=== PATIENT | male | born 1945 | race Caucasian/White ===

== ENCOUNTER → 2018-04-03 | Outpatient (CLI) | payer MEDICARE ==
--- NOTE | 2018-04-03 09:02 | BD ---
EXAMINATION TYPE: Axial Bone Density DATE OF EXAM: 04/03/2018 COMPARISON: NONE CLINICAL HISTORY: Age-related osteoporosis without current fracture per order. Height: 5 FT 10 1/2 IN Weight: 189 FRAX RISK QUESTIONS: RISK FACTORS HISTORY OF: Active: YES MEDICATIONS: Additional Medications: LIPITOR, OVER ACTIVE BLADDER MEDS , Additional History: EXAM MEASUREMENTS: Bone mineral densitometry was performed using the [employer] System. Bone mineral density as measured about the Lumbar spine is: ----- L1-L4(G/cm2): 1.499 T Score Values are as follows: ----- L2: 2.6 ----- L3: 2.7 ----- L4: 3.5 ----- L1-L4: 2.7 BASELINE Bone mineral density about the R hip (g/cm2): 1.043 Bone mineral density about the L hip (g/cm2): 0.981 T Score values are as follows: -----R Neck: 0.0 -----L Neck: -0.4 -----R Total: 1.3 -----L Total: 1.3 BASELINE IMPRESSION: Normal (Values between +1 and -1 indicate normal bone mass). Consider repeating this study in 5 year s or sooner if there is some new clinical indication. NOTE: T-SCORE=SD OF THE YOUNG ADULT MEAN.
== END | disposition home or self-care (01) ==
LOC: RADBDWWP 07:49
PROVIDERS: ATTEND Family Medicine
DX: M81.0 Age-related osteoporosis without current pathological fracture (principal)
CPT/HCPCS: 77080

== ENCOUNTER 2018-07-13 17:05 | Emergency (ER) | payer MEDICARE ==
[2018-07-13 17:33] VITALS: PULSE 64
--- NOTE | 2018-07-13 18:23 | XR ---
EXAMINATION TYPE: XR KUB DATE OF EXAM: 07/13/2018 COMPARISON: NONE HISTORY: Abnormal labs TECHNIQUE: 2 views FINDINGS: 2 views upright were obtained. There is no sign of intestinal obstruction or pneumoperitone um. Fecal pattern is normal. There is minimal atelectasis at the left lung base. There are no patholo gic calcifications over the kidneys. There is retained fecal material throughout the colon. IMPRESSION: There is evidence of some constipation. Nonacute abdomen.
[2018-07-13 19:42] LABS: Basophils # (A) 0.1 k/uL (0-0.2); Basophils % (A) 1 %; Eosinophils # (A) 0.9 k/uL (0-0.7); Eosinophils % (A) 11 %; HCT 44.8 % (39.0-53.0); HGB 14.9 gm/dL (13.0-17.5); Lymphocytes # (A) 1.7 k/uL (1.0-4.8); Lymphocytes % (A) 22 %; MCHC 33.2 g/dL (31.0-37.0); MCV 93.4 fL (80.0-100.0); Monocytes # (A) 0.4 k/uL (0-1.0); Monocytes % (A) 5 %; Neutrophils # (A) 4.4 k/uL (1.3-7.7); Neutrophils % (A) 58 %; Platelet Count 210 k/uL (150-450); RDW 13.8 % (11.5-15.5); WBC 7.6 k/uL (3.8-10.6)
[2018-07-13 19:52] LABS: Albumin 4.7 g/dL (3.5-5.0); Calcium 9.5 mg/dL (8.4-10.2); Potassium 4.5 mmol/L (3.5-5.1); Total Bilirubin 0.5 mg/dL (0.2-1.3); Total Protein 8.1 g/dL (6.3-8.2)
[2018-07-13 20:10] LABS: Appearance,Urine Clear (Clear); Bilirubin,Urine Negative (Negative); Blood,Urine Negative (Negative); Color,Urine Light Yellow; Glucose,Urine (UA) Negative (Negative); Ketones,Urine Negative (Negative); Leukocyte Esterase,Urine Negative (Negative); Nitrite,Urine Negative (Negative); Protein,Urine Negative (Negative); Specific Gravity,Urine 1.005 (1.001-1.035); Urobilinogen,Urine <2.0 mg/dL (<2.0)
[2018-07-13 20:20] VITALS: RESP 16
--- NOTE | 2018-07-13 20:27 | ED ---
Recheck HPI - General Chief Complaint: Recheck/Abnormal Lab/Rx Stated Complaint: abnormal labs-sent by Dr. López Seen by Provider: 07/13/18 20:05 Source: patient, RN notes reviewed, old records reviewed Mode of arrival: ambulatory Limitations: no limitations - History of Present Illness Initial Comments: This is a 73-year-old male to the ER for evaluation. Patient presents today for evaluation regards to elevated CK, abnormal outpatient lab test. Patient had lab test done 2 days ago. He denies any significant complaints urinating without difficulty no significant exertional activity no recent change in medication. Patient's laboratories were done by Dr. Cervantes, they called him today to come to ER for further evaluation management. Again patient is currently asymptomatic MD Complaint: abnormal lab -: unknown Returns Today for: Called Because of Abnormal Lab/Test Symptoms Since Prior Visit: no new symptoms Context: called for abnormal lab result Associated Symptoms: none - Related Data Home Medications Medication Instructions Recorded Confirmed Alfuzosin HCl [Uroxatral] 10 mg PO HS 07/13/18 07/13/18 Ascorbic Acid [Vitamin C] 500 mg PO DAILY 07/13/18 07/13/18 Aspirin EC [Ecotrin Low Dose] 81 mg PO DAILY 07/13/18 07/13/18 Atorvastatin [Lipitor] 10 mg PO HS 07/13/18 07/13/18 Biotin 5 mg PO HS 07/13/18 07/13/18 Cholecalciferol [Vitamin D3] 1,000 unit PO DAILY 07/13/18 07/13/18 Fish Oil/Dha/Epa [Fish Oil 1,200 1 cap PO HS 07/13/18 07/13/18 mg Fish Oil] Mirabegron [Myrbetriq] 50 mg PO HS 07/13/18 07/13/18 Multivitamins, Thera [Multivitamin 1 tab PO DAILY 07/13/18 07/13/18 (formulary)] Vitamin E 1,000 unit PO DAILY 07/13/18 07/13/18 Allergies Allergy/AdvReac Type Severity Reaction Status Date / Time acetaminophen [From Tylenol] AdvReac Mild Unknown Verified 07/13/18 19:49 Review of Systems ROS Statement: Those systems with pertinent positive or pertinent negative responses have been documented in the HPI. ROS Other: All systems not noted in ROS Statement are negative. Past Medical History Past Medical History: Hyperlipidemia History of Any Multi-Drug Resistant Organisms: None Reported Past Surgical History: Hernia Repair Past Psychological History: No Psychological Hx Reported Smoking Status: Never smoker Past Alcohol Use History: None Reported Past Drug Use History: None Reported General Exam Limitations: no limitations General appearance: alert, in no apparent distress Head exam: Present: atraumatic, normocephalic, normal inspection Eye exam: Present: normal appearance, PERRL, EOMI. Absent: scleral icterus, conjunctival injection, periorbital swelling ENT exam: Present: normal exam, mucous membranes moist Neck exam: Present: normal inspection. Absent: tenderness, meningismus, lymphadenopathy Respiratory exam: Present: normal lung sounds bilaterally. Absent: respiratory distress, wheezes, rales, rhonchi, stridor Cardiovascular Exam: Present: regular rate, normal rhythm, normal heart sounds. Absent: systolic murmur, diastolic murmur, rubs, gallop, clicks GI/Abdominal exam: Present: soft, normal bowel sounds. Absent: distended, tenderness, guarding, rebound, rigid Extremities exam: Present: normal inspection, full ROM, normal capillary refill. Absent: tenderness, pedal edema, joint swelling, calf tenderness Back exam: Present: normal inspection Neurological exam: Present: alert, oriented X3, CN II-XII intact Psychiatric exam: Present: normal affect, normal mood Skin exam: Present: warm, dry, intact, normal color. Absent: rash Course Vital Signs 07/13/18 07/13/18 07/13/18 17:30 19:40 19:50 Temperature 98.2 F Pulse Rate 64 Respiratory 18 15 Rate Blood Pressure 166/6 159/86 O2 Sat by Pulse 98 94 L 93 L Oximetry 07/13/18 20:10 Temperature Pulse Rate Respiratory 16 Rate Blood Pressure 144/85 O2 Sat by Pulse 94 L Oximetry - Reevaluation(s) Reevaluation #1: 07/13/18 21:16 Medical record is reviewed Lab values are reviewed Patient is asymptomatic Medical Decision Making - Medical Decision Making 73-year-old male who is a symptomatically coming in for abnormal lab tests. Patient has elevated CPK. CPK is in half compared to what it was 2 days ago Done by primary care, patient given a liter half of IV hydration encouraged increased fluid intake and follow-up with primary care - Lab Data Result diagrams: 07/13/18 19:30 07/13/18 19:30 Lab Results 07/13/18 07/13/18 07/13/18 Range/Units 19:30 19:30 19:30 WBC 7.6 (3.8-10.6) k/uL RBC 4.80 (4.30-5.90) m/uL Hgb 14.9 (13.0-17.5) gm/dL Hct 44.8 (39.0-53.0) % MCV 93.4 (80.0-100.0) fL MCH 31.0 (25.0-35.0) pg MCHC 33.2 (31.0-37.0) g/dL RDW 13.8 (11.5-15.5) % Plt Count 210 (150-450) k/uL Neutrophils % 58 % Lymphocytes % 22 % Monocytes % 5 % Eosinophils % 11 % Basophils % 1 % Neutrophils # 4.4 (1.3-7.7) k/uL Lymphocytes # 1.7 (1.0-4.8) k/uL Monocytes # 0.4 (0-1.0) k/uL Eosinophils # 0.9 H (0-0.7) k/uL Basophils # 0.1 (0-0.2) k/uL Sodium 141 (137-145) mmol/L Potassium 4.5 (3.5-5.1) mmol/L Chloride 104 (98-107) mmol/L Carbon Dioxide 29 (22-30) mmol/L Anion Gap 8 mmol/L BUN 22 H (9-20) mg/dL Creatinine 1.32 H (0.66-1.25) mg/dL Est GFR (CKD-EPI)AfAm 63 (>60 ml/min/1.73 sqM) Est GFR (CKD-EPI)NonAf 54 (>60 ml/min/1.73 sqM) Glucose 90 (74-99) mg/dL Calcium 9.5 (8.4-10.2) mg/dL Total Bilirubin 0.5 (0.2-1.3) mg/dL AST 111 H (17-59) U/L ALT 53 (21-72) U/L Alkaline Phosphatase 73 (38-126) U/L Total Creatine Kinase (55-170) U/L CK-MB (CK-2) (0.0-2.4) ng/mL CK-MB (CK-2) Rel Index Total Protein 8.1 (6.3-8.2) g/dL Albumin 4.7 (3.5-5.0) g/dL Amylase 76 (30-110) U/L Lipase 187 (23-300) U/L Urine Color Light Yellow Urine Appearance Clear (Clear) Urine pH 6.0 (5.0-8.0) Ur Specific Kite 1.005 (1.001-1.035) Urine Protein Negative (Negative) Urine Glucose (UA) Negative (Negative) Urine Ketones Negative (Negative) Urine Blood Negative (Negative) Urine Nitrite Negative (Negative) Urine Bilirubin Negative (Negative) Urine Urobilinogen <2.0 (<2.0) mg/dL Ur Leukocyte Esterase Negative (Negative) 07/13/18 Range/Units 20:17 WBC (3.8-10.6) k/uL RBC (4.30-5.90) m/uL Hgb (13.0-17.5) gm/dL Hct (39.0-53.0) % MCV (80.0-100.0) fL MCH (25.0-35.0) pg MCHC (31.0-37.0) g/dL RDW (11.5-15.5) % Plt Count (150-450) k/uL Neutrophils % % Lymphocytes % % Monocytes % % Eosinophils % % Basophils % % Neutrophils # (1.3-7.7) k/uL Lymphocytes # (1.0-4.8) k/uL Monocytes # (0-1.0) k/uL Eosinophils # (0-0.7) k/uL Basophils # (0-0.2) k/uL Sodium (137-145) mmol/L Potassium (3.5-5.1) mmol/L Chloride (98-107) mmol/L Carbon Dioxide (22-30) mmol/L Anion Gap mmol/L BUN (9-20) mg/dL Creatinine (0.66-1.25) mg/dL Est GFR (CKD-EPI)AfAm (>60 ml/min/1.73 sqM) Est GFR (CKD-EPI)NonAf (>60 ml/min/1.73 sqM) Glucose (74-99) mg/dL Calcium (8.4-10.2) mg/dL Total Bilirubin (0.2-1.3) mg/dL AST (17-59) U/L ALT (21-72) U/L Alkaline Phosphatase (38-126) U/L Total Creatine Kinase 1506 H* (55-170) U/L CK-MB (CK-2) 11.9 H (0.0-2.4) ng/mL CK-MB (CK-2) Rel Index 0.8 Total Protein (6.3-8.2) g/dL Albumin (3.5-5.0) g/dL Amylase (30-110) U/L Lipase (23-300) U/L Urine Color Urine Appearance (Clear) Urine pH (5.0-8.0) Ur Specific Kite (1.001-1.035) Urine Protein (Negative) Urine Glucose (UA) (Negative) Urine Ketones (Negative) Urine Blood (Negative) Urine Nitrite (Negative) Urine Bilirubin (Negative) Urine Urobilinogen (<2.0) mg/dL Ur Leukocyte Esterase (Negative) Disposition Clinical Impression: Abnormal laboratory test result, Rhabdomyolysis, ARF (acute renal failure) Disposition: HOME SELF-CARE Condition: Good Instructions: Rhabdomyolysis (ED), Acute Kidney Injury (DC) Is patient prescribed a controlled substance at d/c from ED?: No Referrals: Víctor Cervantes DO [Primary Care Provider] - 1-2 days
[2018-07-13 20:39] LABS: Creatine Kinase MB 11.9 ng/mL (0.0-2.4)
[2018-07-13] MEDS ORDERED: SODIUM CHLORIDE 0.9% 500 ML 500 ML IV STA (21:02)
[2018-07-13] MEDS ORDERED: SODIUM CHLORIDE 0.9% 1,000 ML IV STA (21:02)
[2018-07-13 23:49] VITALS: TEMP 98.4
[2018-07-13 23:51] VITALS: BP 160/87
== END 2018-07-13 23:46 | disposition home or self-care (01) ==
LOC: EC 17:05
DX: N17.9 Acute kidney failure, unspecified (principal); M62.82 Rhabdomyolysis; R74.8 Abnormal levels of other serum enzymes; E78.5 Hyperlipidemia, unspecified; Z79.82 Long term (current) use of aspirin; Z79.899 Other long term (current) drug therapy; Z88.6 Allergy status to analgesic agent
CPT/HCPCS: 36415; 74018; 80053; 81003; 82150; 82550; 82553; 83690; 85025; 96360; 99284

== ENCOUNTER → 2018-07-25 | Outpatient (CLI) | payer MEDICARE ==
--- NOTE | 2018-07-25 13:31 | MR ---
EXAMINATION TYPE: MR pituitary wo/w con DATE OF EXAM: 07/25/2018 COMPARISON: NONE HISTORY: Hypopituitarism per order. TECHNIQUE: Multiplanar, multisequence images of the brain and brainstem is performed without and with IV contras t, utilizing 9 mL intravenous Gadavist . Exam is performed under pituitary gland protocol. FINDINGS: There is somewhat empty sella appearance. No suspicious sellar mass is present to suggest m acroadenoma. Pituitary stalk shows normal enhancement in the midline coronal image 12. No definitive areas of nonenhancement is seen to suggest microadenoma. Suprasellar cistern is maintained. Visualized portion of brain shows no gross hydrocephalus. Craniocervical junction appears within norm al limits. IMPRESSION: Empty sella appearance. No MRI evidence for pituitary micro or macroadenoma.
== END | disposition home or self-care (01) ==
LOC: RADMRIMAIN 10:14
PROVIDERS: ATTEND Internal Medicine Endocrinology, Diabetes & Metabolism
DX: E23.0 Hypopituitarism (principal); R94.6 Abnormal results of thyroid function studies
CPT/HCPCS: 82565; 70553; 36415; A9585

== ENCOUNTER → 2018-08-04 | Outpatient (CLI) | payer MEDICARE ==
[~2018-08-04] MED LIST: COSYNTROPIN 0.25 MG VIAL IVP ONE; SODIUM CHLORIDE 0.9% 500 ML 500 ML in EMPTY BAG 1 BAG IV PRN
[2018-08-04 13:20] VITALS: BP 149/82; PULSE 66; RESP 16; TEMP 97.8
== END | disposition home or self-care (01) ==
LOC: PROCWHC3 12:56
PROVIDERS: ATTEND Internal Medicine Endocrinology, Diabetes & Metabolism
DX: E23.6 Other disorders of pituitary gland (principal)
CPT/HCPCS: 82533; 82024; 96374; J0834

== ENCOUNTER 2019-01-16 11:09 | Day surgery (SDC) | payer MEDICARE ==
[2019-01-15 10:52] VITALS: BMI 26.4
[~2019-01-16 11:09] MED LIST changes: -COSYNTROPIN 0.25 MG VIAL IVP ONE; +LACTATED RINGERS 1,000 ML IV SCH; -SODIUM CHLORIDE 0.9% 500 ML 500 ML in EMPTY BAG 1 BAG IV PRN
[2019-01-16 11:38] VITALS: RESP 16; TEMP 97.7
[2019-01-16] MEDS ORDERED: LACTATED RINGERS 1,000 ML IV ONE (11:47)
[2019-01-16] MEDS ORDERED: LIDOCAINE 1% 20 ML VIAL (10MG/ML) FOR IV START SQ ONE (11:48)
[2019-01-16] MEDS ORDERED: PROPOFOL 10 MG/ML 20 ML VIAL IV ONE (13:29)
[2019-01-16] MEDS ORDERED: LIDOCAINE 1% INJ 10MG/ML (20 ML MDV) ONE (13:29)
[2019-01-16 14:17] VITALS: PULSE 58
[2019-01-16 14:39] VITALS: BP 150/84
--- NOTE | 2019-01-16 14:39 | P.PCN ---
Date of Procedure: 01/16/19 Procedure(s) Performed: Procedure: Colonoscopy. Preoperative diagnosis: Screening for neoplasia. Postoperative diagnosis: Poor preparation with no obvious pathology noted. Preparation: HalfLytely prep. Sedation: Was provided by anesthesia. Brief clinical history the patient is a 73-year-old male who is scheduled for this evaluation for screening for neoplasia. Prior exam in 2011 revealed poor preparation. The patient has no abdominal complaints, bleeding or anemia. Procedure: With the patient on his left lateral decubitus position and after informed consent and adequate sedation, the perianal area was inspected and it did not show any fissures or fistulas. There were no masses felt on digital rectal examination. The Olympus CFH 190L video colonoscope was then inserted in the rectum in the usual fashion and advanced. Unfortunately, the preparation was poor and it did not get any better as I was advancing the endoscope making it hard to exclude with confidence polyps, tumors or significant pathology. Where visualized, the mucosa appeared healthy. The patient tolerated the procedure well. Plan: I summarized the findings to the patient and his and I recommended repeat exam in 2-3 years after today preparation. He will follow up with you as planned.
== END 2019-01-16 14:41 | disposition home or self-care (01) ==
LOC: ORWHC2ENDO 11:09
DX: Z12.11 Encounter for screening for malignant neoplasm of colon (principal); E07.9 Disorder of thyroid, unspecified; E78.5 Hyperlipidemia, unspecified; N18.9 Chronic kidney disease, unspecified; Z79.82 Long term (current) use of aspirin; Z79.890 Hormone replacement therapy; Z79.899 Other long term (current) drug therapy; Z88.6 Allergy status to analgesic agent; Z85.828 Personal history of other malignant neoplasm of skin
CPT/HCPCS: J2001; J2704; G0121

== ENCOUNTER 2020-03-21 06:26 | Day surgery (SDC) | payer MEDICARE ==
[2020-03-18 09:07] VITALS: BMI 25.7
[~2020-03-21 06:26] MED LIST changes: +ALPRAZolam 0.25 MG TAB PO PRN; +ALPRAZolam 0.5 MG TAB PO PRN; +ASPIRIN 325 MG TAB PO STA; +ATORVASTATIN 80 MG TAB PO STA; -LACTATED RINGERS 1,000 ML IV SCH; +NITROGLYCERIN SL TABS 0.4 MG TAB SUBLINGUAL PRN; +SODIUM CHLORIDE 0.9% 1,000 ML in EMPTY BAG 1 BAG IV ONE
[2020-03-21] MEDS ORDERED: fentaNYL (PF) 50 MCG/ML 2 ML AMP ONE (07:29)
[2020-03-21] MEDS ORDERED: fentaNYL (PF) 50 MCG/ML 2 ML AMP IVP ONE (07:32)
[2020-03-21] MEDS ORDERED: MIDAZOLAM 2 MG/2 ML VIAL IVP ONE (07:35)
[2020-03-21] MEDS ORDERED: LIDOCAINE 1% INJ 10MG/ML (20 ML MDV) SQ ONE (07:36)
[2020-03-21] MEDS ORDERED: HEPARIN SODIUM 1,000 UN/ML (10ML VL) ONE (07:38)
[2020-03-21] MEDS ORDERED: VERAPAMIL SYRINGE (5 MG/10 ML) INTRAARTER ONE (07:40)
[2020-03-21] MEDS ORDERED: HEPARIN SODIUM 1,000 UN/ML (10ML VL) IV ONE (07:46)
[2020-03-21] MEDS ORDERED: NITROGLYCERIN 1000MCG/10ML SYRINGE INTRACORON ONE (07:46)
[2020-03-21] MEDS ORDERED: IOPAMIDOL-370 100ML BTL INJ ONE (07:58)
[2020-03-21] MEDS ORDERED: RX INFO: IV CONTRAST WAS GIVEN 1 EACH MISC MISCELLANE PRN (08:11)
[2020-03-21] MEDS ORDERED: SODIUM CHLORIDE 0.9% 1,000 ML IV SCH (08:15)
[2020-03-21] MEDS ORDERED: ASPIRIN 81 MG PO SCH (09:00)
--- NOTE | 2020-03-21 09:30 | CC ---
CARDIAC CATHETERIZATION REPORT Mr. Faith is a 74-year-old male with known history of hyperlipidemia, family history of premature coronary artery disease who has been complaining of a progressive exertional chest discomfort radiating to the arm with dyspnea. In view of that, recommendation made regarding cardiac catheterization. The procedures, risks, and complication were discussed with the patient who is in full understanding and agreement. PROCEDURE: Patient was brought to laboratory engineer in a fasting semi-sedated state after receiving fentanyl and Benadryl and achieving moderate conscious sedated state. Using Xylocaine anesthesia and Seldinger technique, a 6-Mozambican sheath was introduced in the right radial artery. Selective right and left coronary angiography performed using 5-Mozambican 3.5 bend right and left Eddie catheter. Multiple views of the coronary artery including hemiaxial views obtained. Following that. 5-Mozambican tight pigtail catheter was introduced in the left ventricle and a 30-degree ZELAYA view of the left ventricle was obtained. Following that, catheter and sheath were removed. Hemostasis was obtained with deployment of a TR band. There was no immediate complication. Patient is returned to his room in stable condition. FINDINGS: FLUOROSCOPY: There was calcification involving the left anterior descending artery. LEFT MAIN: This is a short size vessel, bifurcating into left circumflex, left anterior descending artery. Left main coronary artery has no evidence of high-grade stenosis. LEFT ANTERIOR DESCENDING ARTERY: This is a large-sized vessel, reaching toward the apex, calcified. The proximal segment of the LAD has a 40% plaque after the takeoff of the first septal manager recovery. There is a long area of severe stenosis up to 99% stenosis. In the middle of that area there is a moderately-sized diagonal branch. There is slow flow in the distal LAD. LEFT CIRCUMFLEX: This is a nondominant vessel, giving rise to a large obtuse marginal branch. The left circumflex obtuse marginal branch has about a 70% stenosis involving the obtuse marginal branch. The rest of the vessel has no high-grade stenosis. RIGHT CORONARY ARTERY: This is a dominant vessel, moderate in caliber, bifurcating distally into PDA and posterolateral segment and branches. The right coronary artery in the distal segment has a 99% stenosis. The PDA has diffuse intimal disease up to 99% stenosis. LEFT VENTRICULOGRAM: Left ventriculogram is performed in 30-degree ZELAYA view and revealed an anteroapical mild hypokinesis. The estimated ejection fraction 50%. There was no significant mitral regurgitation. HEMODYNAMICS: There was no gradient across the aortic valve. The left ventricular end- diastolic pressure was 12-16 mmHg. CONCLUSION: 1. Severe triple-vessel coronary artery disease. 2. Minimally impaired left ventricular systolic function. RECOMMENDATION: In view of impending and the anatomy, I recommend proceeding with evaluation for possible coronary artery bypass grafting. The rationale behind that was discussed with the patient. Depending on that, further recommendation will be made. The patient was in full understanding and agreement. Duration of procedure is 21 minutes. MMODL / IJN: [id number] /
--- NOTE | 2020-03-21 09:33 | LTR ---
DATE OF SERVICE: 03/21/2020 RE: Luis Felipe Faith Dear Dr. Cervantes; I had the pleasure to perform cardiac catheterization on Mr. Faith at [facility] on March 21, 2020 and a full copy of the procedure note will be forwarded to you. In brief, he was found to have severe triple-vessel coronary artery disease and in view of that, I have recommended proceeding with evaluation for coronary artery bypass grafting. I will keep you updated on his progress and thank you again for allowing me to participate in this patient's care. Please feel free to call for any questions. Sincerely yours, MD MADONNA Smith / [place]: [id number] /
[2020-03-21] MEDS: ISOSORBIDE MONONITRATE ER 30 MG TAB.ER.24H PO SCH (10:19)
[2020-03-21] MEDS: MULTIVITAMINS, THERA 1 EACH TAB PO SCH (10:20)
[2020-03-21] MEDS: LEVOTHYROXINE 125 MCG TAB PO SCH (10:20)
[2020-03-21] MEDS: TROSPIUM CHLORIDE 20 MG TABLET PO SCH (10:20)
--- NOTE | 2020-03-21 10:48 | P.GSCN ---
History of Present Illness Consult date: 03/21/20 Reason for Consult: Coronary artery disease Requesting physician: Stepan Asif History of present illness: This is a 74-year-old active gentleman who follows on an outpatient basis with Dr. Cervantes. He has a previous medical history of hyperlipidemia, hypothyroid, BPH, and family history of premature coronary artery disease with father dying of myocardial infarction at 48 years old. He is a lifelong nonsmoker and very active, walking on the treadmill daily. Recently he has experienced chest discomfort/pressure and shortness of breath with exertion. He also has noticed decreased exercise tolerance. His symptoms are relieved with rest. He has no other aggravating or alleviating symptoms. In December 2019 he had a stress echo which demonstrated borderline EKG changes. He did continue to follow with Dr. Asif who recommended heart catheterization and transthoracic echocardiogram. His echo was completed in Dr. Asif's office on March 13 and demonstrated normal left ventricular systolic function with EF 55%, no regional wall motion abnormalities, mild mitral regurgitation, trace aortic insufficiency, and mild tricuspid regurgitation. Heart catheterization was completed today by Dr. Asif with proximal LAD 40% stenosis, mid LAD long segment of 99% stenosis, obtuse marginal branch of the left circumflex with 70% stenosis, right coronary with 99% stenosis along with PDA 99% stenosis. LV gram revealed mild anteroapical hypokinesis with EF 50%. Due to these findings consultation was placed to Dr. Dodd from cardiothoracic surgery. 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% " , History of Any Multi-Drug Resistant Organisms: None Reported Past Surgical History: Hernia Repair Past Anesthesia/Blood Transfusion Reactions: No Reported Reaction Past Psychological History: No Psychological Hx Reported Smoking Status: Never smoker Past Alcohol Use History: None Reported Past Drug Use History: None Reported - Past Family History Mother Family Medical History: Congestive Heart Failure (CHF) Father Family Medical History: Coronary Artery Disease (CAD), Myocardial Infarction ([place]) Additional Family Medical History / Comment(s): Father at 48 years old from myocardial infarction Medications and Allergies Home Medications Medication Instructions Recorded Confirmed Type Alfuzosin HCl [Uroxatral] 10 mg PO HS 07/13/18 03/21/20 History Aspirin EC [Ecotrin Low Dose] 81 mg PO DAILY 07/13/18 03/21/20 History Fish Oil/Dha/Epa [Fish Oil 1,200 1 cap PO HS 07/13/18 03/21/20 History mg Fish Oil] Multivitamins, Thera [Multivitamin 1 tab PO DAILY 07/13/18 03/21/20 History (formulary)] Levothyroxine Sodium [Synthroid] 125 mcg PO DAILY 01/15/19 03/21/20 History Fesoterodine Fumarate [Toviaz] 4 mg PO DAILY 03/18/20 03/21/20 History Rosuvastatin Calcium [Crestor] 5 mg PO DAILY 03/18/20 03/21/20 History Allergies Allergy/AdvReac Type Severity Reaction Status Date / Time acetaminophen [From Tylenol] AdvReac Mild CONGESTION Verified 03/18/20 08:59 Surgical - Exam Vital Signs Temp Resp BP Pulse Ox 98.0 F 16 142/65 97 03/21/20 06:50 03/21/20 06:50 03/21/20 06:50 03/21/20 06:50 - General well developed, well nourished, no distress, no pain - Eyes PERRL, normal ocular movement - ENT no hearing loss - Neck no masses, no bruits, trachea midline - Respiratory Lungs sounds clear bilaterally. Respirations even, nonlabored. Currently on room air with oxygen saturation 96%. No chest wall deformities. No clubbing or cyanosis present. - Cardiovascular S1, S2 present. Slow but regular rate and rhythm, sinus bradycardia with heart rate in the 50s on telemetry. Palpable peripheral pulses bilaterally. Right radial artery heart catheterization site well approximated, T band in place. No edema present. No calf pain or tenderness noted. No varicosities noted. - Abdomen Abdomen: soft, non tender, bowel sounds - Genitourinary Deferred - Rectum Deferred - Integumentary no rash, no growths, no abnormal pigmentation - Neurologic normal coordination, normal sensation - Musculoskeletal normal posture - Psychiatric oriented to time, oriented to person, oriented to place, speech is normal, memory intact Results - Imaging Additional studies: Heart catheterization films reviewed with Dr. Yousif Assessment and Plan Assessment: 1. Coronary artery disease 2. History of hyperlipidemia, treated 3. Hypothyroid 4. BPH 5. Family history of premature coronary artery disease 6. Lifelong nonsmoker Plan: The patient was seen and examined at the bedside. Chart/diagnostics reviewed including heart catheterization films reviewed with Dr. Dodd. Dr. Dodd and Dr. Asif did discuss with the patient's films. The usual perioperative course of coronary artery bypass surgery was discussed in detail the patient and his , risks and benefits reviewed, all questions were answered. The patient is agreeable to surgery, preoperative testing was initiated. Once testing is completed we will calculate an STS risk score and will discuss with the patient and his . 5 m walk test will be completed today by cardiac rehab. We recommend continuing aspirin, statin. We would recommend beta george therapy, however the patient has been bradycardic in the low 50s and may not tolerate beta george. We will plan for elective surgery in the next couple of weeks, date to be determined. More recommendations to follow once Dr. Dodd has seen the patient. Thank you Dr. Asif for this consult. We look forward to working with you in the care of your patient. Time with Patient: Greater than 30
[2020-03-21 10:59] LABS: Basophils # (A) 0.1 k/uL (0-0.2); Basophils % (A) 1 %; Eosinophils # (A) 1.2 k/uL (0-0.7); Eosinophils % (A) 15 %; HCT 41.6 % (39.0-53.0); HGB 13.7 gm/dL (13.0-17.5); Lymphocytes # (A) 1.5 k/uL (1.0-4.8); Lymphocytes % (A) 20 %; MCH 29.9 pg (25.0-35.0); MCHC 32.9 g/dL (31.0-37.0); MCV 91.1 fL (80.0-100.0); Mean Platelet Volume 7.7; Monocytes # (A) 0.4 k/uL (0-1.0); Monocytes % (A) 5 %; Neutrophils # (A) 4.3 k/uL (1.3-7.7); Neutrophils % (A) 56 %; Platelet Count 172 k/uL (150-450); RBC 4.57 m/uL (4.30-5.90); RDW 13.2 % (11.5-15.5); WBC 7.7 k/uL (3.8-10.6)
[2020-03-21 11:15] LABS: ALT 23 U/L (4-49); AST 29 U/L (17-59); African American GFR (CKD) >90 (>60 ml/min/1.73 sqM); Albumin 3.7 g/dL (3.5-5.0); Alkaline Phosphatase 76 U/L (38-126); Anion Gap 6 mmol/L; Blood Urea Nitrogen 20 mg/dL (9-20); Calcium 8.5 mg/dL (8.4-10.2); Carbon Dioxide 25 mmol/L (22-30); Chloride 107 mmol/L (98-107); Cholesterol 136 mg/dL (<200); Glucose 123 mg/dL (74-99); HDL Cholesterol 31 mg/dL (40-60); LDL Cholesterol,Calculated 51 mg/dL (0-99); Magnesium 2.1 mg/dL (1.6-2.3); Non-African American GFR(CKD) 90 (>60 ml/min/1.73 sqM); Potassium 4.4 mmol/L (3.5-5.1); Sodium 138 mmol/L (137-145); Total Bilirubin 0.7 mg/dL (0.2-1.3); Total Protein 6.4 g/dL (6.3-8.2); Triglycerides 272 mg/dL (<150)
[2020-03-21 11:20] LABS: INR 1.2 (<1.2); Partial Thromboplastin Time 49.6 sec (22.0-30.0); Prothrombin Time 11.8 sec (9.0-12.0)
[2020-03-21 12:17] LABS: Appearance,Urine Clear (Clear); Bilirubin,Urine Negative (Negative); Blood,Urine Negative (Negative); Color,Urine Light Yellow; Glucose,Urine (UA) Negative (Negative); Ketones,Urine Negative (Negative); Leukocyte Esterase,Urine Negative (Negative); Nitrite,Urine Negative (Negative); Protein,Urine Negative (Negative); Urobilinogen,Urine <2.0 mg/dL (<2.0)
[2020-03-21 12:22] LABS: Specific Gravity,Urine 1.046 (1.001-1.035)
[2020-03-21 12:24] LABS: T4, Free (Free Thyroxine) 1.61 ng/dL (0.78-2.19)
--- NOTE | 2020-03-21 13:39 | US ---
EXAMINATION TYPE: US carotid duplex BILAT DATE OF EXAM: 03/21/2020 COMPARISON: NONE CLINICAL HISTORY: Pre-Op Cardiac Surgery. Heart surgery EXAM MEASUREMENTS: RIGHT: Peak Systolic Velocity (PSV) cm/sec ----- Right CCA: 66.4 ----- Right ICA: 93.8 ----- Right ECA: 67.7 ICA/CCA ratio: 1.4 RIGHT: End Diastole cm/sec ----- Right CCA: 12.9 ----- Right ICA: 22 ----- Right ECA: 0 LEFT: Peak Systolic Velocity (PSV) cm/sec ----- Left CCA: 70.3 ----- Left ICA: 89.9 ----- Left ECA: 82.0 ICA/CCA ratio: 1.3 LEFT: End Diastole cm/sec ----- Left CCA: 14.2 ----- Left ICA: 27.3 ----- Left ECA: 0 VERTEBRALS (direction of flow): Right Vertebral: Antegrade Left Vertebral: Antegrade Rhythm: Normal Intimal thickening. No significant stenosis seen IMPRESSION: 1. No significant hemodynamic stenosis as visualized. Criteria for Assigning % of Stenosis / Diameter reduction (Estimation based on the indirect measurements of the internal carotid artery velocities (ICA PSV). 1. Normal (no stenosis)=ICA PSV < 125 cm/s: ratio < 2.0: ICA EDV<40 cm/s. 2. Less than 50% stenosis=ICA PSV < 125 cm/s: ratio < 2.0: ICA EDV<40 cm/s. 3. 50 to 69% stenosis=ICA PSV of 125 to 230 cm/s: ration 2.0 ? 4.0: ICA EDV 40-100 cm/s. 4. Greater than 70% stenosis to near occlusion= ICA PSV > 230 cm/s: ratio > 4.0: ICA EDV > 100 cm/s. 5. Near occlusion= ICA PSV velocities may be low or undetectable: variable ratio and ICA EDV. 6. Total occlusion=unable to detect flow.
[2020-03-21 15:49] LABS: Hepatitis A Antibody IgM Non-Reactive (Non-Reactive); Hepatitis B Core IgM Non-Reactive (Non-Reactive); Hepatitis B Surface Antigen Non-Reactive (Non-Reactive); Hepatitis C IgG Antibody Non-Reactive (Non-Reactive)
--- NOTE | 2020-03-21 16:40 | XR ---
EXAMINATION TYPE: XR chest 2V DATE OF EXAM: 03/21/2020 COMPARISON: NONE HISTORY: Preop TECHNIQUE: FINDINGS: Heart is normal. Lungs are clear of consolidation. There are no hilar masses. Costophrenic angles are clear. There are chest leads. Bony thorax is intact. IMPRESSION: No active cardiopulmonary disease.
[2020-03-21 17:39] LABS: Hemoglobin A1C 5.1 % (4.0-6.0)
[2020-03-21] MEDS ORDERED: TAMSULOSIN 0.4 MG CAP.ER.24H PO SCH (21:00)
[2020-03-21] MEDS ORDERED: NON FORMULARY DRUG (Fish Oil/Dha/Epa [Fish Oil 1,200 Mg Fish Oil] 1 CAP) PO SCH (21:00)
[2020-03-22] MEDS: LEVOTHYROXINE 125 MCG TAB PO SCH (05:59)
[2020-03-22 06:39] LABS: African American GFR (CKD) >90 (>60 ml/min/1.73 sqM); Anion Gap 3 mmol/L; Blood Urea Nitrogen 20 mg/dL (9-20); Carbon Dioxide 28 mmol/L (22-30); Chloride 108 mmol/L (98-107); Glucose 90 mg/dL (74-99); Non-African American GFR(CKD) 88 (>60 ml/min/1.73 sqM); Potassium 4.4 mmol/L (3.5-5.1); Sodium 139 mmol/L (137-145)
[2020-03-22 07:57] VITALS: BP 133/72; PULSE 75; RESP 12; TEMP 97.7
[2020-03-22] MEDS: TROSPIUM CHLORIDE 20 MG TABLET PO SCH (08:23)
[2020-03-22] MEDS: ISOSORBIDE MONONITRATE ER 30 MG TAB.ER.24H PO SCH (08:23)
[2020-03-22] MEDS: MULTIVITAMINS, THERA 1 EACH TAB PO SCH (08:23)
[2020-03-22] MEDS ORDERED: ASPIRIN 81 MG PO SCH (09:00)
[2020-03-22] MEDS ORDERED: ATORVASTATIN 40 MG TAB PO SCH (09:00)
--- NOTE | 2020-03-22 09:37 | PN ---
PROGRESS NOTE Mr. Faith is a 74-year-old male with a family history of coronary disease, history of hyperlipidemia, who presented with symptoms of angina pectoris. Underwent cardiac catheterization and was found to have critical severe triple-vessel coronary artery disease. He is doing well this morning. His breathing has been stable. He denies any dizziness or palpitations. Continues on aspirin once a day, Lipitor 40 mg daily, isosorbide mononitrate 30 mg daily, levothyroxine 0.125 mg daily, Flomax 0.4 mg daily. PHYSICAL EXAMINATION: Blood pressure 133/70 with a heart rate in 70s. LUNGS: Clear. HEART: Regular rate and rhythm S1, S2. No S3. No rub. ABDOMEN: Soft. Nontender. Right radial pulse intact. EXTREMITIES: No edema. LAB DATA: Revealed BUN and creatinine 20 and 0.83, potassium 4.4. IMPRESSION: 1. Severe triple-vessel coronary artery disease. 2. Hyperlipidemia. RECOMMENDATION: Patient has been evaluated by Dr. Dodd and scheduled to undergo coronary bypass grafting on March 31. He will resume his metoprolol tartrate 25 mg twice a day, continue with his medical regimen. I have discussed with the patient the rationale behind the recommendation as well as the plans and he is in full understanding and agreement. MMODL / IJN: [id number] /
--- NOTE | 2020-03-26 12:19 | P.ARTDOP ---
Arterial Doppler LOWER EXTREMITY ARTERIAL DOPPLER: DATE OF SERVICE: 03/21/2020 Reason for study: Preop CABG. Doppler waveforms: Multiphasic bilaterally throughout. Pulse volume recording: []. Pressure gradients: None. Ankle-brachial indices: Greater than 1 bilaterally. Toe brachial indices: [] on the right, [] on the left Impression: Normal study.
--- NOTE | 2020-03-26 12:21 | P.VSCSTY ---
Greater Saphenous Vein Mapping This is bilateral lower extremity greater saphenous vein mapping. Date of service: 03/21/2020 Vein quality and ultrasound appearance: We see no intraluminal thrombus or wall changes. Vein size groin right : 6 x 4.3 groin left: 5.7 x 5.3 High thigh right: 4.4 x 3.4 high thigh left: 4.4 x 3.4 Mid thigh right: 4.4 x 4.1 mid thigh left: 3.7 x 2.6 Above-knee right: 4.1 x 3.4 above- knee left: 2.6 x 3.2 Below knee right: 2.9 x 2.8 below-knee left: 4 x 2.6 Mid calf right: 3.6 x 2.6 mid calf left: 2.2 x 1.9 Ankle right: 3.8 x 3.1 ankle left: 1.6 x 1.2 Impression: Usable bilateral greater saphenous vein. Lower leg on the left appears small for use.
== END 2020-03-22 10:14 | disposition home or self-care (01) ==
LOC: CATHCVL 06:26 → 3NCARDOBS 08:29 → CATHCVL 03-22 10:14
PROVIDERS: ATTEND Internal Medicine Interventional Cardiology
DX: I25.110 Atherosclerotic heart disease of native coronary artery with unstable angina pectoris (principal); I51.9 Heart disease, unspecified; R07.89 Other chest pain; R06.02 Shortness of breath; R06.09 Other forms of dyspnea; Z01.810 Encounter for preprocedural cardiovascular examination; E78.2 Mixed hyperlipidemia; E03.9 Hypothyroidism, unspecified; N40.0 Benign prostatic hyperplasia without lower urinary tract symptoms; Z11.59 Encounter for screening for other viral diseases; Z79.899 Other long term (current) drug therapy; Z79.890 Hormone replacement therapy; Z79.82 Long term (current) use of aspirin; Z88.6 Allergy status to analgesic agent; Z87.19 Personal history of other diseases of the digestive system; Z98.890 Other specified postprocedural states; Z85.828 Personal history of other malignant neoplasm of skin; Z82.49 Family history of ischemic heart disease and other diseases of the circulatory system
CPT/HCPCS: 94150; 93458; 84439; 80061; 80053; 80048; 80074; 84443; 83735; 85025; 85610; 85730; 81003; 87070; 83036; 71046; 93970; 93922; 93880; C1769 ×2; C1894; U0003; J2250; J2001; J3010; J1644; Q9967; 86850; 86900; 86901

== ENCOUNTER 2020-03-31 05:31 | Inpatient (IN) | payer MEDICARE ==
[~2020-03-31 05:31] MED LIST changes: +ALBUMIN HUMAN 25% 50 ML IV ONE; +ALBUMIN HUMAN 5% 500 ML IVPB ONE; -ALPRAZolam 0.25 MG TAB PO PRN; -ALPRAZolam 0.5 MG TAB PO PRN; +ASPIRIN 325 MG TAB PO ONE; -ASPIRIN 325 MG TAB PO STA; +ATORVASTATIN 10 MG TAB PO ONE; -ATORVASTATIN 80 MG TAB PO STA; +CALCIUM CHLORIDE 100 MG/ML 10 ML SYRINGE IV ONE; +CHLORHEXIDINE GLUCONATE 15 ML CUP MUCOUS MEM ONE; +CLEVIDIPINE BUTYRATE 25 MG in EMPTY BAG 1 BAG IV ONE; +DEXTROSE 5% IN WATER 1,000 ML with POTASSIUM CHLORIDE 110 MEQ, MAGNESIUM SULFATE 16 MEQ... IV ONE; +DEXTROSE 5% IN WATER 1,000 ML with POTASSIUM CHLORIDE 25 MEQ, SODIUM CHLORIDE 2.5MEQ/ML... IRRIGATION ONE; +HEPARIN SODIUM 1,000 UN/ML (10ML VL) IV ONE; +HEPARIN SODIUM,PORCINE 5,000 UNIT in SODIUM CHLORIDE 0.9% 500 ML 500 ML IV ONE; +INSULIN REGULAR 100 UNIT in SODIUM CHLORIDE 0.9% 100 ML IV ONE; +LACTATED RINGERS 1,000 ML IV ONE; +LACTATED RINGERS 1,000 ML IV SCH; +MAGNESIUM SULFATE MG 500 MG/ML IV ONE; +MANNITOL 25% 12.5 GM/50 ML VIAL IV ONE; +METOPROLOL TARTRATE 12.5 MG TAB PO ONE; +MIDAZOLAM 2 MG/2 ML VIAL IV PRN; -NITROGLYCERIN SL TABS 0.4 MG TAB SUBLINGUAL PRN; +NITROGLYCERIN-D5W PMX 25 MG/250 ML BTL IV ONE; +NITROGLYCERIN-D5W PMX 50 MG in DEXTROSE/WATER 1 250ML.BAG IV ONE; +NOREPINEPHRINE 4 MG in SODIUM CHLORIDE 0.9% 250 ML IV ONE; +PAPAVERINE 360 MG in SODIUM CHLORIDE 0.9% 90 ML IV ONE; +PHENYLEPHRINE 10 MG/ML VIAL IV ONE; +PHENYLEPHRINE 40 MG in SODIUM CHLORIDE 0.9% 250 ML IV ONE; +PROTAMINE SULFATE 10 MG/ML 25 ML VIAL IV ONE; +PROTAMINE SULFATE 250 MG in EMPTY BAG 1 BAG IV ONE; +SODIUM BICARB 8.4% 50 ML SYR (1 MEQ/ML) IV ONE; +SODIUM CHLORIDE 0.9% 1,000 ML IV ONE; -SODIUM CHLORIDE 0.9% 1,000 ML in EMPTY BAG 1 BAG IV ONE; +TRANEXAMIC ACID 2,000 MG in SODIUM CHLORIDE 0.9% 80 ML IV ONE; +ceFAZolin 2,000 MG in SODIUM CHLORIDE 0.9% 30 ML IVPB ONE; +propofoL 1,000 MG/100 ML VIAL IV ONE
[2020-03-31] MEDS ORDERED: MUPIROCIN 2% OINT 22 GM TUBE NASAL ONE (06:00)
[2020-03-31] MEDS ORDERED: CHLORHEXIDINE GLUCONATE 15 ML CUP MUCOUS MEM ONE (06:08)
[2020-03-31] MEDS ORDERED: LIDOCAINE 1% (10MG/ML) FOR IV START INTRADERMA ONE (06:18)
[2020-03-31] MEDS ORDERED: ELECTROLYTE-R (PH 7.4) 1,000 ML IV.SOLN IV ONE (06:45)
[2020-03-31] MEDS ORDERED: SODIUM CHLORIDE 0.9% 250 ML BAG ONE (06:45)
[2020-03-31] MEDS ORDERED: fentaNYL (PF) 50 MCG/ML 2 ML AMP ONE (06:45)
[2020-03-31] MEDS ORDERED: ALBUMIN HUMAN 5% (25gm) 500 ML VIAL IVPB ONE (06:45)
[2020-03-31] MEDS ORDERED: ceFAZolin 1,000 MG VIAL ONE (06:45)
[2020-03-31] MEDS ORDERED: SODIUM BICARB 8.4% 50 ML SYR (1 MEQ/ML) ONE (06:45)
[2020-03-31] MEDS ORDERED: fentaNYL (PF) 50 MCG/ML 50 ML VIAL ONE (06:45)
[2020-03-31] MEDS ORDERED: PROTAMINE SULFATE 10 MG/ML 5 ML VIAL IV ONE (06:45)
[2020-03-31] MEDS ORDERED: TRANEXAMIC ACID 1,000 MG/10 ML VIAL ONE (06:45)
[2020-03-31] MEDS ORDERED: NITROGLYCERIN-D5W PMX 50 MG/250 ML BOTTLE IV ONE (06:45)
[2020-03-31] MEDS ORDERED: LIDOCAINE 2% SYG (PF) 100 MG/5 ML ONE (06:45)
[2020-03-31] MEDS ORDERED: PROPOFOL 10 MG/ML 20 ML VIAL IV ONE (06:45)
[2020-03-31] MEDS ORDERED: VECURONIUM 10 MG VIAL IV ONE (06:45)
[2020-03-31] MEDS ORDERED: SODIUM CHLORIDE 0.9% IRRIG 1,000 ML BTL IRRIGATION ONE (06:45)
[2020-03-31] MEDS ORDERED: HEPARIN SODIUM,PORCINE 10,000 UNIT/ML 1 ML VIAL ONE (06:45)
[2020-03-31] MEDS ORDERED: MIDAZOLAM 2 MG/2 ML VIAL ONE (06:45)
[2020-03-31] MEDS ORDERED: MAGNESIUM SULFATE 4 MEQ/ML 10ML VIAL ONE (06:45)
[2020-03-31] MEDS ORDERED: ePHEDrine SULFATE/0.9% NACL/PF 50 MG/5 ML SYRINGE IV ONE (06:45)
[2020-03-31] MEDS ORDERED: SODIUM CHLORIDE 0.9% 100 ML BAG ONE (06:45)
[2020-03-31 08:55] LABS: ABG Base Excess 0.3 mmol/L; ABG Glucose Whole Blood 104 mg/dL (75-99); ABG HCO3 25 mmol/L (21-25); ABG Hematocrit 39 % (34.0-46.0); ABG Ionized Calcium 4.6 mg/dL (4.5-5.3); ABG Oxygen Saturation 99.3 % (94-97); ABG PCO2 38 mmHg (35-45); ABG PH 7.42 (7.35-7.45); ABG PO2 149 mmHg (83-108); ABG Potassium Whole Blood 4.2 mmol/L (3.4-4.5); ABG Sodium Whole Blood 140 mmol/L (135-146); ABG TCO2 26 mmol/L (19-24)
[2020-03-31 11:07] LABS: ABG Glucose Whole Blood 116 mg/dL (75-99); ABG HCO3 25 mmol/L (21-25); ABG Hematocrit 39 % (34.0-46.0); ABG Ionized Calcium 4.6 mg/dL (4.5-5.3); ABG Lactic Acid Whole Blood 0.8 mmol/L (0.5-1.6); ABG Oxygen Saturation 99.7 % (94-97); ABG PCO2 40 mmHg (35-45); ABG PO2 220 mmHg (83-108); ABG Potassium Whole Blood 4.5 mmol/L (3.4-4.5); ABG Sodium Whole Blood 140 mmol/L (135-146); ABG TCO2 26 mmol/L (19-24)
[2020-03-31 11:46] LABS: ABG Base Excess -0.5 mmol/L; ABG Glucose Whole Blood 180 mg/dL (75-99); ABG HCO3 25 mmol/L (21-25); ABG Hematocrit 29 % (34.0-46.0); ABG Ionized Calcium 4.1 mg/dL (4.5-5.3); ABG Lactic Acid Whole Blood 1.1 mmol/L (0.5-1.6); ABG Oxygen Saturation 99.8 % (94-97); ABG PCO2 42 mmHg (35-45); ABG PH 7.38 (7.35-7.45); ABG PO2 231 mmHg (83-108); ABG Potassium Whole Blood 5.5 mmol/L (3.4-4.5); ABG Sodium Whole Blood 134 mmol/L (135-146); ABG TCO2 26 mmol/L (19-24)
--- NOTE | 2020-03-31 12:05 | P.ANPRN ---
Procedure Note - Anesthesia - Invasive Line Right Central Line Time Out Performed: Yes ([id number]) Date of Procedure: 03/31/20 Time of Procedure: 07:28 Location of Patient: Phase I Preparation: Sterile Prep Arterial Line Location: Radial (L) Ultrasound Used: Yes Purpose - Visualization and Identification of Vasculature: Yes Needle Guage: 18 angio Image Stored and Saved: Yes Narrative: Central line placement per sterile protocol utilized. +local +angio +cvp +jwire +uneventful dilation and introduction right iJ cordis Right [place] Pati Time Out Performed: Yes ([id number]) Date of Procedure: 03/31/20 Time of Procedure: 07:41 Location of Patient: Phase I Preparation: Sterile Prep Arterial Line Location: Radial (l) Ultrasound Used: Yes Purpose - Visualization and Identification of Vasculature: Yes Image Stored and Saved: No Narrative: Central line placement per sterile protocol utilized. [place] floated within sheath with sterile conditions to PA 55cm. W/d to 50cm.
[2020-03-31 12:25] LABS: ABG Base Excess -1.1 mmol/L; ABG Glucose Whole Blood 157 mg/dL (75-99); ABG HCO3 25 mmol/L (21-25); ABG Hematocrit 29 % (34.0-46.0); ABG Ionized Calcium 4.3 mg/dL (4.5-5.3); ABG Lactic Acid Whole Blood 1.7 mmol/L (0.5-1.6); ABG Oxygen Saturation 99.9 % (94-97); ABG PCO2 44 mmHg (35-45); ABG PH 7.35 (7.35-7.45); ABG PO2 330 mmHg (83-108); ABG Potassium Whole Blood 5.4 mmol/L (3.4-4.5); ABG Sodium Whole Blood 135 mmol/L (135-146); ABG TCO2 26 mmol/L (19-24)
[2020-03-31 12:57] LABS: ABG Base Excess -2.1 mmol/L; ABG Glucose Whole Blood 171 mg/dL (75-99); ABG HCO3 24 mmol/L (21-25); ABG Hematocrit 28 % (34.0-46.0); ABG Ionized Calcium 4.3 mg/dL (4.5-5.3); ABG Oxygen Saturation 99.9 % (94-97); ABG PCO2 46 mmHg (35-45); ABG PH 7.33 (7.35-7.45); ABG PO2 326 mmHg (83-108); ABG Sodium Whole Blood 135 mmol/L (135-146); ABG TCO2 25 mmol/L (19-24)
[2020-03-31 13:53] LABS: ABG Base Excess -2.4 mmol/L; ABG Glucose Whole Blood 144 mg/dL (75-99); ABG HCO3 23 mmol/L (21-25); ABG Hematocrit 29 % (34.0-46.0); ABG Ionized Calcium 4.4 mg/dL (4.5-5.3); ABG Lactic Acid Whole Blood 1.9 mmol/L (0.5-1.6); ABG Oxygen Saturation 99.6 % (94-97); ABG PCO2 39 mmHg (35-45); ABG PH 7.38 (7.35-7.45); ABG PO2 192 mmHg (83-108); ABG Potassium Whole Blood 4.1 mmol/L (3.4-4.5); ABG Sodium Whole Blood 138 mmol/L (135-146); ABG TCO2 24 mmol/L (19-24)
[2020-03-31 14:05] LABS: ABG Lactic Acid Whole Blood 2.1 mmol/L (0.5-1.6)
[2020-03-31] MEDS ORDERED: BENZOCAINE/MENTHOL LOZENG 1 EACH LOZENGE MUCOUS MEM PRN (14:49)
[2020-03-31] MEDS ORDERED: Phosphorus Replacement Protoco 1 EACH MISC MISCELLANE PRN (14:49)
[2020-03-31] MEDS ORDERED: NITROGLYCERIN-D5W PMX 50 MG in DEXTROSE/WATER 1 250ML.BAG IV SCH (14:49)
[2020-03-31] MEDS ORDERED: METOCLOPRAMIDE 5 MG/ML 2 ML VIAL IVP PRN (14:49)
[2020-03-31] MEDS ORDERED: AMIODARONE 360 MG in DEXTROSE 5% IN WATER 200 ML IV PRN ×2 (14:49)
[2020-03-31] MEDS ORDERED: CALCIUM GLUCONATE 2 GM in SODIUM CHLORIDE 0.9% 100 ML IVPB PRN (14:49)
[2020-03-31] MEDS ORDERED: INSULIN REGULAR 100 UNIT in SODIUM CHLORIDE 0.9% 100 ML IV SCH (14:49)
[2020-03-31] MEDS ORDERED: AMIODARONE 300 MG in DEXTROSE 5% IN WATER 250 ML IV PRN ×2 (14:49)
[2020-03-31] MEDS ORDERED: hydrALAZINE HCL 20 MG/ML 1 ML VIAL IVP PRN (14:49)
[2020-03-31] MEDS ORDERED: DEXMEDETOMIDINE/0.9% NACL(PMX) 400 MCG in EMPTY BAG 1 BAG IV SCH (14:49)
[2020-03-31] MEDS ORDERED: IPRATROPIUM-ALBUTEROL 3 ML NEB INHALATION PRN (14:49)
[2020-03-31] MEDS ORDERED: ALBUMIN HUMAN 5% 250 ML in EMPTY BAG 1 BAG IVPB PRN (14:49)
[2020-03-31] MEDS ORDERED: Potassium Replacement Protocol 1 EACH MISC MISCELLANE PRN (14:49)
[2020-03-31] MEDS ORDERED: Magnesium Replacement Protocol 1 EACH MISC MISCELLANE PRN (14:49)
[2020-03-31 15:12] LABS: Glucose,Whole Blood 101 mg/dL (75-99)
[2020-03-31 15:26] LABS: ABG Base Excess 0.8 mmol/L; ABG HCO3 26 mmol/L (21-25); ABG Oxygen Saturation 99.6 % (94-97); ABG PCO2 43 mmHg (35-45); ABG PH 7.39 (7.35-7.45); ABG PO2 313 mmHg (83-108); ABG TCO2 27 mmol/L (19-24)
[2020-03-31 15:28] LABS: Allen Test Performed? no
[2020-03-31 15:41] LABS: Basophils % (A) 0 %; Eosinophils # (A) 0.3 k/uL (0-0.7); Eosinophils % (A) 3 %; HCT 30.7 % (39.0-53.0); Lymphocytes % (A) 9 %; MCH 30.2 pg (25.0-35.0); MCHC 33.3 g/dL (31.0-37.0); MCV 90.7 fL (80.0-100.0); Mean Platelet Volume 8.1; Monocytes # (A) 0.6 k/uL (0-1.0); Monocytes % (A) 5 %; Neutrophils # (A) 9.5 k/uL (1.3-7.7); Neutrophils % (A) 82 %; Platelet Count 104 k/uL (150-450); RBC 3.39 m/uL (4.30-5.90); RDW 13.2 % (11.5-15.5); WBC 11.6 k/uL (3.8-10.6)
[2020-03-31 15:44] LABS: HGB 10.2 gm/dL (13.0-17.5)
[2020-03-31 15:49] LABS: INR 1.3 (<1.2); Partial Thromboplastin Time 30.8 sec (22.0-30.0); Prothrombin Time 12.8 sec (9.0-12.0)
[2020-03-31 15:50] LABS: Ionized Calcium 4.6 mg/dL (4.5-5.3)
[2020-03-31] MEDS ORDERED: IPRATROPIUM-ALBUTEROL 3 ML NEB INHALATION SCH (16:00)
[2020-03-31 16:03] LABS: ALT 15 U/L (4-49); AST 39 U/L (17-59); African American GFR (CKD) >90 (>60 ml/min/1.73 sqM); Albumin 3.2 g/dL (3.5-5.0); Alkaline Phosphatase 46 U/L (38-126); Anion Gap 5 mmol/L; Blood Urea Nitrogen 17 mg/dL (9-20); Calcium 7.6 mg/dL (8.4-10.2); Carbon Dioxide 25 mmol/L (22-30); Chloride 107 mmol/L (98-107); Glucose 98 mg/dL (74-99); Non-African American GFR(CKD) >90 (>60 ml/min/1.73 sqM); Potassium 4.2 mmol/L (3.5-5.1); Sodium 137 mmol/L (137-145); Total Bilirubin 0.8 mg/dL (0.2-1.3)
[2020-03-31] MEDS: CLEVIDIPINE BUTYRATE 25 MG in EMPTY BAG 1 BAG IV SCH ×2 (16:05→18:24)
[2020-03-31] MEDS: LACTATED RINGERS 1,000 ML IV SCH (16:05)
--- NOTE | 2020-03-31 16:06 | XR ---
EXAMINATION TYPE: XR chest 1V portable DATE OF EXAM: 03/31/2020 Comparison: 03/21/2020 Clinical History: 74-year-old male Post Operative Cardiac Surgery Findings: ET tube tip at the level of the medial clavicular heads. NG tube courses below the diaphragm. Epicard ial pacer leads. Right IJ [place]-Pati catheter tip at the main pulmonary outflow tract. Patient is rota spencer towards the right. Mediastinal drains are present. Left-sided chest tube. No appreciable pneumoth orax. Small effusions with patchy bibasilar opacity and more dense retrocardiac opacity. Median horner otomy wires post-CABG clips in the mediastinum. Impression: 1. ET tube tip is just below the thoracic inlet level. Consider slight advancement. 2. Small effusions with patchy bibasilar atelectasis. More dense retrocardiac opacity, likely additio nal postoperative atelectasis.
[2020-03-31 16:23] LABS: Glucose,Whole Blood 100 mg/dL (75-99)
[2020-03-31 17:24] LABS: Glucose,Whole Blood 122 mg/dL (75-99)
[2020-03-31] MEDS: KETOROLAC 15 MG/ML 1 ML VIAL IVP SCH (17:58)
[2020-03-31] MEDS ORDERED: ACETAMINOPHEN IV (For NPO) 1,000 MG in EMPTY BAG 1 BAG IVPB SCH (18:00)
--- NOTE | 2020-03-31 18:19 | P.CRDCN ---
History of Present Illness Consult date: 03/31/20 Reason for Consult (text): Coronary artery disease status post CABG Chief complaint: Status post CABG History of present illness: HISTORY OF PRESENTING ILLNESS This is a pleasant 74-year-old male past medical history significant for coronary artery disease with multivessel coronary artery disease, 99% mid LAD stenosis, 70% proximal OM1, 99% distal RCA and 99% mid PDA identified on heart catheterization 03/21/2020, preserved ejection fraction 55% on echo 03/13/2020, hyperlipidemia. He follows in the office with Dr. Asif in the office. We have been asked to see in consultation for cardiac care status post CABG. Patient is currently intubated status post bypass and only minimally responsive on ventilator. Per documentation patient had a MATTHEWS to LAD, SVG to diagonal, SVG to RCA and SVG to PDA performed. Blood pressures been stable with systolics in the 120s to 140s and pulmonary arterial pressures have been approximately 40/20. Per ICU staff, there was concern of dynamic EKG changes inferiorly and patient was placed on a nitroglycerin drip. Patient is on ventilator and oxygenating well on mechanical ventilation. DIAGNOSTICS Telemetry reveals normal sinus rhythm Chest xray ET tube slightly withdrawn, small effusions with patchy bibasilar atelectasis, chest tube in place, right IJ [place]-Pati catheter in place.. Laboratory reviewed, white blood cell count 11.6, hemoglobin 10.2, platelet count 104, PT 12.8, INR 1.3, PTT 30.8, creatinine 0.71. Current cardiac medications include aspirin 325 mg by mouth daily, Lipitor 40 mg daily, amiodarone drip, clevidipine drip, Plavix, heparin 5000 units subcu taneously, hydralazine when necessary, Lopressor 12.5 mg twice a day, nitroglycerin drip. REVIEW OF SYSTEMS At the time of my exam: Unable to obtain review of systems secondary to patient being intubated and sedated. PHYSICAL EXAMINATION Blood pressure 148/86 heart rate 71 afebrile and maintaining oxygen saturation on 97% on mechanical ventilation. CONSTITUTIONAL: No apparent distress, intubated and sedated, not responsive to verbal stimuli HEENT: Head is normocephalic. Pupils are equal, round. Sclerae anicteric. Mucous membranes of the mouth are moist. + Endotracheal tube, No JVD. No carotid bruit. CHEST EXAMINATION: Coarse breath sounds bilaterally, hourly diminished at bases, + chest tube bilaterally and sternotomy incision HEART EXAMINATION: Regular rate and rhythm. S1, S2 heard. No murmurs, gallops or rub. ABDOMEN: Soft, nontender. Positive bowel sounds. EXTREMITIES: 2+ peripheral pulses, no lower extremity edema and no calf tenderness. NEUROLOGIC EXAMINATION: Patient is sedated and intubated not responding to verbal stimuli ASSESSMENT 1. Coronary artery disease status post CABG postop day #0 with MATTHEWS to LAD, SVG to diagonal, SVG to RCA and SVG to PDA 2. Essential hypertension on home Imdur and Lopressor 3. Hyperlipidemia 4. Anemia and thrombocytopenia, likely related to surgery PLAN Patient is status post CABG this morning and remains intubated. Hopefully weaning and extubation per ICU team. Continue clevidipine drip, nitroglycerin drip and pain control to help control blood pressure. Continue supportive care and weaning as tolerated. Continue aspirin and Plavix. Continue Lopressor and nitrates as patient's blood pressure tolerates. Thank you for allowing us to participate in the care of this patient. Past Medical History Past Medical History: Coronary Artery Disease (CAD), Cancer, Chest Pain / Angina, Hyperlipidemia, Prostate Disorder, Thyroid Disorder Additional Past Medical History / Comment(s): SKIN CANCER, had some abnormal kidney function labs in the past but no recent problems per pt. History of Any Multi-Drug Resistant Organisms: None Reported Past Surgical History: Heart Catheterization, Hernia Repair Past Anesthesia/Blood Transfusion Reactions: No Reported Reaction Smoking Status: Never smoker - Past Family History Mother Family Medical History: Congestive Heart Failure (CHF) Father Family Medical History: Coronary Artery Disease (CAD), Myocardial Infarction (DC) Additional Family Medical History / Comment(s): Father at 48 years old from myocardial infarction Medications and Allergies Home Medications Medication Instructions Recorded Confirmed Type Alfuzosin HCl [Uroxatral] 10 mg PO HS 07/13/18 03/31/20 History Aspirin EC [Ecotrin Low Dose] 81 mg PO DAILY 07/13/18 03/31/20 History Fish Oil/Dha/Epa [Fish Oil 1,200 1 cap PO HS 07/13/18 03/31/20 History mg Fish Oil] Multivitamins, Thera [Multivitamin 1 tab PO DAILY 07/13/18 03/31/20 History (formulary)] Levothyroxine Sodium [Synthroid] 125 mcg PO DAILY 01/15/19 03/31/20 History Fesoterodine Fumarate [Toviaz] 4 mg PO DAILY 03/18/20 03/31/20 History Rosuvastatin Calcium [Crestor] 5 mg PO DAILY 03/18/20 03/31/20 History Isosorbide Mononitrate ER [Imdur] 30 mg PO DAILY #30 tab.er.24h 03/22/20 03/31/20 Rx Nitroglycerin Sl Tabs [Nitrostat] 0.4 mg SUBLINGUAL Q5M PRN #25 tab 03/22/20 03/31/20 Rx Metoprolol Tartrate [Lopressor] 25 mg PO BID 03/25/20 03/31/20 History Mupirocin 2% Oint [Bactroban 2% 1 applic NASAL BID 03/25/20 03/31/20 History Oint] Allergies Allergy/AdvReac Type Severity Reaction Status Date / Time acetaminophen [From Tylenol] AdvReac Mild CONGESTION Verified 03/31/20 05:55 Physical Exam Vitals: Vital Signs Temp Pulse Pulse Resp BP BP Pulse Ox 03/31/20 17:00 78 12 143/75 96 03/31/20 16:50 76 12 132/71 97 03/31/20 16:40 75 12 129/71 96 03/31/20 16:30 73 12 135/71 96 03/31/20 16:20 71 12 148/86 97 03/31/20 16:10 74 12 139/78 99 03/31/20 16:00 68 12 137/77 100 03/31/20 15:51 67 03/31/20 15:50 67 12 132/75 100 03/31/20 15:40 67 12 124/68 99 03/31/20 15:31 67 03/31/20 15:30 66 12 118/67 99 03/31/20 15:20 66 12 100 03/31/20 15:10 66 10 L 99 03/31/20 15:00 75 12 100 03/31/20 06:17 98 F 58 L 16 131/77 95 Intake and Output 03/31/20 03/31/20 03/31/20 06:59 14:59 22:59 Intake Total 32 242.972 Output Total 1750 1370 Balance -1718 -1638.132 Intake: IV 32 234.5 Lactated Ringers 1,000 ml 150 @ 50 mls/hr IV .Q20H [facility] Rx#:[id number] Nitroglycerin-D5w Pmx 50 7.5 mg In Dextrose/Water 1 250ml.bag @ Per Protocol IV ONCE ONE Rx#:[id number] Pressure Bag 27 ceFAZolin 2 gm In Sodium 50 Chloride 0.9% 50 ml @ 100 mls/hr IVPB Q8HR [facility] Rx# :[id number] Intake, IV Titration 8.472 Amount propofoL 1,000 mg In 8.472 Empty Bag 1 bag @ Titrate IV .Q0M [facility] Rx#: [id number] Output: Chest Tube Drainage 235 Chest Tube Left Pleural/ 235 Mediastinal Urine 750 1135 Estimated Blood Loss 1000 Other: Voiding Method Indwelling Catheter Weight 84.3 kg ABP, PAP, CO, CI - Last 8 Hours Arterial Blood Pressure 140/68 Arterial Blood Pressure 129/62 Arterial Blood Pressure 126/60 Pulmonary Artery Pressure 40/19 Pulmonary Artery Pressure 40/19 Pulmonary Artery Pressure 38/16 Pulmonary Artery Pressure 39/17 Pulmonary Artery Pressure 41/20 Pulmonary Artery Pressure 39/18 Pulmonary Artery Pressure 39/24 Pulmonary Artery Pressure 39/24 Pulmonary Artery Pressure 39/23 Pulmonary Artery Pressure 39/22 Pulmonary Artery Pressure 38/23 Pulmonary Artery Pressure 38/21 Pulmonary Artery Pressure 37/19 Cardiac Output 6.5 Cardiac Output 5.7 Cardiac Output 4.4 Cardiac Output 4.4 Cardiac Output 5.7 Cardiac Output 4.4 Cardiac Output 5.1 Cardiac Index 3.2 Cardiac Index 2.8 Cardiac Index 2.1 Cardiac Index 2.1 Cardiac Index 2.8 Cardiac Index 2.1 Cardiac Index 2.5 Results 03/31/20 15:15 03/31/20 15:15 Cardiac Enzymes 03/31/20 Range/Units 15:15 AST 39 (17-59) U/L Coagulation 03/31/20 Range/Units 15:15 PT 12.8 H (9.0-12.0) sec APTT 30.8 H (22.0-30.0) sec CBC 03/31/20 Range/Units 15:15 WBC 11.6 H (3.8-10.6) k/uL RBC 3.39 L (4.30-5.90) m/uL Hgb 10.2 L D (13.0-17.5) gm/dL Hct 30.7 L (39.0-53.0) % Plt Count 104 L (150-450) k/uL Comprehensive Metabolic Panel 03/31/20 Range/Units 15:15 Sodium 137 (137-145) mmol/L Potassium 4.2 (3.5-5.1) mmol/L Chloride 107 (98-107) mmol/L Carbon Dioxide 25 (22-30) mmol/L BUN 17 (9-20) mg/dL Creatinine 0.71 (0.66-1.25) mg/dL Glucose 98 (74-99) mg/dL Calcium 7.6 L (8.4-10.2) mg/dL AST 39 (17-59) U/L ALT 15 (4-49) U/L Alkaline Phosphatase 46 (38-126) U/L Total Protein 5.0 L (6.3-8.2) g/dL Albumin 3.2 L (3.5-5.0) g/dL Current Medications Generic Name Dose Route Start Last Admin Trade Name Freq PRN Reason Stop Dose Admin Albuterol/Ipratropium 3 ml 03/31/20 14:49 Duoneb 0.5 Mg-3 Mg/3 Ml Soln INHALATION RT-Q2H PRN Shortness Of Breath Or Wheezing Albuterol/Ipratropium 3 ml 03/31/20 16:00 03/31/20 15:30 Duoneb 0.5 Mg-3 Mg/3 Ml Soln INHALATION 03/31/20 18:37 3 ml RT-Q4H JOSE Administration Albuterol/Ipratropium 3 ml 03/31/20 18:37 Duoneb 0.5 Mg-3 Mg/3 Ml Soln INHALATION RT-QID [facility] Aspirin 325 mg 04/01/20 09:00 Aspirin PO DAILY [facility] Atorvastatin Calcium 40 mg 04/01/20 09:00 Lipitor PO DAILY [facility] Benzocaine/Menthol 1 each 03/31/20 14:49 Cepacol Lozenge MUCOUS MEM Q2H PRN Sore Throat Bisacodyl 10 mg 04/01/20 09:00 Dulcolax RECTAL DAILY PRN Constipation Chlorhexidine Gluconate 15 ml 03/31/20 21:00 Peridex MUCOUS MEM BID [facility] Clopidogrel Bisulfate 75 mg 04/01/20 09:00 Plavix PO DAILY JOSE Heparin Sodium (Porcine) 5,000 unit 03/31/20 21:00 Heparin SQ Q8HR [facility] Hydralazine HCl 10 mg 03/31/20 14:49 Apresoline IVP Q1H PRN Blood Pressure - High Clevidipine 25 mg/ IV Solution 50 mls @ 2 mls/hr 03/31/20 14:49 03/31/20 16:05 IV Not Given .Q24H JOSE Protocol 1 MG/HR Nitroglycerin/Dextrose 50 mg/ 250 mls @ 1.5 mls/hr 03/31/20 14:49 03/31/20 16:06 IV Solution IV 10 mcg/min .Q24H JOSE 3 mls/hr Administration 5 MCG/MIN Amiodarone HCl 150 mg/ 103 mls @ 618 mls/hr 03/31/20 14:49 Dextrose/Water IV .Q10M PRN A.FIB/FLUTTER Protocol Amiodarone HCl 360 mg/ 200 mls @ 33.333 mls/hr 03/31/20 14:49 Dextrose/Water IV .Q6H PRN A.FIB/FLUTTER Protocol 1 MG/MIN Amiodarone HCl 300 mg/ 250 mls @ 25 mls/hr 03/31/20 14:49 Dextrose/Water IV .Q10H PRN A.FIB/FLUTTER Protocol 0.5 MG/MIN Albumin Human 250 ml/ IV 250 mls @ 250 mls/hr 03/31/20 14:49 Solution IVPB 04/02/20 14:50 Q1HR PRN For Volume Lactated Ringer's 1,000 mls @ 50 mls/hr 03/31/20 14:49 03/31/20 16:05 Lactated Ringers IV 50 mls/hr .Q20H JOSE Administration Propofol 1,000 mg/ IV Solution 100 mls @ 0 mls/hr 03/31/20 14:49 03/31/20 17:39 IV 0 mcg/kg/min .Q0M JOSE 0 mls/hr Titration Protocol Titrate Dexmedetomidine HCl 400 mcg/ 100 mls @ 0 mls/hr 03/31/20 14:49 IV Solution IV 04/01/20 14:49 .Q0M JOSE Protocol Titrate Cefazolin Sodium 2 gm/ Sodium 50 mls @ 100 mls/hr 03/31/20 16:00 03/31/20 16:09 Chloride IVPB 04/01/20 08:29 100 mls/hr Q8HR [facility] Administration Calcium Gluconate 2 gm/ Sodium 120 mls @ 100 mls/hr 03/31/20 14:49 Chloride IVPB 04/04/20 14:50 ONCE PRN Ionized Calcium less than 4.4 Insulin Human Regular 100 unit 101 mls @ 0 mls/hr 03/31/20 14:49 / Sodium Chloride IV .Q0M [facility] Protocol Per Protocol Ketorolac Tromethamine 15 mg 03/31/20 18:00 03/31/20 17:58 Toradol IVP 04/03/20 16:10 15 mg Q6HR [facility] Administration Levothyroxine Sodium 125 mcg 04/01/20 06:30 [place] 0630 [facility] Magnesium Hydroxide 2,400 mg 04/01/20 09:00 Milk Of Magnesia PO BID PRN Constipation Metoclopramide HCl 10 mg 03/31/20 14:49 Reglan IVP Q4H PRN Nausea And Vomiting Metoprolol Tartrate 12.5 mg 04/01/20 09:00 Lopressor PO BID [facility] Miscellaneous Information 1 each 03/31/20 14:49 Magnesium Per Protocol MISCELLANE DAILY PRN Per Protocol Protocol Miscellaneous Information 1 each 03/31/20 14:49 Phosphorus Per Protocol MISCELLANE DAILY PRN Per Protocol Protocol Miscellaneous Information 1 each 03/31/20 14:49 Potassium Per Protocol MISCELLANE DAILY PRN Per Protocol Protocol Multivitamins 1 each 04/01/20 09:00 Theragran PO DAILY [facility] Mupirocin 1 applic 03/31/20 21:00 Bactroban Oint NASAL BID [facility] Ondansetron HCl 4 mg 03/31/20 14:49 Zofran IVP Q6HR PRN Nausea And Vomiting Oxycodone HCl 10 mg 03/31/20 14:49 Oxyir PO 04/01/20 00:36 Q4H PRN Severe Pain Oxycodone HCl 5 mg 03/31/20 14:49 Oxyir PO 04/01/20 00:36 Q4H PRN Moderate Pain Pantoprazole Sodium 40 mg 04/01/20 09:00 Protonix IVP DAILY [facility] Senna/Docusate Sodium 2 each 04/01/20 21:00 Senokot-S PO HS [facility] Sodium Chloride 10 ml 03/31/20 21:00 Saline Flush IV BID JOSE Tamsulosin HCl 0.4 mg 03/31/20 21:00 Flomax PO HS JOSE Trospium 20 mg 04/01/20 09:00 [place] PO DAILY JOSE Intake and Output 03/31/20 03/31/20 03/31/20 06:59 14:59 22:59 Intake Total 32 242.972 Output Total 1750 1370 Balance -1718 -1127.028 Intake: IV 32 234.5 Lactated Ringers 1,000 ml 150 @ 50 mls/hr IV .Q20H [facility] Rx#:[id number] Nitroglycerin-D5w Pmx 50 7.5 mg In Dextrose/Water 1 250ml.bag @ Per Protocol IV ONCE ONE Rx#:[id number] Pressure Bag 27 ceFAZolin 2 gm In Sodium 50 Chloride 0.9% 50 ml @ 100 mls/hr IVPB Q8HR [facility] Rx# :[id number] Intake, IV Titration 8.472 Amount propofoL 1,000 mg In 8.472 Empty Bag 1 bag @ Titrate IV .Q0M [facility] Rx#: [id number] Output: Chest Tube Drainage 235 Chest Tube Left Pleural/ 235 Mediastinal Urine 750 1135 Estimated Blood Loss 1000 Other: Voiding Method Indwelling Catheter Weight 84.3 kg 03/31/20 15:15 03/31/20 15:15
[2020-03-31 18:25] LABS: Glucose,Whole Blood 139 mg/dL (75-99)
[2020-03-31 18:48] LABS: Basophils % (A) 0 %; Eosinophils # (A) 0.1 k/uL (0-0.7); Eosinophils % (A) 1 %; HCT 33.9 % (39.0-53.0); HGB 11.1 gm/dL (13.0-17.5); Lymphocytes # (A) 1.1 k/uL (1.0-4.8); Lymphocytes % (A) 6 %; MCH 29.6 pg (25.0-35.0); MCHC 32.7 g/dL (31.0-37.0); MCV 90.4 fL (80.0-100.0); Mean Platelet Volume 8.5; Monocytes # (A) 0.9 k/uL (0-1.0); Monocytes % (A) 5 %; Neutrophils # (A) 14.7 k/uL (1.3-7.7); Neutrophils % (A) 86 %; Platelet Count 146 k/uL (150-450); RBC 3.75 m/uL (4.30-5.90); RDW 13.2 % (11.5-15.5); WBC 17.1 k/uL (3.8-10.6)
[2020-03-31 18:50] LABS: Glucose,Whole Blood 146 mg/dL (75-99)
[2020-03-31] MEDS: IPRATROPIUM-ALBUTEROL 3 ML NEB INHALATION SCH ×2 (19:05→19:55)
[2020-03-31 20:08] LABS: Glucose,Whole Blood 140 mg/dL (75-99)
[2020-03-31] MEDS: HEPARIN SODIUM,PORCINE 5,000 UNIT/ML 1 ML VIAL SQ SCH (20:26)
[2020-03-31] MEDS: TAMSULOSIN 0.4 MG CAP.ER.24H PO SCH (20:28)
[2020-03-31 20:50] LABS: ABG Base Excess 0.5 mmol/L; ABG HCO3 26 mmol/L (21-25); ABG Oxygen Saturation 98.9 % (94-97); ABG PCO2 47 mmHg (35-45); ABG PH 7.35 (7.35-7.45); ABG PO2 144 mmHg (83-108); ABG TCO2 28 mmol/L (19-24)
[2020-03-31 20:52] LABS: Allen Test Performed? no
[2020-03-31] MEDS ORDERED: CHLORHEXIDINE GLUCONATE 15 ML CUP MUCOUS MEM SCH (21:00)
[2020-03-31] MEDS: MUPIROCIN 2% OINT 22 GM TUBE NASAL SCH (21:08)
[2020-03-31 21:20] LABS: Glucose,Whole Blood 117 mg/dL (75-99)
[2020-03-31 21:32] LABS: Basophils % (A) 0 %; Eosinophils % (A) 0 %; HCT 33.8 % (39.0-53.0); HGB 11.1 gm/dL (13.0-17.5); Lymphocytes # (A) 0.7 k/uL (1.0-4.8); Lymphocytes % (A) 5 %; MCH 29.6 pg (25.0-35.0); MCHC 32.7 g/dL (31.0-37.0); MCV 90.6 fL (80.0-100.0); Mean Platelet Volume 9.1; Monocytes # (A) 0.7 k/uL (0-1.0); Monocytes % (A) 5 %; Neutrophils # (A) 12.9 k/uL (1.3-7.7); Neutrophils % (A) 89 %; Platelet Count 126 k/uL (150-450); RBC 3.74 m/uL (4.30-5.90); RDW 13.2 % (11.5-15.5); WBC 14.4 k/uL (3.8-10.6)
[2020-03-31 22:21] LABS: Glucose,Whole Blood 115 mg/dL (75-99)
[2020-03-31 23:01] LABS: Glucose,Whole Blood 114 mg/dL (75-99)
[2020-04-01 00:01] LABS: Glucose,Whole Blood 123 mg/dL (75-99)
[2020-04-01] MEDS: KETOROLAC 15 MG/ML 1 ML VIAL IVP SCH ×5 (00:04→23:40)
[2020-04-01] MEDS ORDERED: HYDROcodone/APAP 5-325MG 1 EACH TAB PO PRN ×2 (00:36)
[2020-04-01 01:00] LABS: Glucose,Whole Blood 123 mg/dL (75-99)
--- NOTE | 2020-04-01 01:26 | OP ---
OPERATIVE REPORT DATE OF THE OPERATION: 03/31/2020 ATTENDING SURGEON: Dr. Mihai Dodd. ASSISTANTS: Effie Perla and Hardik Tatum NP. PREOPERATIVE DIAGNOSIS: Unstable angina. Three vessel coronary artery disease. POSTOPERATIVE DIAGNOSIS: Unstable angina. Three vessel coronary artery disease. PROCEDURE: Coronary artery bypass grafting x4 with left internal mammary artery to left anterior descending artery, reverse saphenous vein grafts off the aorta to the diagonal artery. The right coronary artery and the posterior descending artery with right greater saphenous vein endoscopic vein harvesting, clip ligation of the left atrial appendage with a 35 mm AtriClip and intraoperative FRANCISCO. ANESTHESIA: General. BLOOD LOSS: 500 mL. SUMMARY: The patient was taken the operating room and placed in supine position. Following administration of general endotracheal anesthetic, placement of a [place]-Pati catheter arterial line, adequate IV access, Marrero catheter, the patient was carefully prepped and draped in normal sterile fashion using chlorhexidine paint and sterile towels. Greater saphenous vein was harvested from the right lower extremity with endovascular vein harvesting technique. All branches were doubly tied and divided and the incisions closed in 2 layers. A midline incision in the chest was made and sternum divided. Pericardium was opened. Heart size was normal caliber. The aorta was soft. Left pleural space was then opened. Left internal mammary artery harvested as a pedicle from the xiphoid to the left subclavian vein. It was of 2 mm quality with excellent flow. The patient was heparinized and ACT of greater than 480. The aorta and vena cava were cannulated. Antegrade and retrograde cardioplegic catheters positioned in the ascending aorta and the coronary sinus. The patient was placed on bypass, cross- clamp placed, heart arrested with 1 L of antegrade followed by 500 mL retrograde cardioplegia. Retrograde cardioplegia was delivered 300 to 500 mL at the end of each 20- minute intervals. First the base of the left atrial appendage was measured and a 35 mm AtriClip was secured at the base officially obliterating the left atrial appendage. Distal anastomoses were constructed. Reverse saphenous vein graft anastomosis to a diffusely diseased posterior descending artery constructed using 7-0 Prolene running suture. Caliber of this vessel was 1.25 to 1.5 mm. Next saphenous vein anastomosis to the distal right coronary artery was constructed in a similar fashion. This is a 1.5 mm vessel. Next, saphenous vein graft anastomosis to the diagonal artery was constructed in a similar fashion. This is a 1.5 mm vessel. The last left internal mammary was beveled distal anastomosis to the left anterior descending artery constructed using an 8-0 Prolene running suture. Caliber of this vessel was 1.5 to 1.75 mm. Under single cross-clamp, 3 proximal anastomoses were constructed in the ascending aorta using 6-0 Prolene running suture. The patient was placed head down. The aortic root was vented. One liter of warm blood retrograde cardioplegia was run. Cross-clamp was removed. The vein grafts de-aired. Once beating normal sinus rhythm, the patient was brought off bypass, came off bypass uneventfully with good hemodynamics. Protamine delivered. Patient decannulated. Atrial ventricular pacing wires were placed. Mediastinal left pleural chest tubes were placed. At this point, the sternum was closed with four #6 sternal wires and 2 [id number] Lackey sternal cable closure devices. Skin, subcutaneous tissue, fascia closed in 3 layers. No complications. The patient tolerated procedure well, was taken to the cardiovascular intensive care unit in stable condition. Please make note postoperative FRANCISCO showed excellent left ventricular function. MMODL / IJN: [id number] /
[2020-04-01 01:59] LABS: Glucose,Whole Blood 115 mg/dL (75-99)
[2020-04-01 03:02] LABS: Glucose,Whole Blood 117 mg/dL (75-99)
[2020-04-01] MEDS: ONDANSETRON 4 MG/2 ML VIAL IVP PRN ×2 (03:18→09:35)
[2020-04-01 04:00] LABS: Glucose,Whole Blood 128 mg/dL (75-99)
[2020-04-01 04:09] LABS: Basophils % (A) 0 %; Eosinophils % (A) 0 %; HGB 10.9 gm/dL (13.0-17.5); Lymphocytes # (A) 0.6 k/uL (1.0-4.8); Lymphocytes % (A) 5 %; MCH 29.7 pg (25.0-35.0); MCV 90.1 fL (80.0-100.0); Mean Platelet Volume 8.7; Monocytes # (A) 0.6 k/uL (0-1.0); Monocytes % (A) 5 %; Neutrophils # (A) 11.8 k/uL (1.3-7.7); Neutrophils % (A) 89 %; Platelet Count 130 k/uL (150-450); RBC 3.66 m/uL (4.30-5.90); RDW 13.2 % (11.5-15.5); WBC 13.2 k/uL (3.8-10.6)
[2020-04-01 04:13] LABS: Ionized Calcium 4.2 mg/dL (4.5-5.3)
[2020-04-01 04:20] LABS: ALT 21 U/L (4-49); AST 120 U/L (17-59); African American GFR (CKD) >90 (>60 ml/min/1.73 sqM); Albumin 3.3 g/dL (3.5-5.0); Alkaline Phosphatase 48 U/L (38-126); Anion Gap 8 mmol/L; Blood Urea Nitrogen 19 mg/dL (9-20); Calcium 7.5 mg/dL (8.4-10.2); Carbon Dioxide 26 mmol/L (22-30); Chloride 104 mmol/L (98-107); Glucose 119 mg/dL (74-99); Magnesium 2.5 mg/dL (1.6-2.3); Non-African American GFR(CKD) >90 (>60 ml/min/1.73 sqM); Potassium 4.2 mmol/L (3.5-5.1); Sodium 138 mmol/L (137-145); Total Bilirubin 0.6 mg/dL (0.2-1.3); Total Protein 5.2 g/dL (6.3-8.2)
[2020-04-01 05:12] LABS: Glucose,Whole Blood 126 mg/dL (75-99)
[2020-04-01] MEDS: LEVOTHYROXINE 125 MCG TAB PO SCH (06:43)
[2020-04-01] MEDS ORDERED: ACETAMINOPHEN TAB 500 MG TAB PO PRN (06:53)
[2020-04-01 07:05] LABS: Glucose,Whole Blood 127 mg/dL (75-99)
[2020-04-01 07:56] LABS: Glucose,Whole Blood 116 mg/dL (75-99)
--- NOTE | 2020-04-01 07:57 | CONS ---
CONSULTATION PULMONARY/CRITICAL CARE CONSULTATION: DATE OF SERVICE: 04/01/2020 This is a patient who is 74 years of age. He is postop day #1 status post 4-vessel bypass grafting. He was extubated about 6 hours post leaving the operating room. The patient is currently doing reasonably well. He is on O2 at 2 L by nasal cannula. He is getting insulin drip of 1.5 units an hour and nitroglycerin at 10 mcg/minute. He is getting lactated Ringer's at 50 mL an hour. The surgery was performed by Dr. Dodd. We encouraged the patient to take deep breaths, cough and clear secretions and use the incentive spirometer q.1 hour. Currently he is without complaints other than being sore. ALLERGIES: Include TYLENOL. CURRENT HOME MEDICATIONS: Apparently included Crestor, Nitrostat, Bactroban ointment, multiple vitamins, Lopressor, Synthroid, Imdur, fish oil, Toviaz, aspirin and Uroxatral. MEDICAL HISTORY: Positive for CAD, skin cancer, angina, hyperlipidemia, BPH, and hypothyroidism. SURGICAL HISTORY: Includes previous heart catheterization, hernia repair. SOCIAL HISTORY: Negative for tobacco use. No significant alcohol use or illicit drug use. FAMILY HISTORY: Positive for father with CAD and myocardial infarction. Father at an early age from an ID. REVIEW OF SYSTEMS: CONSTITUTIONAL: Negative. NEUROLOGIC: Negative. HEENT: Negative. CARDIOVASCULAR: Negative. PULMONARY: Negative. GI and : Negative. RHEUMATOLOGIC: Negative. IMMUNOLOGIC: Negative. ENDOCRINOLOGIC: Negative. DERMATOLOGIC: Negative. PHYSICAL EXAMINATION: VITAL SIGNS: Current vital signs are reviewed. Temperature is 98.7 heart rate 81, respiratory rate 13, blood pressure 127/62, mean 83, 2 L saturation 96%. Appears in no acute distress. HEENT: Examination is grossly unremarkable. Nasal O2 in place. NECK: Supple, full range of motion. No adenopathy. Neck veins are flat. CARDIOVASCULAR: Examination reveals regular rhythm and rate. S1, S2 normal. No S3, S4, or murmur. LUNGS: Clear. A few scattered rhonchi noted on deep inspiration. No wheezes or crackles. ABDOMEN: Soft. EXTREMITIES: Intact. No cyanosis, clubbing, or edema. SKIN: Without rash. NEUROLOGIC: Examination is nonfocal. LAB DATA: Reviewed. White count 13.2, hemoglobin 10.9, hematocrit 33.0, platelet count 130,000. Sodium, potassium, chloride, CO2 all normal. BUN and creatinine normal. Anion gap normal. The rest of the labs look pretty good. Microbiology is negative or pending. IMAGING: Chest x-ray shows typical postoperative changes. There is air in the stomach. The left hemidiaphragm is a bit elevated. The right lung is clear. The left lung for the most part is clear. MEDICATIONS: Medications are reviewed. ASSESSMENT: 1. Postoperative day #1, status post 4-vessel bypass grafting as well as a left atrial appendage ligation and intraoperative transesophageal echocardiogram. 2. Routine postoperative ventilator management, with extubation about 6 hours post procedure. 3. History of hypertension. 4. History of hyperlipidemia. 5. Mild postoperative anemia secondary to surgery. 6. History of coronary artery disease. 7. History of skin cancer. 8. Hypothyroidism. 9. Benign prostatic hypertrophy. PLAN: The patient seems to be doing relatively well. He was extubated right around 6 hours after leaving the operating room. Currently, he is on 2 L. He is receiving insulin drip at 1.5 units an hour, nitroglycerin drip at 10 mcg/minute. He is also on Lactated Ringer's at 50 mL an hour. Today is postop day #1. We encourage deep breathing, coughing, clearing of secretions and use of the incentive spirometer q.1 hour. We will continue with breathing treatments. Prognosis is guarded. We will continue to follow. MYLESL / LOUISN: [id number] /
[2020-04-01] MEDS ORDERED: ACETAMINOPHEN TAB 325 MG TAB PO PRN (08:03)
[2020-04-01] MEDS: IPRATROPIUM-ALBUTEROL 3 ML NEB INHALATION SCH ×4 (08:09→20:30)
[2020-04-01] MEDS: traMADol 50 MG TAB PO PRN ×3 (08:16→21:19)
[2020-04-01] MEDS: ASPIRIN 325 MG TAB PO SCH (08:17)
[2020-04-01] MEDS: CLOPIDOGREL 75 MG TAB PO SCH (08:17)
[2020-04-01] MEDS: METOPROLOL TARTRATE 12.5 MG TAB PO SCH ×2 (08:17→20:15)
[2020-04-01] MEDS: ATORVASTATIN 40 MG TAB PO SCH (08:18)
[2020-04-01] MEDS: MULTIVITAMINS, THERA 1 EACH TAB PO SCH (08:18)
[2020-04-01] MEDS: HEPARIN SODIUM,PORCINE 5,000 UNIT/ML 1 ML VIAL SQ SCH ×3 (08:19→23:41)
[2020-04-01] MEDS: TROSPIUM CHLORIDE 20 MG TABLET PO SCH (08:19)
--- NOTE | 2020-04-01 08:58 | XR ---
EXAMINATION TYPE: XR chest 1V portable DATE OF EXAM: 04/01/2020 COMPARISON: 03/31/2020 HISTORY: Postop TECHNIQUE: Single frontal view of the chest is obtained. FINDINGS: ET and NG tube have been removed. [place]-Pati catheter stable. Mediastinal and chest tubes s table. Bilateral consolidation noted with some improvement. Persistent elevation left hemidiaphragm. No overt failure. No pneumothorax. Epicardial leads.. IMPRESSION: 1. Postoperative change with basilar atelectasis favored over pneumonia
[2020-04-01] MEDS ORDERED: PANTOPRAZOLE 40 MG/10 ML VIAL IVP SCH (09:00)
[2020-04-01] MEDS ORDERED: bisacodyL 10 MG SUPP RECTAL PRN (09:00)
[2020-04-01] MEDS ORDERED: MAGNESIUM HYDROXIDE 2,400 MG/10 ML CUP PO PRN (09:00)
[2020-04-01 09:35] LABS: Glucose,Whole Blood 140 mg/dL (75-99)
--- NOTE | 2020-04-01 09:38 | P.CONS ---
History of Present Illness - History of Present Illness This is a 74 years old male with multiple medical problems including coronary artery disease, unstable angina, hyperlipidemia, hypothyroidism, Thu and cardiac cath on 03/21 showing severe triple vessel coronary artery disease Patient underwent coronary artery bypass surgery. Today is postoperative day #1. This is a status post extubation today as well. His sitting in chair comfortable not in distress Blood pressure 123/56, heart rate 80, saturating oxygen is 97% on 2 L oxygen Left showing leukocytosis of 13.2 K, rest of BMP is unremarkable sugar control. Chest x-ray showing basilar atelectasis. Patient is currently on aspirin 325 mg, also patient is on clevidsipine drip Review of Systems CONSTITUTIONAL: No fever, no malaise, no fatigue. HEENT: No recent visual problems or hearing problems. Denied any sore throat. CARDIOVASCULAR: No orthopnea, PND, no palpitations, no syncope. PULMONARY: No shortness of breath, no cough, no hemoptysis. GASTROINTESTINAL: No diarrhea, no nausea, no vomiting, no abdominal pain. Normoactive bowel sounds. NEUROLOGICAL: No headaches, no weakness, no numbness. HEMATOLOGICAL: Denies any bleeding or petechiae. GENITOURINARY: Denies any burning micturition, frequency, or urgency. MUSCULOSKELETAL/RHEUMATOLOGICAL: Denies any joint pain, swelling, or any muscle pain. ENDOCRINE: Denies any polyuria or polydipsia. Past Medical History Past Medical History: Coronary Artery Disease (CAD), Cancer, Chest Pain / Angina, Hyperlipidemia, Prostate Disorder, Thyroid Disorder Additional Past Medical History / Comment(s): SKIN CANCER, had some abnormal kidney function labs in the past but no recent problems per pt. History of Any Multi-Drug Resistant Organisms: None Reported Past Surgical History: Heart Catheterization, Hernia Repair Past Anesthesia/Blood Transfusion Reactions: No Reported Reaction Smoking Status: Never smoker - Past Family History Mother Family Medical History: Congestive Heart Failure (CHF) Father Family Medical History: Coronary Artery Disease (CAD), Myocardial Infarction (SD) Additional Family Medical History / Comment(s): Father at 48 years old from myocardial infarction Medications and Allergies Home Medications Medication Instructions Recorded Confirmed Type Alfuzosin HCl [Uroxatral] 10 mg PO HS 07/13/18 03/31/20 History Aspirin EC [Ecotrin Low Dose] 81 mg PO DAILY 07/13/18 03/31/20 History Fish Oil/Dha/Epa [Fish Oil 1,200 1 cap PO HS 07/13/18 03/31/20 History mg Fish Oil] Multivitamins, Thera [Multivitamin 1 tab PO DAILY 07/13/18 03/31/20 History (formulary)] Levothyroxine Sodium [Synthroid] 125 mcg PO DAILY 01/15/19 03/31/20 History Fesoterodine Fumarate [Toviaz] 4 mg PO DAILY 03/18/20 03/31/20 History Rosuvastatin Calcium [Crestor] 5 mg PO DAILY 03/18/20 03/31/20 History Isosorbide Mononitrate ER [Imdur] 30 mg PO DAILY #30 tab.er.24h 03/22/20 03/31/20 Rx Nitroglycerin Sl Tabs [Nitrostat] 0.4 mg SUBLINGUAL Q5M PRN #25 tab 03/22/20 03/31/20 Rx Metoprolol Tartrate [Lopressor] 25 mg PO BID 03/25/20 03/31/20 History Mupirocin 2% Oint [Bactroban 2% 1 applic NASAL BID 03/25/20 03/31/20 History Oint] Allergies Allergy/AdvReac Type Severity Reaction Status Date / Time acetaminophen [From Tylenol] AdvReac Mild CONGESTION Verified 03/31/20 05:55 Physical Exam Vitals: Vital Signs Temp Pulse Resp BP Pulse Ox 04/01/20 09:00 80 13 123/56 97 04/01/20 08:30 84 17 117/55 96 04/01/20 08:22 85 04/01/20 08:10 78 04/01/20 08:00 98.1 F 77 11 L 115/58 96 04/01/20 07:30 79 13 123/60 96 04/01/20 07:00 81 13 127/62 96 04/01/20 06:30 80 11 L 154/73 96 04/01/20 06:00 84 13 120/69 97 04/01/20 05:30 85 13 114/61 97 04/01/20 05:00 81 11 L 110/59 96 04/01/20 04:30 86 10 L 114/61 96 04/01/20 04:00 81 10 L 130/54 97 04/01/20 03:30 81 10 L 126/64 97 08/18/20 03:00 84 13 113/63 97 04/01/20 02:30 85 11 L 123/64 97 04/01/20 02:00 83 12 126/64 97 04/01/20 01:30 82 11 L 120/64 96 04/01/20 01:00 84 12 125/64 96 04/01/20 00:30 84 11 L 121/60 96 04/01/20 00:00 86 10 L 130/71 96 03/31/20 23:30 86 12 126/69 97 03/31/20 23:00 85 13 135/66 96 03/31/20 22:30 85 12 133/66 97 03/31/20 22:00 85 14 133/67 97 03/31/20 21:30 86 13 139/72 97 03/31/20 21:00 85 11 L 133/68 98 03/31/20 20:30 101 H 12 128/69 98 03/31/20 20:00 87 12 132/60 97 03/31/20 19:32 86 03/31/20 19:30 82 13 143/68 97 03/31/20 19:20 89 12 129/60 97 03/31/20 19:10 84 12 126/62 96 03/31/20 19:05 86 03/31/20 19:00 86 11 L 126/53 94 L 03/31/20 18:50 88 10 L 132/62 94 L 03/31/20 18:40 86 12 139/75 96 03/31/20 18:30 87 13 126/61 96 03/31/20 18:20 88 11 L 134/75 96 03/31/20 18:10 86 8 L 147/81 96 03/31/20 18:00 90 16 157/80 95 03/31/20 17:50 89 21 145/71 94 L 03/31/20 17:40 85 11 L 149/74 96 03/31/20 17:30 86 18 139/73 96 03/31/20 17:20 81 12 110/84 96 03/31/20 17:10 82 17 139/73 96 03/31/20 17:00 78 12 143/75 96 03/31/20 16:50 76 12 132/71 97 03/31/20 16:40 75 12 129/71 96 03/31/20 16:30 73 12 135/71 96 03/31/20 16:20 71 12 148/86 97 03/31/20 16:10 74 12 139/78 99 03/31/20 16:00 68 12 137/77 100 03/31/20 15:51 67 03/31/20 15:50 67 12 132/75 100 03/31/20 15:40 67 12 124/68 99 03/31/20 15:31 67 03/31/20 15:30 66 12 118/67 99 03/31/20 15:20 66 12 100 03/31/20 15:10 66 10 L 99 03/31/20 15:00 75 12 100 Intake and Output 03/31/20 04/01/20 04/01/20 22:59 06:59 14:59 Intake Total 647.330 912.153 460 Output Total 2330 820 150 Balance -1682.670 92.153 310 Intake: IV 634.5 906 460 Albumin 5% 250 CO/CI injectate 90 210 30 Calcium Gluconate 2 gm In 100 Sodium Chloride 0.9% 100 ml @ 100 mls/hr IVPB ONCE PRN Rx#:[id number] Lactated Ringers 1,000 ml 400 400 150 @ 20 mls/hr IV .Q24H [facility] Rx#:[id number] Nitroglycerin-D5w Pmx 50 22.5 24 3 mg In Dextrose/Water 1 250ml.bag @ Per Protocol IV ONCE ONE Rx#:[id number] Pressure Bag 72 72 27 ceFAZolin 2 gm In Sodium 50 100 Chloride 0.9% 50 ml @ 100 mls/hr IVPB Q8HR [facility] Rx# :[id number] Intake, IV Titration 12.830 6.153 Amount Clevidipine Butyrate 25 1.833 mg In Empty Bag 1 bag @ 1 MG/HR 2 mls/hr IV .Q24H [facility] Rx#:[id number] Insulin Regular 100 unit 2.525 6.153 In Sodium Chloride 0.9% 100 ml @ Per Protocol IV .Q0M [facility] Rx#:[id number] propofoL 1,000 mg In 8.472 Empty Bag 1 bag @ Titrate IV .Q0M [facility] Rx#: [id number] Output: Chest Tube Drainage 405 290 60 Chest Tube Left Pleural/ 405 290 60 Mediastinal Gastric Drainage 100 Urine 1825 530 90 Other: Voiding Method Indwelling Catheter Indwelling Catheter Weight 88 kg ABP, PAP, CO, CI - Last 8 Hours Arterial Blood Pressure 126/45 Arterial Blood Pressure 154/59 Arterial Blood Pressure 120/49 Pulmonary Artery Pressure 15/2 Pulmonary Artery Pressure 14/2 Pulmonary Artery Pressure 26/11 Pulmonary Artery Pressure 25/12 Pulmonary Artery Pressure 24/9 Pulmonary Artery Pressure 25/10 Pulmonary Artery Pressure 26/11 Pulmonary Artery Pressure 25/10 Pulmonary Artery Pressure 22/9 Pulmonary Artery Pressure 25/11 Pulmonary Artery Pressure 26/12 Pulmonary Artery Pressure 26/12 Cardiac Output 5.5 Cardiac Output 6.5 Cardiac Output 5.7 Cardiac Output 5.9 Cardiac Output 5.6 Cardiac Index 2.7 Cardiac Index 3.2 Cardiac Index 2.8 Cardiac Index 2.9 Cardiac Index 2.7 GENERAL: The patient is is intubated and sedated HEENT: Pupils are round and equally reacting to light. EOMI. No scleral icterus. No conjunctival pallor. Normocephalic, atraumatic. No pharyngeal erythema. No thyromegaly. -CARDIOVASCULAR: S1 and S2 present. No murmurs, rubs, or gallops. Surgical wound is closed in dressing is in place PULMONARY: Chest is clear to auscultation, no wheezing or crackles. ABDOMEN: Soft, nontender, nondistended, normoactive bowel sounds. No palpable organomegaly. MUSCULOSKELETAL: No joint swelling or deformity. EXTREMITIES: No cyanosis, clubbing, or pedal edema. NEUROLOGICAL: Gross neurological examination did not reveal any focal deficits. SKIN: No rashes. No petechiae Results CBC & Chem 7: 04/01/20 04:00 04/01/20 04:00 Labs: Abnormal Lab Results - Last 24 Hours (Table) 03/22/20 03/31/20 03/31/20 Range/Units 05:54 08:59 11:10 WBC (3.8-10.6) k/uL RBC (4.30-5.90) m/uL Hgb (13.0-17.5) gm/dL Hct (39.0-53.0) % Plt Count (150-450) k/uL Neutrophils # (1.3-7.7) k/uL Lymphocytes # (1.0-4.8) k/uL PT (9.0-12.0) sec INR (<1.2) APTT (22.0-30.0) sec ABG pH (7.35-7.45) ABG pCO2 (35-45) mmHg ABG pO2 149 H 220 H (83-108) mmHg ABG HCO3 (21-25) mmol/L ABG Total CO2 26 H 26 H (19-24) mmol/L ABG O2 Saturation 99.3 H 99.7 H (94-97) % ABG Hematocrit (34.0-46.0) % ABG Sodium (135-146) mmol/L ABG Potassium (3.4-4.5) mmol/L ABG Ionized Calcium (4.5-5.3) mg/dL ABG Glucose 104 H 116 H (75-99) mg/dL ABG Lactic Acid (0.5-1.6) mmol/L Hemoglobin 12.8 L 12.7 L (13.0-17.5) gm/dL Glucose (74-99) mg/dL POC Glucose (mg/dL) (75-99) mg/dL Calcium (8.4-10.2) mg/dL Ionized Calcium Mauricio (4.5-5.3) mg/dL Magnesium (1.6-2.3) mg/dL AST (17-59) U/L Total Protein (6.3-8.2) g/dL Albumin (3.5-5.0) g/dL Arterial Blood Potassium (3.4-4.5) mmol/L Arterial Blood Glucose 104 H 116 H (75-99) mg/dL Crossmatch See Detail 03/31/20 03/31/20 03/31/20 Range/Units 11:50 12:29 13:01 WBC (3.8-10.6) k/uL RBC (4.30-5.90) m/uL Hgb (13.0-17.5) gm/dL Hct (39.0-53.0) % Plt Count (150-450) k/uL Neutrophils # (1.3-7.7) k/uL Lymphocytes # (1.0-4.8) k/uL PT (9.0-12.0) sec INR (<1.2) APTT (22.0-30.0) sec ABG pH 7.33 L (7.35-7.45) ABG pCO2 46 H (35-45) mmHg ABG pO2 231 H 330 H 326 H (83-108) mmHg ABG HCO3 (21-25) mmol/L ABG Total CO2 26 H 26 H 25 H (19-24) mmol/L ABG O2 Saturation 99.8 H 99.9 H 99.9 H (94-97) % ABG Hematocrit 29 L 29 L 28 L (34.0-46.0) % ABG Sodium 134 L (135-146) mmol/L ABG Potassium 5.5 H 5.4 H 5.0 H (3.4-4.5) mmol/L ABG Ionized Calcium 4.1 L 4.3 L 4.3 L (4.5-5.3) mg/dL ABG Glucose 180 H 157 H 171 H (75-99) mg/dL ABG Lactic Acid 1.7 H 2.1 H (0.5-1.6) mmol/L Hemoglobin 9.5 L 9.6 L 9.1 L (13.0-17.5) gm/dL Glucose (74-99) mg/dL POC Glucose (mg/dL) (75-99) mg/dL Calcium (8.4-10.2) mg/dL Ionized Calcium Mauricio (4.5-5.3) mg/dL Magnesium (1.6-2.3) mg/dL AST (17-59) U/L Total Protein (6.3-8.2) g/dL Albumin (3.5-5.0) g/dL Arterial Blood Potassium 5.5 H 5.4 H 5.0 H (3.4-4.5) mmol/L Arterial Blood Glucose 180 H 157 H 171 H (75-99) mg/dL Crossmatch 03/31/20 03/31/20 03/31/20 Range/Units 13:56 15:07 15:15 WBC 11.6 H (3.8-10.6) k/uL RBC 3.39 L (4.30-5.90) m/uL Hgb 10.2 L D (13.0-17.5) gm/dL Hct 30.7 L (39.0-53.0) % Plt Count 104 L (150-450) k/uL Neutrophils # 9.5 H (1.3-7.7) k/uL Lymphocytes # (1.0-4.8) k/uL PT (9.0-12.0) sec INR (<1.2) APTT (22.0-30.0) sec ABG pH (7.35-7.45) ABG pCO2 (35-45) mmHg ABG pO2 192 H (83-108) mmHg ABG HCO3 (21-25) mmol/L ABG Total CO2 (19-24) mmol/L ABG O2 Saturation 99.6 H (94-97) % ABG Hematocrit 29 L (34.0-46.0) % ABG Sodium (135-146) mmol/L ABG Potassium (3.4-4.5) mmol/L ABG Ionized Calcium 4.4 L (4.5-5.3) mg/dL ABG Glucose 144 H (75-99) mg/dL ABG Lactic Acid 1.9 H (0.5-1.6) mmol/L Hemoglobin 9.5 L (13.0-17.5) gm/dL Glucose (74-99) mg/dL POC Glucose (mg/dL) 101 H (75-99) mg/dL Calcium (8.4-10.2) mg/dL Ionized Calcium Mauricio (4.5-5.3) mg/dL Magnesium (1.6-2.3) mg/dL AST (17-59) U/L Total Protein (6.3-8.2) g/dL Albumin (3.5-5.0) g/dL Arterial Blood Potassium (3.4-4.5) mmol/L Arterial Blood Glucose 144 H (75-99) mg/dL Crossmatch 03/31/20 03/31/20 03/31/20 Range/Units 15:15 15:15 15:24 WBC (3.8-10.6) k/uL RBC (4.30-5.90) m/uL Hgb (13.0-17.5) gm/dL Hct (39.0-53.0) % Plt Count (150-450) k/uL Neutrophils # (1.3-7.7) k/uL Lymphocytes # (1.0-4.8) k/uL PT 12.8 H (9.0-12.0) sec INR 1.3 H (<1.2) APTT 30.8 H (22.0-30.0) sec ABG pH (7.35-7.45) ABG pCO2 (35-45) mmHg ABG pO2 313 H (83-108) mmHg ABG HCO3 26 H (21-25) mmol/L ABG Total CO2 27 H (19-24) mmol/L ABG O2 Saturation 99.6 H (94-97) % ABG Hematocrit (34.0-46.0) % ABG Sodium (135-146) mmol/L ABG Potassium (3.4-4.5) mmol/L ABG Ionized Calcium (4.5-5.3) mg/dL ABG Glucose (75-99) mg/dL ABG Lactic Acid (0.5-1.6) mmol/L Hemoglobin (13.0-17.5) gm/dL Glucose (74-99) mg/dL POC Glucose (mg/dL) (75-99) mg/dL Calcium 7.6 L (8.4-10.2) mg/dL Ionized Calcium Mauricio (4.5-5.3) mg/dL Magnesium 3.0 H (1.6-2.3) mg/dL AST (17-59) U/L Total Protein 5.0 L (6.3-8.2) g/dL Albumin 3.2 L (3.5-5.0) g/dL Arterial Blood Potassium (3.4-4.5) mmol/L Arterial Blood Glucose (75-99) mg/dL Crossmatch 03/31/20 03/31/20 03/31/20 Range/Units 16:21 17:13 18:14 WBC (3.8-10.6) k/uL RBC (4.30-5.90) m/uL Hgb (13.0-17.5) gm/dL Hct (39.0-53.0) % Plt Count (150-450) k/uL Neutrophils # (1.3-7.7) k/uL Lymphocytes # (1.0-4.8) k/uL PT (9.0-12.0) sec INR (<1.2) APTT (22.0-30.0) sec ABG pH (7.35-7.45) ABG pCO2 (35-45) mmHg ABG pO2 (83-108) mmHg ABG HCO3 (21-25) mmol/L ABG Total CO2 (19-24) mmol/L ABG O2 Saturation (94-97) % ABG Hematocrit (34.0-46.0) % ABG Sodium (135-146) mmol/L ABG Potassium (3.4-4.5) mmol/L ABG Ionized Calcium (4.5-5.3) mg/dL ABG Glucose (75-99) mg/dL ABG Lactic Acid (0.5-1.6) mmol/L Hemoglobin (13.0-17.5) gm/dL Glucose (74-99) mg/dL POC Glucose (mg/dL) 100 H 122 H 139 H (75-99) mg/dL Calcium (8.4-10.2) mg/dL Ionized Calcium Mauricio (4.5-5.3) mg/dL Magnesium (1.6-2.3) mg/dL AST (17-59) U/L Total Protein (6.3-8.2) g/dL Albumin (3.5-5.0) g/dL Arterial Blood Potassium (3.4-4.5) mmol/L Arterial Blood Glucose (75-99) mg/dL Crossmatch 03/31/20 03/31/20 03/31/20 Range/Units 18:30 18:38 20:04 WBC 17.1 H (3.8-10.6) k/uL RBC 3.75 L (4.30-5.90) m/uL Hgb 11.1 L (13.0-17.5) gm/dL Hct 33.9 L (39.0-53.0) % Plt Count 146 L (150-450) k/uL Neutrophils # 14.7 H (1.3-7.7) k/uL Lymphocytes # (1.0-4.8) k/uL PT (9.0-12.0) sec INR (<1.2) APTT (22.0-30.0) sec ABG pH (7.35-7.45) ABG pCO2 (35-45) mmHg ABG pO2 (83-108) mmHg ABG HCO3 (21-25) mmol/L ABG Total CO2 (19-24) mmol/L ABG O2 Saturation (94-97) % ABG Hematocrit (34.0-46.0) % ABG Sodium (135-146) mmol/L ABG Potassium (3.4-4.5) mmol/L ABG Ionized Calcium (4.5-5.3) mg/dL ABG Glucose (75-99) mg/dL ABG Lactic Acid (0.5-1.6) mmol/L Hemoglobin (13.0-17.5) gm/dL Glucose (74-99) mg/dL POC Glucose (mg/dL) 146 H 140 H (75-99) mg/dL Calcium (8.4-10.2) mg/dL Ionized Calcium Mauricio (4.5-5.3) mg/dL Magnesium (1.6-2.3) mg/dL AST (17-59) U/L Total Protein (6.3-8.2) g/dL Albumin (3.5-5.0) g/dL Arterial Blood Potassium (3.4-4.5) mmol/L Arterial Blood Glucose (75-99) mg/dL Crossmatch 03/31/20 03/31/20 03/31/20 Range/Units 20:49 21:18 21:18 WBC 14.4 H (3.8-10.6) k/uL RBC 3.74 L (4.30-5.90) m/uL Hgb 11.1 L (13.0-17.5) gm/dL Hct 33.8 L (39.0-53.0) % Plt Count 126 L (150-450) k/uL Neutrophils # 12.9 H (1.3-7.7) k/uL Lymphocytes # 0.7 L (1.0-4.8) k/uL PT (9.0-12.0) sec INR (<1.2) APTT (22.0-30.0) sec ABG pH (7.35-7.45) ABG pCO2 47 H (35-45) mmHg ABG pO2 144 H (83-108) mmHg ABG HCO3 26 H (21-25) mmol/L ABG Total CO2 28 H (19-24) mmol/L ABG O2 Saturation 98.9 H (94-97) % ABG Hematocrit (34.0-46.0) % ABG Sodium (135-146) mmol/L ABG Potassium (3.4-4.5) mmol/L ABG Ionized Calcium (4.5-5.3) mg/dL ABG Glucose (75-99) mg/dL ABG Lactic Acid (0.5-1.6) mmol/L Hemoglobin (13.0-17.5) gm/dL Glucose (74-99) mg/dL POC Glucose (mg/dL) 117 H (75-99) mg/dL Calcium (8.4-10.2) mg/dL Ionized Calcium Mauricio (4.5-5.3) mg/dL Magnesium (1.6-2.3) mg/dL AST (17-59) U/L Total Protein (6.3-8.2) g/dL Albumin (3.5-5.0) g/dL Arterial Blood Potassium (3.4-4.5) mmol/L Arterial Blood Glucose (75-99) mg/dL Crossmatch 03/31/20 03/31/20 03/31/20 Range/Units 22:11 22:59 23:56 WBC (3.8-10.6) k/uL RBC (4.30-5.90) m/uL Hgb (13.0-17.5) gm/dL Hct (39.0-53.0) % Plt Count (150-450) k/uL Neutrophils # (1.3-7.7) k/uL Lymphocytes # (1.0-4.8) k/uL PT (9.0-12.0) sec INR (<1.2) APTT (22.0-30.0) sec ABG pH (7.35-7.45) ABG pCO2 (35-45) mmHg ABG pO2 (83-108) mmHg ABG HCO3 (21-25) mmol/L ABG Total CO2 (19-24) mmol/L ABG O2 Saturation (94-97) % ABG Hematocrit (34.0-46.0) % ABG Sodium (135-146) mmol/L ABG Potassium (3.4-4.5) mmol/L ABG Ionized Calcium (4.5-5.3) mg/dL ABG Glucose (75-99) mg/dL ABG Lactic Acid (0.5-1.6) mmol/L Hemoglobin (13.0-17.5) gm/dL Glucose (74-99) mg/dL POC Glucose (mg/dL) 115 H 114 H 123 H (75-99) mg/dL Calcium (8.4-10.2) mg/dL Ionized Calcium Mauricio (4.5-5.3) mg/dL Magnesium (1.6-2.3) mg/dL AST (17-59) U/L Total Protein (6.3-8.2) g/dL Albumin (3.5-5.0) g/dL Arterial Blood Potassium (3.4-4.5) mmol/L Arterial Blood Glucose (75-99) mg/dL Crossmatch 04/01/20 04/01/20 04/01/20 Range/Units 00:57 01:57 03:00 WBC (3.8-10.6) k/uL RBC (4.30-5.90) m/uL Hgb (13.0-17.5) gm/dL Hct (39.0-53.0) % Plt Count (150-450) k/uL Neutrophils # (1.3-7.7) k/uL Lymphocytes # (1.0-4.8) k/uL PT (9.0-12.0) sec INR (<1.2) APTT (22.0-30.0) sec ABG pH (7.35-7.45) ABG pCO2 (35-45) mmHg ABG pO2 (83-108) mmHg ABG HCO3 (21-25) mmol/L ABG Total CO2 (19-24) mmol/L ABG O2 Saturation (94-97) % ABG Hematocrit (34.0-46.0) % ABG Sodium (135-146) mmol/L ABG Potassium (3.4-4.5) mmol/L ABG Ionized Calcium (4.5-5.3) mg/dL ABG Glucose (75-99) mg/dL ABG Lactic Acid (0.5-1.6) mmol/L Hemoglobin (13.0-17.5) gm/dL Glucose (74-99) mg/dL POC Glucose (mg/dL) 123 H 115 H 117 H (75-99) mg/dL Calcium (8.4-10.2) mg/dL Ionized Calcium Mauricio (4.5-5.3) mg/dL Magnesium (1.6-2.3) mg/dL AST (17-59) U/L Total Protein (6.3-8.2) g/dL Albumin (3.5-5.0) g/dL Arterial Blood Potassium (3.4-4.5) mmol/L Arterial Blood Glucose (75-99) mg/dL Crossmatch 04/01/20 04/01/20 04/01/20 Range/Units 03:56 04:00 04:00 WBC 13.2 H (3.8-10.6) k/uL RBC 3.66 L (4.30-5.90) m/uL Hgb 10.9 L (13.0-17.5) gm/dL Hct 33.0 L (39.0-53.0) % Plt Count 130 L (150-450) k/uL Neutrophils # 11.8 H (1.3-7.7) k/uL Lymphocytes # 0.6 L (1.0-4.8) k/uL PT (9.0-12.0) sec INR (<1.2) APTT (22.0-30.0) sec ABG pH (7.35-7.45) ABG pCO2 (35-45) mmHg ABG pO2 (83-108) mmHg ABG HCO3 (21-25) mmol/L ABG Total CO2 (19-24) mmol/L ABG O2 Saturation (94-97) % ABG Hematocrit (34.0-46.0) % ABG Sodium (135-146) mmol/L ABG Potassium (3.4-4.5) mmol/L ABG Ionized Calcium (4.5-5.3) mg/dL ABG Glucose (75-99) mg/dL ABG Lactic Acid (0.5-1.6) mmol/L Hemoglobin (13.0-17.5) gm/dL Glucose 119 H (74-99) mg/dL POC Glucose (mg/dL) 128 H (75-99) mg/dL Calcium 7.5 L (8.4-10.2) mg/dL Ionized Calcium Mauricio 4.2 L (4.5-5.3) mg/dL Magnesium 2.5 H (1.6-2.3) mg/dL AST 120 H (17-59) U/L Total Protein 5.2 L (6.3-8.2) g/dL Albumin 3.3 L (3.5-5.0) g/dL Arterial Blood Potassium (3.4-4.5) mmol/L Arterial Blood Glucose (75-99) mg/dL Crossmatch 04/01/20 04/01/20 04/01/20 Range/Units 05:11 07:01 07:54 WBC (3.8-10.6) k/uL RBC (4.30-5.90) m/uL Hgb (13.0-17.5) gm/dL Hct (39.0-53.0) % Plt Count (150-450) k/uL Neutrophils # (1.3-7.7) k/uL Lymphocytes # (1.0-4.8) k/uL PT (9.0-12.0) sec INR (<1.2) APTT (22.0-30.0) sec ABG pH (7.35-7.45) ABG pCO2 (35-45) mmHg ABG pO2 (83-108) mmHg ABG HCO3 (21-25) mmol/L ABG Total CO2 (19-24) mmol/L ABG O2 Saturation (94-97) % ABG Hematocrit (34.0-46.0) % ABG Sodium (135-146) mmol/L ABG Potassium (3.4-4.5) mmol/L ABG Ionized Calcium (4.5-5.3) mg/dL ABG Glucose (75-99) mg/dL ABG Lactic Acid (0.5-1.6) mmol/L Hemoglobin (13.0-17.5) gm/dL Glucose (74-99) mg/dL POC Glucose (mg/dL) 126 H 127 H 116 H (75-99) mg/dL Calcium (8.4-10.2) mg/dL Ionized Calcium Mauricio (4.5-5.3) mg/dL Magnesium (1.6-2.3) mg/dL AST (17-59) U/L Total Protein (6.3-8.2) g/dL Albumin (3.5-5.0) g/dL Arterial Blood Potassium (3.4-4.5) mmol/L Arterial Blood Glucose (75-99) mg/dL Crossmatch Assessment and Plan Assessment: Triple-vessel Coronary artery disease status post coronary artery bypass surgery. Essential hypertension Hyperlipidemia Acute blood loss anemia secondary to surgery Hypothyroidism Hyperlipidemia Plan: This is a pleasant 74 years old male status post CABG for his CAD. Continue with aspirin. Patient for emergency room consultants including pulmonary/critical care team, cardiology are following the patient closely. Labs and medication were reviewed.. Continue same treatment. Continue with symptomatic treatment. Resume home medication. Monitor lytes and vitals. DVT and GI prophylaxis. Further recommendations of the clinical course of the patient DVT prophylaxis: Subcutaneous heparin GI Prophylaxis: Pepcid PT/OT: Pending Prognosis is guarded
[2020-04-01 10:22] LABS: Glucose,Whole Blood 141 mg/dL (75-99)
[2020-04-01 10:35] VITALS: BMI 27.0
--- NOTE | 2020-04-01 10:44 | P.PN ---
Subjective Progress Note Date: 04/01/20 Principal diagnosis: Coronary artery disease. 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 POD #1 Coronary artery bypass grafting x4 with left internal mammary artery to left anterior descending artery, reverse saphenous vein grafts off the artery to the diagonal artery, right coronary artery and the posterior descending artery with right greater saphenous vein endoscopic vein harvesting, clip ligation of the left atrial appendage with a 35 mm AtriClip and intraoperative FRANCISCO. The patient was seen and examined sitting up in the chair in the intensive care unit in no acute distress. He was successfully extubated at 21:05 last night. He denies any pain and shortness of breath. He is currently on 2L nasal cannula, saturating 97%. The PA catheter/Cordis, A/V wires attached to generator, VVI@ 50, left arterial line, grant catheter, left pleural and mediastinal chest tubes are intact. Last CO/CI was 5.5/2.7, PA pressure 26/11, CVP 9, on no inotropic or vasopressor support. He is able to achieve 1000 mL on incentive spirometer, cough is strong. His pleural and mediastinal chest tubes are connected to wall suction, 290 mL serosangious drainage overnight, 750 mL in 24 hours, no air leak. Objective - Vital Signs Vital signs: Vital Signs Temp 98.1 F 04/01/20 08:00 Pulse 80 04/01/20 09:00 Resp 13 04/01/20 09:00 BP 123/56 04/01/20 09:00 Pulse Ox 97 04/01/20 09:00 Intake & Output 03/31/20 04/01/20 04/01/20 18:59 06:59 18:59 Intake Total 489.823 4864.678 467.449 Output Total 3380 1520 150 Balance -3041.195 -267.322 317.449 Weight 88 kg Intake: IV 328.5 1244 460 Albumin 5% 250 CO/CI injectate 300 30 Calcium Gluconate 2 gm In 100 Sodium Chloride 0.9% 100 ml @ 100 mls/hr IVPB ONCE PRN Rx#:[id number] Lactated Ringers 1,000 ml 200 600 150 @ 20 mls/hr IV .Q24H [facility] Rx#:[id number] Nitroglycerin-D5w Pmx 50 10.5 36 3 mg In Dextrose/Water 1 250ml.bag @ Per Protocol IV ONCE ONE Rx#:[id number] Pressure Bag 36 108 27 ceFAZolin 2 gm In Sodium 50 100 Chloride 0.9% 50 ml @ 100 mls/hr IVPB Q8HR [facility] Rx# :[id number] Intake, IV Titration 10.305 8.678 7.449 Amount Clevidipine Butyrate 25 1.833 mg In Empty Bag 1 bag @ 1 MG/HR 2 mls/hr IV .Q24H [facility] Rx#:[id number] Insulin Regular 100 unit 8.678 7.449 In Sodium Chloride 0.9% 100 ml @ Per Protocol IV .Q0M [facility] Rx#:[id number] propofoL 1,000 mg In 8.472 Empty Bag 1 bag @ Titrate IV .Q0M [facility] Rx#: [id number] Output: Chest Tube Drainage 295 400 60 Chest Tube Left Pleural/ 295 400 60 Mediastinal Gastric Drainage 100 Urine 2085 1020 90 Estimated Blood Loss 1000 Other: Voiding Method Indwelling Catheter Indwelling Catheter ABP, PAP, CO, CI - Last Documented Arterial Blood Pressure 126/45 Pulmonary Artery Pressure 15/2 Cardiac Output 5.5 Cardiac Index 2.7 - Constitutional General appearance: Present: average body habitus, no acute distress - Neck Details: Right IJ cordis/swan thierry intact. - Respiratory Details: Lung sounds diminished bilaterally. Respiration even, non-labored. Currently on 2L nasal cannula with oxygen saturation 97%. Able to achieve 1000 mL on his incentive spirometry. Strong cough. Left pleural and mediastinal chest tube present to continuous wall suction, 290 mL serosanguinous drainage last 12 hours, 750mL in the last 24 hours. No air leaks present. - Cardiovascular Details: S1/S2 present. Regular rate and rhythm on telemetry. Sternum stable. A/V epicardial wires present, VVI @50. Palpable peripheral pulses bilaterally, no edema present. Heart hugger in place with patient demonstrating appropriate use. Antiembolism stockings, SCDs presnt. - Gastrointestinal Gastrointestinal Comment(s): Abdomen soft, non-tender, non-distended. Active bowel sounds x 4 quadrants. Tolerating liquids. Negative flatus, negative BM - Genitourinary Genitourinary Comment(s): Grant present draining clear yellow urine. Output overnight 30-75 mL/hr. - Integumentary Integumentary Comment(s): Skin is warm and dry with evidence of good perfusion. Anterior chest incision well approximated and covered with dry intact dressing. Left lower extremity E VH site well approximated - Neurologic Neurologic: Present: CNII-XII intact - Musculoskeletal Musculoskeletal: Present: gait normal, strength equal bilaterally - Psychiatric Psychiatric: Present: A&O x's 3, appropriate affect, intact judgment & insight - Allied health notes Allied health notes reviewed: nursing - Labs CBC & Chem 7: 04/01/20 04:00 04/01/20 04:00 Labs: Abnormal Lab Results - Last 24 Hours (Table) 03/22/20 03/31/20 03/31/20 Range/Units 05:54 08:59 11:10 WBC (3.8-10.6) k/uL RBC (4.30-5.90) m/uL Hgb (13.0-17.5) gm/dL Hct (39.0-53.0) % Plt Count (150-450) k/uL Neutrophils # (1.3-7.7) k/uL Lymphocytes # (1.0-4.8) k/uL PT (9.0-12.0) sec INR (<1.2) APTT (22.0-30.0) sec ABG pH (7.35-7.45) ABG pCO2 (35-45) mmHg ABG pO2 149 H 220 H (83-108) mmHg ABG HCO3 (21-25) mmol/L ABG Total CO2 26 H 26 H (19-24) mmol/L ABG O2 Saturation 99.3 H 99.7 H (94-97) % ABG Hematocrit (34.0-46.0) % ABG Sodium (135-146) mmol/L ABG Potassium (3.4-4.5) mmol/L ABG Ionized Calcium (4.5-5.3) mg/dL ABG Glucose 104 H 116 H (75-99) mg/dL ABG Lactic Acid (0.5-1.6) mmol/L Hemoglobin 12.8 L 12.7 L (13.0-17.5) gm/dL Glucose (74-99) mg/dL POC Glucose (mg/dL) (75-99) mg/dL Calcium (8.4-10.2) mg/dL Ionized Calcium Mauricio (4.5-5.3) mg/dL Magnesium (1.6-2.3) mg/dL AST (17-59) U/L Total Protein (6.3-8.2) g/dL Albumin (3.5-5.0) g/dL Arterial Blood Potassium (3.4-4.5) mmol/L Arterial Blood Glucose 104 H 116 H (75-99) mg/dL Crossmatch See Detail 03/31/20 03/31/20 03/31/20 Range/Units 11:50 12:29 13:01 WBC (3.8-10.6) k/uL RBC (4.30-5.90) m/uL Hgb (13.0-17.5) gm/dL Hct (39.0-53.0) % Plt Count (150-450) k/uL Neutrophils # (1.3-7.7) k/uL Lymphocytes # (1.0-4.8) k/uL PT (9.0-12.0) sec INR (<1.2) APTT (22.0-30.0) sec ABG pH 7.33 L (7.35-7.45) ABG pCO2 46 H (35-45) mmHg ABG pO2 231 H 330 H 326 H (83-108) mmHg ABG HCO3 (21-25) mmol/L ABG Total CO2 26 H 26 H 25 H (19-24) mmol/L ABG O2 Saturation 99.8 H 99.9 H 99.9 H (94-97) % ABG Hematocrit 29 L 29 L 28 L (34.0-46.0) % ABG Sodium 134 L (135-146) mmol/L ABG Potassium 5.5 H 5.4 H 5.0 H (3.4-4.5) mmol/L ABG Ionized Calcium 4.1 L 4.3 L 4.3 L (4.5-5.3) mg/dL ABG Glucose 180 H 157 H 171 H (75-99) mg/dL ABG Lactic Acid 1.7 H 2.1 H (0.5-1.6) mmol/L Hemoglobin 9.5 L 9.6 L 9.1 L (13.0-17.5) gm/dL Glucose (74-99) mg/dL POC Glucose (mg/dL) (75-99) mg/dL Calcium (8.4-10.2) mg/dL Ionized Calcium Mauricio (4.5-5.3) mg/dL Magnesium (1.6-2.3) mg/dL AST (17-59) U/L Total Protein (6.3-8.2) g/dL Albumin (3.5-5.0) g/dL Arterial Blood Potassium 5.5 H 5.4 H 5.0 H (3.4-4.5) mmol/L Arterial Blood Glucose 180 H 157 H 171 H (75-99) mg/dL Crossmatch 03/31/20 03/31/20 03/31/20 Range/Units 13:56 15:07 15:15 WBC 11.6 H (3.8-10.6) k/uL RBC 3.39 L (4.30-5.90) m/uL Hgb 10.2 L D (13.0-17.5) gm/dL Hct 30.7 L (39.0-53.0) % Plt Count 104 L (150-450) k/uL Neutrophils # 9.5 H (1.3-7.7) k/uL Lymphocytes # (1.0-4.8) k/uL PT (9.0-12.0) sec INR (<1.2) APTT (22.0-30.0) sec ABG pH (7.35-7.45) ABG pCO2 (35-45) mmHg ABG pO2 192 H (83-108) mmHg ABG HCO3 (21-25) mmol/L ABG Total CO2 (19-24) mmol/L ABG O2 Saturation 99.6 H (94-97) % ABG Hematocrit 29 L (34.0-46.0) % ABG Sodium (135-146) mmol/L ABG Potassium (3.4-4.5) mmol/L ABG Ionized Calcium 4.4 L (4.5-5.3) mg/dL ABG Glucose 144 H (75-99) mg/dL ABG Lactic Acid 1.9 H (0.5-1.6) mmol/L Hemoglobin 9.5 L (13.0-17.5) gm/dL Glucose (74-99) mg/dL POC Glucose (mg/dL) 101 H (75-99) mg/dL Calcium (8.4-10.2) mg/dL Ionized Calcium Mauricio (4.5-5.3) mg/dL Magnesium (1.6-2.3) mg/dL AST (17-59) U/L Total Protein (6.3-8.2) g/dL Albumin (3.5-5.0) g/dL Arterial Blood Potassium (3.4-4.5) mmol/L Arterial Blood Glucose 144 H (75-99) mg/dL Crossmatch 03/31/20 03/31/20 03/31/20 Range/Units 15:15 15:15 15:24 WBC (3.8-10.6) k/uL RBC (4.30-5.90) m/uL Hgb (13.0-17.5) gm/dL Hct (39.0-53.0) % Plt Count (150-450) k/uL Neutrophils # (1.3-7.7) k/uL Lymphocytes # (1.0-4.8) k/uL PT 12.8 H (9.0-12.0) sec INR 1.3 H (<1.2) APTT 30.8 H (22.0-30.0) sec ABG pH (7.35-7.45) ABG pCO2 (35-45) mmHg ABG pO2 313 H (83-108) mmHg ABG HCO3 26 H (21-25) mmol/L ABG Total CO2 27 H (19-24) mmol/L ABG O2 Saturation 99.6 H (94-97) % ABG Hematocrit (34.0-46.0) % ABG Sodium (135-146) mmol/L ABG Potassium (3.4-4.5) mmol/L ABG Ionized Calcium (4.5-5.3) mg/dL ABG Glucose (75-99) mg/dL ABG Lactic Acid (0.5-1.6) mmol/L Hemoglobin (13.0-17.5) gm/dL Glucose (74-99) mg/dL POC Glucose (mg/dL) (75-99) mg/dL Calcium 7.6 L (8.4-10.2) mg/dL Ionized Calcium Mauricio (4.5-5.3) mg/dL Magnesium 3.0 H (1.6-2.3) mg/dL AST (17-59) U/L Total Protein 5.0 L (6.3-8.2) g/dL Albumin 3.2 L (3.5-5.0) g/dL Arterial Blood Potassium (3.4-4.5) mmol/L Arterial Blood Glucose (75-99) mg/dL Crossmatch 03/31/20 03/31/20 03/31/20 Range/Units 16:21 17:13 18:14 WBC (3.8-10.6) k/uL RBC (4.30-5.90) m/uL Hgb (13.0-17.5) gm/dL Hct (39.0-53.0) % Plt Count (150-450) k/uL Neutrophils # (1.3-7.7) k/uL Lymphocytes # (1.0-4.8) k/uL PT (9.0-12.0) sec INR (<1.2) APTT (22.0-30.0) sec ABG pH (7.35-7.45) ABG pCO2 (35-45) mmHg ABG pO2 (83-108) mmHg ABG HCO3 (21-25) mmol/L ABG Total CO2 (19-24) mmol/L ABG O2 Saturation (94-97) % ABG Hematocrit (34.0-46.0) % ABG Sodium (135-146) mmol/L ABG Potassium (3.4-4.5) mmol/L ABG Ionized Calcium (4.5-5.3) mg/dL ABG Glucose (75-99) mg/dL ABG Lactic Acid (0.5-1.6) mmol/L Hemoglobin (13.0-17.5) gm/dL Glucose (74-99) mg/dL POC Glucose (mg/dL) 100 H 122 H 139 H (75-99) mg/dL Calcium (8.4-10.2) mg/dL Ionized Calcium Mauricio (4.5-5.3) mg/dL Magnesium (1.6-2.3) mg/dL AST (17-59) U/L Total Protein (6.3-8.2) g/dL Albumin (3.5-5.0) g/dL Arterial Blood Potassium (3.4-4.5) mmol/L Arterial Blood Glucose (75-99) mg/dL Crossmatch 03/31/20 03/31/20 03/31/20 Range/Units 18:30 18:38 20:04 WBC 17.1 H (3.8-10.6) k/uL RBC 3.75 L (4.30-5.90) m/uL Hgb 11.1 L (13.0-17.5) gm/dL Hct 33.9 L (39.0-53.0) % Plt Count 146 L (150-450) k/uL Neutrophils # 14.7 H (1.3-7.7) k/uL Lymphocytes # (1.0-4.8) k/uL PT (9.0-12.0) sec INR (<1.2) APTT (22.0-30.0) sec ABG pH (7.35-7.45) ABG pCO2 (35-45) mmHg ABG pO2 (83-108) mmHg ABG HCO3 (21-25) mmol/L ABG Total CO2 (19-24) mmol/L ABG O2 Saturation (94-97) % ABG Hematocrit (34.0-46.0) % ABG Sodium (135-146) mmol/L ABG Potassium (3.4-4.5) mmol/L ABG Ionized Calcium (4.5-5.3) mg/dL ABG Glucose (75-99) mg/dL ABG Lactic Acid (0.5-1.6) mmol/L Hemoglobin (13.0-17.5) gm/dL Glucose (74-99) mg/dL POC Glucose (mg/dL) 146 H 140 H (75-99) mg/dL Calcium (8.4-10.2) mg/dL Ionized Calcium Mauricio (4.5-5.3) mg/dL Magnesium (1.6-2.3) mg/dL AST (17-59) U/L Total Protein (6.3-8.2) g/dL Albumin (3.5-5.0) g/dL Arterial Blood Potassium (3.4-4.5) mmol/L Arterial Blood Glucose (75-99) mg/dL Crossmatch 03/31/20 03/31/20 03/31/20 Range/Units 20:49 21:18 21:18 WBC 14.4 H (3.8-10.6) k/uL RBC 3.74 L (4.30-5.90) m/uL Hgb 11.1 L (13.0-17.5) gm/dL Hct 33.8 L (39.0-53.0) % Plt Count 126 L (150-450) k/uL Neutrophils # 12.9 H (1.3-7.7) k/uL Lymphocytes # 0.7 L (1.0-4.8) k/uL PT (9.0-12.0) sec INR (<1.2) APTT (22.0-30.0) sec ABG pH (7.35-7.45) ABG pCO2 47 H (35-45) mmHg ABG pO2 144 H (83-108) mmHg ABG HCO3 26 H (21-25) mmol/L ABG Total CO2 28 H (19-24) mmol/L ABG O2 Saturation 98.9 H (94-97) % ABG Hematocrit (34.0-46.0) % ABG Sodium (135-146) mmol/L ABG Potassium (3.4-4.5) mmol/L ABG Ionized Calcium (4.5-5.3) mg/dL ABG Glucose (75-99) mg/dL ABG Lactic Acid (0.5-1.6) mmol/L Hemoglobin (13.0-17.5) gm/dL Glucose (74-99) mg/dL POC Glucose (mg/dL) 117 H (75-99) mg/dL Calcium (8.4-10.2) mg/dL Ionized Calcium Mauricio (4.5-5.3) mg/dL Magnesium (1.6-2.3) mg/dL AST (17-59) U/L Total Protein (6.3-8.2) g/dL Albumin (3.5-5.0) g/dL Arterial Blood Potassium (3.4-4.5) mmol/L Arterial Blood Glucose (75-99) mg/dL Crossmatch 03/31/20 03/31/20 03/31/20 Range/Units 22:11 22:59 23:56 WBC (3.8-10.6) k/uL RBC (4.30-5.90) m/uL Hgb (13.0-17.5) gm/dL Hct (39.0-53.0) % Plt Count (150-450) k/uL Neutrophils # (1.3-7.7) k/uL Lymphocytes # (1.0-4.8) k/uL PT (9.0-12.0) sec INR (<1.2) APTT (22.0-30.0) sec ABG pH (7.35-7.45) ABG pCO2 (35-45) mmHg ABG pO2 (83-108) mmHg ABG HCO3 (21-25) mmol/L ABG Total CO2 (19-24) mmol/L ABG O2 Saturation (94-97) % ABG Hematocrit (34.0-46.0) % ABG Sodium (135-146) mmol/L ABG Potassium (3.4-4.5) mmol/L ABG Ionized Calcium (4.5-5.3) mg/dL ABG Glucose (75-99) mg/dL ABG Lactic Acid (0.5-1.6) mmol/L Hemoglobin (13.0-17.5) gm/dL Glucose (74-99) mg/dL POC Glucose (mg/dL) 115 H 114 H 123 H (75-99) mg/dL Calcium (8.4-10.2) mg/dL Ionized Calcium Mauricio (4.5-5.3) mg/dL Magnesium (1.6-2.3) mg/dL AST (17-59) U/L Total Protein (6.3-8.2) g/dL Albumin (3.5-5.0) g/dL Arterial Blood Potassium (3.4-4.5) mmol/L Arterial Blood Glucose (75-99) mg/dL Crossmatch 04/01/20 04/01/20 04/01/20 Range/Units 00:57 01:57 03:00 WBC (3.8-10.6) k/uL RBC (4.30-5.90) m/uL Hgb (13.0-17.5) gm/dL Hct (39.0-53.0) % Plt Count (150-450) k/uL Neutrophils # (1.3-7.7) k/uL Lymphocytes # (1.0-4.8) k/uL PT (9.0-12.0) sec INR (<1.2) APTT (22.0-30.0) sec ABG pH (7.35-7.45) ABG pCO2 (35-45) mmHg ABG pO2 (83-108) mmHg ABG HCO3 (21-25) mmol/L ABG Total CO2 (19-24) mmol/L ABG O2 Saturation (94-97) % ABG Hematocrit (34.0-46.0) % ABG Sodium (135-146) mmol/L ABG Potassium (3.4-4.5) mmol/L ABG Ionized Calcium (4.5-5.3) mg/dL ABG Glucose (75-99) mg/dL ABG Lactic Acid (0.5-1.6) mmol/L Hemoglobin (13.0-17.5) gm/dL Glucose (74-99) mg/dL POC Glucose (mg/dL) 123 H 115 H 117 H (75-99) mg/dL Calcium (8.4-10.2) mg/dL Ionized Calcium Mauricio (4.5-5.3) mg/dL Magnesium (1.6-2.3) mg/dL AST (17-59) U/L Total Protein (6.3-8.2) g/dL Albumin (3.5-5.0) g/dL Arterial Blood Potassium (3.4-4.5) mmol/L Arterial Blood Glucose (75-99) mg/dL Crossmatch 04/01/20 04/01/20 04/01/20 Range/Units 03:56 04:00 04:00 WBC 13.2 H (3.8-10.6) k/uL RBC 3.66 L (4.30-5.90) m/uL Hgb 10.9 L (13.0-17.5) gm/dL Hct 33.0 L (39.0-53.0) % Plt Count 130 L (150-450) k/uL Neutrophils # 11.8 H (1.3-7.7) k/uL Lymphocytes # 0.6 L (1.0-4.8) k/uL PT (9.0-12.0) sec INR (<1.2) APTT (22.0-30.0) sec ABG pH (7.35-7.45) ABG pCO2 (35-45) mmHg ABG pO2 (83-108) mmHg ABG HCO3 (21-25) mmol/L ABG Total CO2 (19-24) mmol/L ABG O2 Saturation (94-97) % ABG Hematocrit (34.0-46.0) % ABG Sodium (135-146) mmol/L ABG Potassium (3.4-4.5) mmol/L ABG Ionized Calcium (4.5-5.3) mg/dL ABG Glucose (75-99) mg/dL ABG Lactic Acid (0.5-1.6) mmol/L Hemoglobin (13.0-17.5) gm/dL Glucose 119 H (74-99) mg/dL POC Glucose (mg/dL) 128 H (75-99) mg/dL Calcium 7.5 L (8.4-10.2) mg/dL Ionized Calcium Mauricio 4.2 L (4.5-5.3) mg/dL Magnesium 2.5 H (1.6-2.3) mg/dL AST 120 H (17-59) U/L Total Protein 5.2 L (6.3-8.2) g/dL Albumin 3.3 L (3.5-5.0) g/dL Arterial Blood Potassium (3.4-4.5) mmol/L Arterial Blood Glucose (75-99) mg/dL Crossmatch 04/01/20 04/01/20 04/01/20 Range/Units 05:11 07:01 07:54 WBC (3.8-10.6) k/uL RBC (4.30-5.90) m/uL Hgb (13.0-17.5) gm/dL Hct (39.0-53.0) % Plt Count (150-450) k/uL Neutrophils # (1.3-7.7) k/uL Lymphocytes # (1.0-4.8) k/uL PT (9.0-12.0) sec INR (<1.2) APTT (22.0-30.0) sec ABG pH (7.35-7.45) ABG pCO2 (35-45) mmHg ABG pO2 (83-108) mmHg ABG HCO3 (21-25) mmol/L ABG Total CO2 (19-24) mmol/L ABG O2 Saturation (94-97) % ABG Hematocrit (34.0-46.0) % ABG Sodium (135-146) mmol/L ABG Potassium (3.4-4.5) mmol/L ABG Ionized Calcium (4.5-5.3) mg/dL ABG Glucose (75-99) mg/dL ABG Lactic Acid (0.5-1.6) mmol/L Hemoglobin (13.0-17.5) gm/dL Glucose (74-99) mg/dL POC Glucose (mg/dL) 126 H 127 H 116 H (75-99) mg/dL Calcium (8.4-10.2) mg/dL Ionized Calcium Mauricio (4.5-5.3) mg/dL Magnesium (1.6-2.3) mg/dL AST (17-59) U/L Total Protein (6.3-8.2) g/dL Albumin (3.5-5.0) g/dL Arterial Blood Potassium (3.4-4.5) mmol/L Arterial Blood Glucose (75-99) mg/dL Crossmatch - Imaging and Cardiology Chest x-ray: report reviewed, image reviewed Assessment and Plan Assessment: 1. Multvessel coronary artery disease, S/P CABG x4 and ligation of left atrial appendage with 35mm AtriClip. 2. Familial history premature coronary artery disease, father passing of myocardial infarction at age 48. 3. History of hypothyroid. 4. History of BPH. 5. History of hyperlipidemia. 6. Preoperative nasal swab positive for MSSA Plan: 1. Continue aspirin, statin, Plavix, beta george therapy. Will increase beta george as tolerated 2. Discontiue swan-thierry. Connect cordis to continuous cvp monitoring 3. Wean oxygen as tolerated. Bronchodilators per pulmonology 4. Increase activity, ambulate as tolerated. PT/OT/cardiac rehab following 5. Will monitor daily labs, x-rays. Electrolyte replacement per protocol. 6. Will add Tramadol and discontinue oxycodone. Continue Toradol for pain management. 7. Insulin management per primary care. 8. Ground A/V wires. 9. Continue to monitor hourly urine output. 10. May continue use of arterial line for lab draws. 11. More recommendations to follow based on patients clinical course. Time with Patient: Greater than 30
[2020-04-01] MEDS: MUPIROCIN 2% OINT 22 GM TUBE NASAL SCH ×2 (11:28→20:16)
[2020-04-01] MEDS: LACTATED RINGERS 1,000 ML IV SCH (11:38)
[2020-04-01 11:57] LABS: Glucose,Whole Blood 117 mg/dL (75-99)
--- NOTE | 2020-04-01 12:22 | PN ---
PROGRESS NOTE The patient has known coronary artery disease and underwent bypass surgery yesterday. His bypass involved MATTHEWS to LAD, venous graft to diagonal, venous graft to RCA and PDA. He was extubated last night. He is free of significant symptoms this morning. PHYSICAL EXAMINATION: Heart rate is 73 beats per minute, blood pressure is 110/58, respiratory rate is 14, O2 saturation is 97% on 2 L. Chest exam reveals diminished air entry at the bases. Heart exam reveals first and second heart sounds. No gallop. Abdomen is soft. Exam of extremities did not reveal any edema. MEDICATIONS: The patient is currently on aspirin, Lipitor, Plavix, Synthroid, Lopressor. ASSESSMENT: Coronary artery disease, status post coronary artery bypass graft. PLAN: The patient is doing well. He will continue with his current medications, work on incentive spirometry. MMODL / IJN: [id number] /
[2020-04-01] MEDS: INSULIN ASPART (NovoLOG) 100 UNIT/ML VIAL SQ SCH ×3 (13:52→20:15)
[2020-04-01 14:05] LABS: Glucose,Whole Blood 140 mg/dL (75-99)
[2020-04-01 15:58] LABS: Glucose,Whole Blood 135 mg/dL (75-99)
[2020-04-01 17:13] LABS: Glucose,Whole Blood 128 mg/dL (75-99)
[2020-04-01 20:15] LABS: Glucose,Whole Blood 121 mg/dL (75-99)
[2020-04-01] MEDS: SENNOSIDES-DOCUSATE SODIUM 1 EACH TAB PO SCH (20:15)
[2020-04-01] MEDS: TAMSULOSIN 0.4 MG CAP.ER.24H PO SCH (20:15)
[2020-04-02 05:24] LABS: Ionized Calcium 4.7 mg/dL (4.5-5.3)
[2020-04-02 05:27] LABS: Basophils % (A) 0 %; Eosinophils % (A) 0 %; HCT 29.8 % (39.0-53.0); HGB 9.9 gm/dL (13.0-17.5); Lymphocytes # (A) 1.1 k/uL (1.0-4.8); Lymphocytes % (A) 10 %; MCH 30.1 pg (25.0-35.0); MCHC 33.2 g/dL (31.0-37.0); MCV 90.7 fL (80.0-100.0); Mean Platelet Volume 8.2; Monocytes # (A) 0.7 k/uL (0-1.0); Monocytes % (A) 6 %; Neutrophils # (A) 9.7 k/uL (1.3-7.7); Neutrophils % (A) 82 %; Platelet Count 130 k/uL (150-450); RBC 3.28 m/uL (4.30-5.90); RDW 13.3 % (11.5-15.5); WBC 11.9 k/uL (3.8-10.6)
[2020-04-02 05:36] LABS: ALT 19 U/L (4-49); AST 100 U/L (17-59); African American GFR (CKD) >90 (>60 ml/min/1.73 sqM); Albumin 3.2 g/dL (3.5-5.0); Alkaline Phosphatase 52 U/L (38-126); Anion Gap 3 mmol/L; Blood Urea Nitrogen 22 mg/dL (9-20); Calcium 7.8 mg/dL (8.4-10.2); Carbon Dioxide 27 mmol/L (22-30); Chloride 103 mmol/L (98-107); Glucose 107 mg/dL (74-99); Non-African American GFR(CKD) >90 (>60 ml/min/1.73 sqM); Potassium 4.4 mmol/L (3.5-5.1); Sodium 133 mmol/L (137-145); Total Bilirubin 0.6 mg/dL (0.2-1.3); Total Protein 5.1 g/dL (6.3-8.2)
[2020-04-02 07:10] LABS: Glucose,Whole Blood 127 mg/dL (75-99)
[2020-04-02] MEDS: LEVOTHYROXINE 125 MCG TAB PO SCH (07:10)
[2020-04-02] MEDS: KETOROLAC 15 MG/ML 1 ML VIAL IVP SCH ×3 (07:10→16:46)
[2020-04-02] MEDS: PANTOPRAZOLE 40 MG TABLET PO SCH (07:10)
[2020-04-02] MEDS: INSULIN ASPART (NovoLOG) 100 UNIT/ML VIAL SQ SCH ×4 (07:10→20:57)
--- NOTE | 2020-04-02 07:55 | XR ---
EXAMINATION TYPE: XR chest 1V portable DATE OF EXAM: 04/02/2020 COMPARISON: 04/01/2020 HISTORY: Tube placement TECHNIQUE: Single frontal view of the chest is obtained. FINDINGS: [place]-Pati catheter has been removed. No sizable pneumothorax. Mediastinal drain and chest tube noted. Elevated hemidiaphragm with by basilar consolidation and small effusion stable. Postopera tive change. Heart size stable. Cannot exclude a small amount of pneumomediastinum. IMPRESSION: 1. Postoperative changes with bibasilar consolidation and small effusion stable likely in the basis o f postoperative atelectasis.
[2020-04-02] MEDS: IPRATROPIUM-ALBUTEROL 3 ML NEB INHALATION SCH ×4 (09:02→20:00)
--- NOTE | 2020-04-02 09:28 | P.PN ---
Subjective Progress Note Date: 04/02/20 Principal diagnosis: Coronary artery disease, status post four-vessel bypass grafting On 04/02/2020 patient is seen in follow-up in the intensive care unit, today is postoperative day #2, status post four-vessel coronary artery bypass grafting with MATTHEWS to the LAD, reverse SVG to the diagonal, SVG to the RCA, to the PDA with right greater saphenous vein endoscopic vein harvesting, and clip ligation of the left atrial appendage with a 35 mm ATriclip. Patient is doing well, he is sitting up in the recliner, he is on room air, in no acute distress, Sox is 93%, hemodynamically stable, he is on lactated Ringer's at a rate of 20 ML per hour. No other drips. Hemodynamically patient has been stable. He is in sinus mechanism with a rate of 80 bpm. His Marrero catheter has been discontinued, CT surgery is planning on removing the Cordis and the a line, his PA catheter was discontinued yesterday, he still has a mediastinal and left pleural chest tubes Y connected as been 330 ML of thin serosanguineous output in the last 24 hours. No evidence of air leak was noted. Lung sounds are clear, no rhonchi, no wheezes no crackles. Today's chest x-ray reviewed, showing postoperative changes with bibasilar consolidation and small effusion. Today's labs have been reviewed, white blood cell count is 11.9, hemoglobin is 9.9, sodium is 133, the rest of the chest was were within normal limits, B1 is 22 creatinine 0.66 Objective - Vital Signs Vital signs: Vital Signs Temp 98.7 F 04/02/20 04:00 Pulse 82 04/02/20 09:14 Resp 16 04/02/20 07:00 BP 125/59 04/02/20 07:00 Pulse Ox 93 L 04/02/20 07:00 Intake & Output 04/01/20 04/02/20 04/02/20 18:59 06:59 18:59 Intake Total 844.449 307 23 Output Total 625 550 0 Balance 219.449 -243 23 Weight 88 kg 86.6 kg Intake: IV 837 307 23 Albumin 5% 250 CO/CI injectate 30 Lactated Ringers 1,000 ml 470 250 20 @ 20 mls/hr IV .Q24H [facility] Rx#:[id number] Nitroglycerin-D5w Pmx 50 3 mg In Dextrose/Water 1 250ml.bag @ Per Protocol IV ONCE ONE Rx#:[id number] Pressure Bag 84 57 3 Intake, IV Titration 7.449 Amount Insulin Regular 100 unit 7.449 In Sodium Chloride 0.9% 100 ml @ Per Protocol IV .Q0M [facility] Rx#:[id number] Output: Chest Tube Drainage 160 170 Chest Tube Left Pleural/ 160 170 Mediastinal Urine 465 380 0 Other: Voiding Method Indwelling Catheter Indwelling Catheter ABP, PAP, CO, CI - Last Documented Arterial Blood Pressure 127/50 Pulmonary Artery Pressure 15/2 Cardiac Output 5.5 Cardiac Index 2.7 - Exam GENERAL EXAM: Alert, very pleasant, 74-year-old white male, on room air, with a pulse ox of 93% sitting up in the recliner, comfortable in no apparent distress. HEAD: Normocephalic/atraumatic. EYES: Normal reaction of pupils, equal size. Conjunctiva pink, sclera white. NOSE: Clear with pink turbinates. THROAT: No erythema or exudates. NECK: No masses, no JVD, no thyroid enlargement, no adenopathy. CHEST: No chest wall deformity. Symmetrical expansion. Midsternal incision is clean dry and intact, covered with surgical dressing, mediastinal and left pleural chest tube sites are clean dry and intact LUNGS: Equal air entry with no crackles, wheeze, rhonchi or dullness. CVS: Regular rate and rhythm, normal S1 and S2, no gallops, no murmurs, no rubs ABDOMEN: Soft, nontender. No hepatosplenomegaly, normal bowel sounds, no guarding or rigidity. EXTREMITIES: No clubbing, no edema, no cyanosis, 2+ pulses and upper and lower extremities. MUSCULOSKELETAL: Muscle strength and tone normal. SPINE: No scoliosis or deformity SKIN: No rashes, right leg endoscopic harvest site incision covered with a surgical dressing, clean dry and intact CENTRAL NERVOUS SYSTEM: Alert and oriented -3. No focal deficits, tone is normal in all 4 extremities. PSYCHIATRIC: Alert and oriented -3. Appropriate affect. Intact judgment and insight. - Labs CBC & Chem 7: 04/02/20 04:48 04/02/20 04:48 Labs: Abnormal Lab Results - Last 24 Hours (Table) 04/01/20 04/01/20 04/01/20 Range/Units 09:23 10:13 11:54 WBC (3.8-10.6) k/uL RBC (4.30-5.90) m/uL Hgb (13.0-17.5) gm/dL Hct (39.0-53.0) % Plt Count (150-450) k/uL Neutrophils # (1.3-7.7) k/uL Sodium (137-145) mmol/L BUN (9-20) mg/dL Glucose (74-99) mg/dL POC Glucose (mg/dL) 140 H 141 H 117 H (75-99) mg/dL Calcium (8.4-10.2) mg/dL AST (17-59) U/L Total Protein (6.3-8.2) g/dL Albumin (3.5-5.0) g/dL 04/01/20 04/01/20 04/01/20 Range/Units 14:03 15:56 17:09 WBC (3.8-10.6) k/uL RBC (4.30-5.90) m/uL Hgb (13.0-17.5) gm/dL Hct (39.0-53.0) % Plt Count (150-450) k/uL Neutrophils # (1.3-7.7) k/uL Sodium (137-145) mmol/L BUN (9-20) mg/dL Glucose (74-99) mg/dL POC Glucose (mg/dL) 140 H 135 H 128 H (75-99) mg/dL Calcium (8.4-10.2) mg/dL AST (17-59) U/L Total Protein (6.3-8.2) g/dL Albumin (3.5-5.0) g/dL 04/01/20 04/02/20 04/02/20 Range/Units 20:14 04:48 04:48 WBC 11.9 H (3.8-10.6) k/uL RBC 3.28 L (4.30-5.90) m/uL Hgb 9.9 L (13.0-17.5) gm/dL Hct 29.8 L (39.0-53.0) % Plt Count 130 L (150-450) k/uL Neutrophils # 9.7 H (1.3-7.7) k/uL Sodium 133 L (137-145) mmol/L BUN 22 H (9-20) mg/dL Glucose 107 H (74-99) mg/dL POC Glucose (mg/dL) 121 H (75-99) mg/dL Calcium 7.8 L (8.4-10.2) mg/dL AST 100 H (17-59) U/L Total Protein 5.1 L (6.3-8.2) g/dL Albumin 3.2 L (3.5-5.0) g/dL 04/02/20 Range/Units 07:09 WBC (3.8-10.6) k/uL RBC (4.30-5.90) m/uL Hgb (13.0-17.5) gm/dL Hct (39.0-53.0) % Plt Count (150-450) k/uL Neutrophils # (1.3-7.7) k/uL Sodium (137-145) mmol/L BUN (9-20) mg/dL Glucose (74-99) mg/dL POC Glucose (mg/dL) 127 H (75-99) mg/dL Calcium (8.4-10.2) mg/dL AST (17-59) U/L Total Protein (6.3-8.2) g/dL Albumin (3.5-5.0) g/dL Assessment and Plan Plan: Assessment: #1. Symptomatic multivessel coronary artery disease, status post four-vessel bypass grafting, with the MATTHEWS to the LAD, reverse SVG to the diagonal, SVG to the RCA, and PDA with right greater saphenous vein endoscopic vein harvesting, clip ligation of the left atrial appendage with a 35 mm H clip and intraoperative FRANCISCO, postoperative day #2 #2. Routine postoperative ventilator management, with extubation at 6 hours post surgery #3. Acute blood loss anemia, expected outcome of bypass grafting surgery #4. History of hypertension #5. History of hyperlipidemia #6. History of coronary artery disease #7. History of skin cancer #8. Hypothyroidism #9. Benign prostatic hypertrophy Plan: Patient is doing well, hemodynamically stable, in sinus mechanism, no difficulty breathing, he is on room air, he is working on incentive spirometer, achieving 1000 09/26/1947 on it today. Lung sounds are clear, today's chest x-ray has been reviewed showing bibasilar consolidation, and small pleural effusion. Tolerating ambulation, no acute events overnight, his PA catheter was removed yesterday, Cordis and a line will be removed today, we'll continue to closely follow with CT surgery, no acute events overnight. I performed a history & physical examination of the patient and discussed their management with my nurse practitioner, Noemí Valentine. I reviewed the nurse practitioner's note and agree with the documented findings and plan of care. Lung sounds are positive for diminished breath sounds. The findings and the impression was discussed with the patient. I attest to the documentation by the nurse practitioner. Time with Patient: Less than 30
--- NOTE | 2020-04-02 10:26 | P.PN ---
Subjective Progress Note Date: 04/02/20 Principal diagnosis: Coronary artery disease status post CABG This is a pleasant 74-year-old male past medical history significant for coronary artery disease with multivessel coronary artery disease, 99% mid LAD stenosis, 70% proximal OM1, 99% distal RCA and 99% mid PDA identified on heart catheterization 03/21/2020, preserved ejection fraction 55% on echo 03/13/2020, hyperlipidemia. He follows in the office with Dr. Asif in the office. We have been asked to see in consultation for cardiac care status post CABG. Patient is currently intubated status post bypass and only minimally responsive on ventilator. Per documentation patient had a MATTHEWS to LAD, SVG to diagonal, SVG to RCA and SVG to PDA performed. Blood pressures been stable with systolics in the 120s to 140s and pulmonary arterial pressures have been approximately 40/20. Per ICU staff, there was concern of dynamic EKG changes inferiorly and patient was placed on a nitroglycerin drip. Patient is on ventilator and oxygenating well on mechanical ventilation. 03/02/2020 Patient states that overall he is feeling well. He denies any chest pain or anginal type symptoms. He does have reproducible sternotomy pain. REVIEW OF SYSTEMS At the time of my exam: Denies any chest pain or pressure, shortness breath, nausea, vomiting or diarrhea PHYSICAL EXAMINATION Blood pressure 148/86 heart rate 71 afebrile and maintaining oxygen saturation on 97% on mechanical ventilation. CONSTITUTIONAL: No apparent distress, intubated and sedated, not responsive to verbal stimuli HEENT: Head is normocephalic. Pupils are equal, round. Sclerae anicteric. Mucous membranes of the mouth are moist. + Endotracheal tube, No JVD. No carotid bruit. CHEST EXAMINATION: Coarse breath sounds bilaterally, hourly diminished at bases, + chest tube bilaterally and sternotomy incision HEART EXAMINATION: Regular rate and rhythm. S1, S2 heard. No murmurs, gallops or rub. ABDOMEN: Soft, nontender. Positive bowel sounds. EXTREMITIES: 2+ peripheral pulses, no lower extremity edema and no calf tenderness. NEUROLOGIC EXAMINATION: Patient is sedated and intubated not responding to verbal stimuli ASSESSMENT 1. Coronary artery disease status post CABG postop day #2 with MATTHEWS to LAD, SVG to diagonal, SVG to RCA and SVG to PDA 2. Essential hypertension on home Imdur and Lopressor 3. Hyperlipidemia 4. Anemia and thrombocytopenia, likely related to surgery PLAN Continue aspirin, Plavix. Beta george, metoprolol was increased to 25 twice a day and continue with current regimen. Blood pressure appears controlled. Continue with Lipitor. Continue supportive care. Objective - Vital Signs Vital signs: Vital Signs Temp 98.7 F 04/02/20 04:00 Pulse 82 04/02/20 09:14 Resp 16 04/02/20 07:00 BP 125/59 04/02/20 07:00 Pulse Ox 93 L 04/02/20 07:00 Intake & Output 04/01/20 04/02/20 04/02/20 18:59 06:59 18:59 Intake Total 844.449 307 23 Output Total 625 550 0 Balance 219.449 -243 23 Weight 88 kg 86.6 kg Intake: IV 837 307 23 Albumin 5% 250 CO/CI injectate 30 Lactated Ringers 1,000 ml 470 250 20 @ 20 mls/hr IV .Q24H [facility] Rx#:[id number] Nitroglycerin-D5w Pmx 50 3 mg In Dextrose/Water 1 250ml.bag @ Per Protocol IV ONCE ONE Rx#:[id number] Pressure Bag 84 57 3 Intake, IV Titration 7.449 Amount Insulin Regular 100 unit 7.449 In Sodium Chloride 0.9% 100 ml @ Per Protocol IV .Q0M [facility] Rx#:[id number] Output: Chest Tube Drainage 160 170 Chest Tube Left Pleural/ 160 170 Mediastinal Urine 465 380 0 Other: Voiding Method Indwelling Catheter Indwelling Catheter ABP, PAP, CO, CI - Last Documented Arterial Blood Pressure 127/50 Pulmonary Artery Pressure 15/2 Cardiac Output 5.5 Cardiac Index 2.7 - Labs CBC & Chem 7: 04/02/20 04:48 04/02/20 04:48 Labs: Abnormal Lab Results - Last 24 Hours (Table) 04/01/20 04/01/20 04/01/20 Range/Units 10:13 11:54 14:03 WBC (3.8-10.6) k/uL RBC (4.30-5.90) m/uL Hgb (13.0-17.5) gm/dL Hct (39.0-53.0) % Plt Count (150-450) k/uL Neutrophils # (1.3-7.7) k/uL Sodium (137-145) mmol/L BUN (9-20) mg/dL Glucose (74-99) mg/dL POC Glucose (mg/dL) 141 H 117 H 140 H (75-99) mg/dL Calcium (8.4-10.2) mg/dL AST (17-59) U/L Total Protein (6.3-8.2) g/dL Albumin (3.5-5.0) g/dL 04/01/20 04/01/20 04/01/20 Range/Units 15:56 17:09 20:14 WBC (3.8-10.6) k/uL RBC (4.30-5.90) m/uL Hgb (13.0-17.5) gm/dL Hct (39.0-53.0) % Plt Count (150-450) k/uL Neutrophils # (1.3-7.7) k/uL Sodium (137-145) mmol/L BUN (9-20) mg/dL Glucose (74-99) mg/dL POC Glucose (mg/dL) 135 H 128 H 121 H (75-99) mg/dL Calcium (8.4-10.2) mg/dL AST (17-59) U/L Total Protein (6.3-8.2) g/dL Albumin (3.5-5.0) g/dL 04/02/20 04/02/20 04/02/20 Range/Units 04:48 04:48 07:09 WBC 11.9 H (3.8-10.6) k/uL RBC 3.28 L (4.30-5.90) m/uL Hgb 9.9 L (13.0-17.5) gm/dL Hct 29.8 L (39.0-53.0) % Plt Count 130 L (150-450) k/uL Neutrophils # 9.7 H (1.3-7.7) k/uL Sodium 133 L (137-145) mmol/L BUN 22 H (9-20) mg/dL Glucose 107 H (74-99) mg/dL POC Glucose (mg/dL) 127 H (75-99) mg/dL Calcium 7.8 L (8.4-10.2) mg/dL AST 100 H (17-59) U/L Total Protein 5.1 L (6.3-8.2) g/dL Albumin 3.2 L (3.5-5.0) g/dL
[2020-04-02] MEDS: traMADol 50 MG TAB PO PRN (11:09)
[2020-04-02] MEDS: METOPROLOL TARTRATE 25 MG TAB PO SCH ×2 (11:10→21:07)
[2020-04-02] MEDS: ATORVASTATIN 40 MG TAB PO SCH (11:11)
[2020-04-02] MEDS: ASPIRIN 325 MG TAB PO SCH (11:11)
[2020-04-02] MEDS: TROSPIUM CHLORIDE 20 MG TABLET PO SCH (11:12)
[2020-04-02] MEDS: CLOPIDOGREL 75 MG TAB PO SCH (11:15)
[2020-04-02] MEDS: HEPARIN SODIUM,PORCINE 5,000 UNIT/ML 1 ML VIAL SQ SCH ×2 (11:15→15:40)
[2020-04-02] MEDS: MULTIVITAMINS, THERA 1 EACH TAB PO SCH (11:15)
[2020-04-02] MEDS: MUPIROCIN 2% OINT 22 GM TUBE NASAL SCH ×2 (11:16→21:07)
[2020-04-02] MEDS: LACTATED RINGERS 1,000 ML IV SCH (11:17)
--- NOTE | 2020-04-02 12:09 | P.PN ---
Subjective Progress Note Date: 04/02/20 Principal diagnosis: Coronary artery disease. 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 POD #2 Coronary artery bypass grafting x4 with left internal mammary artery to left anterior descending artery, reverse saphenous vein grafts off the artery to the diagonal artery, right coronary artery and the posterior descending artery with right greater saphenous vein endoscopic vein harvesting, clip ligation of the left atrial appendage with a 35 mm AtriClip and intraoperative FRANCISCO. The patient was seen and examined sitting up in the chair in the intensive care unit in no acute distress. States pain is controlled on current medication regimen, denies shortness of breath. Remains in normal sinus rhythm and hemodynamically stable on no inotropes or pressors. No new concerns Objective - Vital Signs Vital signs: Vital Signs Temp 98.4 F 04/02/20 08:00 Pulse 80 04/02/20 10:00 Resp 12 04/02/20 10:00 BP 116/62 04/02/20 10:00 Pulse Ox 93 L 04/02/20 10:00 Intake & Output 04/01/20 04/02/20 04/02/20 18:59 06:59 18:59 Intake Total 844.449 307 23 Output Total 625 550 0 Balance 219.449 -243 23 Weight 88 kg 86.6 kg Intake: IV 837 307 23 Albumin 5% 250 CO/CI injectate 30 Lactated Ringers 1,000 ml 470 250 20 @ 20 mls/hr IV .Q24H [facility] Rx#:[id number] Nitroglycerin-D5w Pmx 50 3 mg In Dextrose/Water 1 250ml.bag @ Per Protocol IV ONCE ONE Rx#:[id number] Pressure Bag 84 57 3 Intake, IV Titration 7.449 Amount Insulin Regular 100 unit 7.449 In Sodium Chloride 0.9% 100 ml @ Per Protocol IV .Q0M [facility] Rx#:[id number] Output: Chest Tube Drainage 160 170 Chest Tube Left Pleural/ 160 170 Mediastinal Urine 465 380 0 Other: Voiding Method Indwelling Catheter Indwelling Catheter ABP, PAP, CO, CI - Last Documented Arterial Blood Pressure 120/49 Pulmonary Artery Pressure 15/2 Cardiac Output 5.5 Cardiac Index 2.7 - Constitutional General appearance: Present: cooperative, no acute distress - Respiratory Details: Lung sounds diminished bilaterally. Respiration even, non-labored. Currently on room air with oxygen saturation 91-92%. Able to achieve 1000 mL on his inc entive spirometry. Strong cough. Left pleural and mediastinal chest tube present to continuous wall suction, 90 mL serosanguinous drainage overnight, 340 mL in the last 24 hours. No air leaks present. - Cardiovascular Details: S1/S2 present. Regular rate and rhythm on telemetry. Sternum stable. A/V epicardial wires present, grounded. Palpable peripheral pulses bilaterally, no edema present. Heart hugger in place with patient demonstrating appropriate use. Antiembolism stockings, SCDs presnt. - Gastrointestinal Gastrointestinal Comment(s): Abdomen soft, non-tender, non-distended. Active bowel sounds x 4 quadrants. Tolerating diet. Positive belching, negative flatus - Genitourinary Genitourinary Comment(s): Marrero discontinued this morning, due to void - Integumentary Integumentary Comment(s): Skin is warm and dry with evidence of good perfusion. Anterior chest incision well approximated and covered with dry intact dressing. Left lower extremity EVH site well approximated - Neurologic Neurologic: Present: CNII-XII intact - Musculoskeletal Musculoskeletal: Present: gait normal, strength equal bilaterally - Psychiatric Psychiatric: Present: A&O x's 3, appropriate affect, intact judgment & insight - Allied health notes Allied health notes reviewed: nursing - Labs CBC & Chem 7: 04/02/20 04:48 04/02/20 04:48 Labs: Abnormal Lab Results - Last 24 Hours (Table) 04/01/20 04/01/20 04/01/20 Range/Units 11:54 14:03 15:56 WBC (3.8-10.6) k/uL RBC (4.30-5.90) m/uL Hgb (13.0-17.5) gm/dL Hct (39.0-53.0) % Plt Count (150-450) k/uL Neutrophils # (1.3-7.7) k/uL Sodium (137-145) mmol/L BUN (9-20) mg/dL Glucose (74-99) mg/dL POC Glucose (mg/dL) 117 H 140 H 135 H (75-99) mg/dL Calcium (8.4-10.2) mg/dL AST (17-59) U/L Total Protein (6.3-8.2) g/dL Albumin (3.5-5.0) g/dL 04/01/20 04/01/20 04/02/20 Range/Units 17:09 20:14 04:48 WBC 11.9 H (3.8-10.6) k/uL RBC 3.28 L (4.30-5.90) m/uL Hgb 9.9 L (13.0-17.5) gm/dL Hct 29.8 L (39.0-53.0) % Plt Count 130 L (150-450) k/uL Neutrophils # 9.7 H (1.3-7.7) k/uL Sodium (137-145) mmol/L BUN (9-20) mg/dL Glucose (74-99) mg/dL POC Glucose (mg/dL) 128 H 121 H (75-99) mg/dL Calcium (8.4-10.2) mg/dL AST (17-59) U/L Total Protein (6.3-8.2) g/dL Albumin (3.5-5.0) g/dL 04/02/20 04/02/20 Range/Units 04:48 07:09 WBC (3.8-10.6) k/uL RBC (4.30-5.90) m/uL Hgb (13.0-17.5) gm/dL Hct (39.0-53.0) % Plt Count (150-450) k/uL Neutrophils # (1.3-7.7) k/uL Sodium 133 L (137-145) mmol/L BUN 22 H (9-20) mg/dL Glucose 107 H (74-99) mg/dL POC Glucose (mg/dL) 127 H (75-99) mg/dL Calcium 7.8 L (8.4-10.2) mg/dL AST 100 H (17-59) U/L Total Protein 5.1 L (6.3-8.2) g/dL Albumin 3.2 L (3.5-5.0) g/dL - Imaging and Cardiology Chest x-ray: report reviewed, image reviewed Assessment and Plan Assessment: 1. Multvessel coronary artery disease, status post four-vessel CABG 2. History of hyperlipidemia, treated 3. Hypothyroid. 4. BPH. 5. Family history of premature coronary artery disease 6. Lifelong nonsmoker 7. Preoperative nasal swab positive for MSSA Plan: 1. Continue aspirin, statin, Plavix, beta george therapy. Will increase beta george as tolerated, to 25 mg twice daily today 2. Encourage incentive spirometry 10 times every hour while awake. Bronchodilators per pulmonology 3. Increase activity, ambulate as tolerated. PT/OT/cardiac rehab following 4. Will monitor daily labs, x-rays. Electrolyte replacement per protocol. No transfusion at this point 5. Pain control with current medication regimen 6. GI/DVT prophylaxis 7. Insulin management per primary care. Patient is not a diabetic, preoperative hemoglobin A1c 5.1% 8. Atrial epicardial wires discontinued. Mediastinal chest tube discontinued. Will keep left pleural chest tube for another 24 hours and monitor output 9. Marrero catheter discontinued. May bladder scan and straight cath for greater than 300 mL [address] transfers for 3 cells cardiac stepdown unit. May transfer when bed available 11. More recommendations to follow based on patients clinical course. Time with Patient: Greater than 30
[2020-04-02] MEDS: DEXTROSE 5% IN WATER 100 ML with AMIODARONE 150 MG IV PRN ×3 (13:30→15:15)
[2020-04-02] MEDS: ONDANSETRON 4 MG/2 ML VIAL IVP PRN (16:28)
[2020-04-02 16:40] LABS: Glucose,Whole Blood 139 mg/dL (75-99)
--- NOTE | 2020-04-02 20:01 | P.PN ---
Subjective This is a 74 years old male with multiple medical problems including coronary artery disease, unstable angina, hyperlipidemia, hypothyroidism, Thu and cardiac cath on 03/21 showing severe triple vessel coronary artery disease Patient underwent coronary artery bypass surgery. Today is postoperative day #1. This is a status post extubation today as well. His sitting in chair comfortable not in distress Blood pressure 123/56, heart rate 80, saturating oxygen is 97% on 2 L oxygen Left showing leukocytosis of 13.2 K, rest of BMP is unremarkable sugar control. Chest x-ray showing basilar atelectasis. Patient is currently on aspirin 325 mg, also patient is on clevidsipine drip 04/02/2020 Patient is awake and alert, is status post extubation yesterday. He denies any specific complaints. No reported chest pain or dyspnea. He is hemodynamically stable. He is off clevidipine drip labs reviewed and it looks stable as well. Remains on aspirin and Plavix, metoprolol 25 mg is added today. Review of systems CONSTITUTIONAL: No fever, no malaise, no fatigue. HEENT: No recent visual problems or hearing problems. Denied any sore throat. CARDIOVASCULAR: No orthopnea, PND, no palpitations, no syncope. PULMONARY: No shortness of breath, no cough, no hemoptysis. GASTROINTESTINAL: No diarrhea, no nausea, no vomiting, no abdominal pain. Normoactive bowel sounds. NEUROLOGICAL: No headaches, no weakness, no numbness. Active Medications Generic Name Dose Route Start Last Admin Trade Name Freq PRN Reason Stop Dose Admin Acetaminophen 325 mg 04/01/20 08:03 Tylenol Tab PO Q6HR PRN Fever and/ or Pain Albuterol/Ipratropium 3 ml 03/31/20 14:49 Duoneb 0.5 Mg-3 Mg/3 Ml Soln INHALATION RT-Q2H PRN Shortness Of Breath Or Wheezing Albuterol/Ipratropium 3 ml 03/31/20 18:37 04/02/20 16:51 Duoneb 0.5 Mg-3 Mg/3 Ml Soln INHALATION 3 ml RT-QID JOSE Administration Aspirin 325 mg 04/01/20 09:00 04/02/20 11:11 Aspirin PO 325 mg DAILY JOSE Administration Atorvastatin Calcium 40 mg 04/01/20 09:00 04/02/20 11:11 Lipitor PO 40 mg DAILY JOSE Administration Benzocaine/Menthol 1 each 03/31/20 14:49 Cepacol Lozenge MUCOUS MEM Q2H PRN Sore Throat Bisacodyl 10 mg 04/01/20 09:00 Dulcolax RECTAL DAILY PRN Constipation Clopidogrel Bisulfate 75 mg 04/01/20 09:00 04/02/20 11:15 Plavix PO 75 mg DAILY JOSE Administration Heparin Sodium (Porcine) 5,000 unit 03/31/20 21:00 04/02/20 15:40 Heparin SQ 5,000 unit Q8HR JOSE Administration Hydralazine HCl 10 mg 03/31/20 14:49 Apresoline IVP Q1H PRN Blood Pressure - High Amiodarone HCl 150 mg/ 103 mls @ 618 mls/hr 03/31/20 14:49 04/02/20 15:15 Dextrose/Water IV 618 mls/hr .Q10M PRN Administration A.FIB/FLUTTER Protocol Amiodarone HCl 360 mg/ 200 mls @ 33.333 mls/hr 03/31/20 14:49 04/02/20 13:30 Dextrose/Water IV 1 mg/min .Q6H PRN 33.333 mls/hr A.FIB/FLUTTER Administration Protocol 1 MG/MIN Amiodarone HCl 300 mg/ 250 mls @ 25 mls/hr 03/31/20 14:49 04/02/20 19:23 Dextrose/Water IV 0.5 mg/min .Q10H PRN 25 mls/hr A.FIB/FLUTTER Administration Protocol 0.5 MG/MIN Insulin Aspart 0 unit 04/01/20 12:30 04/02/20 16:49 Novolog SQ 1 unit ACHS JOSE Administration Protocol Ketorolac Tromethamine 15 mg 03/31/20 18:00 04/02/20 16:46 Toradol IVP 04/03/20 16:10 Not Given Q6HR JOSE Levothyroxine Sodium 125 mcg 04/01/20 06:30 04/02/20 07:10 Synthroid PO 125 mcg 0630 JOSE Administration Magnesium Hydroxide 2,400 mg 04/01/20 09:00 Milk Of Magnesia PO BID PRN Constipation Metoclopramide HCl 10 mg 03/31/20 14:49 04/02/20 16:43 Reglan IVP 10 mg Q4H PRN Administration Nausea And Vomiting Metoprolol Tartrate 25 mg 04/02/20 09:00 04/02/20 11:10 Lopressor PO 25 mg BID JOSE Administration Miscellaneous Information 1 each 03/31/20 14:49 Magnesium Per Protocol MISCELLANE DAILY PRN Per Protocol Protocol Miscellaneous Information 1 each 03/31/20 14:49 Phosphorus Per Protocol MISCELLANE DAILY PRN Per Protocol Protocol Miscellaneous Information 1 each 03/31/20 14:49 Potassium Per Protocol MISCELLANE DAILY PRN Per Protocol Protocol Multivitamins 1 each 04/01/20 09:00 04/02/20 11:15 Theragran PO 1 each DAILY JOSE Administration Mupirocin 1 applic 03/31/20 21:00 04/02/20 11:16 Bactroban Oint NASAL 1 applic BID JOSE Administration Ondansetron HCl 4 mg 03/31/20 14:49 04/02/20 16:28 Zofran IVP 4 mg Q6HR PRN Administration Nausea And Vomiting Pantoprazole Sodium 40 mg 04/02/20 07:30 04/02/20 07:10 Protonix PO 40 mg [id number] JOSE Administration Senna/Docusate Sodium 2 each 04/01/20 21:00 04/01/20 20:15 Senokot-S PO 2 each HS JOSE Administration Sodium Chloride 10 ml 03/31/20 21:00 04/02/20 11:16 Saline Flush IV 10 ml BID JOSE Administration Tamsulosin HCl 0.4 mg 03/31/20 21:00 04/01/20 20:15 Flomax PO 0.4 mg HS JOSE Administration Tramadol HCl 50 mg 04/01/20 08:01 04/02/20 11:09 Ultram PO 50 mg Q6HR PRN Administration Pain Trospium 20 mg 04/01/20 09:00 04/02/20 11:12 Sanctura PO 20 mg DAILY JOSE Administration Objective - Vital Signs Vital signs: Vital Signs Temp 98.3 F 04/02/20 16:00 Pulse 81 04/02/20 18:00 Resp 13 04/02/20 18:00 BP 109/64 04/02/20 18:00 Pulse Ox 93 L 04/02/20 18:00 Intake & Output 04/02/20 04/02/20 04/03/20 06:59 18:59 06:59 Intake Total 307 123 Output Total 550 45 Balance -243 78 Weight 86.6 kg Intake: IV 307 123 Lactated Ringers 1,000 ml 250 120 @ 20 mls/hr IV .Q24H [facility] Rx#:[id number] Pressure Bag 57 3 Output: Chest Tube Drainage 170 45 Chest Tube Left Pleural/ 170 45 Mediastinal Urine 380 0 Other: Voiding Method Indwelling Catheter ABP, PAP, CO, CI - Last Documented Arterial Blood Pressure 120/49 Pulmonary Artery Pressure 15/2 Cardiac Output 5.5 Cardiac Index 2.7 - Exam GENERAL: The patient is is intubated and sedated HEENT: Pupils are round and equally reacting to light. EOMI. No scleral icterus. No conjunctival pallor. Normocephalic, atraumatic. No pharyngeal erythema. No t hyromegaly. -CARDIOVASCULAR: S1 and S2 present. No murmurs, rubs, or gallops. Surgical wound is closed in dressing is in place PULMONARY: Chest is clear to auscultation, no wheezing or crackles. ABDOMEN: Soft, nontender, nondistended, normoactive bowel sounds. No palpable organomegaly. MUSCULOSKELETAL: No joint swelling or deformity. EXTREMITIES: No cyanosis, clubbing, or pedal edema. NEUROLOGICAL: Gross neurological examination did not reveal any focal deficits. SKIN: No rashes. No petechiae - Labs CBC & Chem 7: 04/02/20 04:48 04/02/20 04:48 Labs: Abnormal Lab Results - Last 24 Hours (Table) 04/01/20 04/02/20 04/02/20 Range/Units 20:14 04:48 04:48 WBC 11.9 H (3.8-10.6) k/uL RBC 3.28 L (4.30-5.90) m/uL Hgb 9.9 L (13.0-17.5) gm/dL Hct 29.8 L (39.0-53.0) % Plt Count 130 L (150-450) k/uL Neutrophils # 9.7 H (1.3-7.7) k/uL Sodium 133 L (137-145) mmol/L BUN 22 H (9-20) mg/dL Glucose 107 H (74-99) mg/dL POC Glucose (mg/dL) 121 H (75-99) mg/dL Calcium 7.8 L (8.4-10.2) mg/dL AST 100 H (17-59) U/L Total Protein 5.1 L (6.3-8.2) g/dL Albumin 3.2 L (3.5-5.0) g/dL 04/02/20 04/02/20 Range/Units 07:09 16:38 WBC (3.8-10.6) k/uL RBC (4.30-5.90) m/uL Hgb (13.0-17.5) gm/dL Hct (39.0-53.0) % Plt Count (150-450) k/uL Neutrophils # (1.3-7.7) k/uL Sodium (137-145) mmol/L BUN (9-20) mg/dL Glucose (74-99) mg/dL POC Glucose (mg/dL) 127 H 139 H (75-99) mg/dL Calcium (8.4-10.2) mg/dL AST (17-59) U/L Total Protein (6.3-8.2) g/dL Albumin (3.5-5.0) g/dL Assessment and Plan Assessment: Triple-vessel Coronary artery disease status post coronary artery bypass surgery. Essential hypertension Hyperlipidemia Acute blood loss anemia secondary to surgery Hypothyroidism Hyperlipidemia Plan: This is a pleasant 74 years old male status post CABG for his CAD. Continue with aspirin and Plavix, continue with metoprolol. Patient for emergency room consultants including pulmonary/critical care team, cardiology are following the patient closely. Labs and medication were reviewed.. Continue same treatment. Continue with symptomatic treatment. Resume home medication. Monitor lytes and vitals. DVT and GI prophylaxis. Further recommendations of the clinical course of the patient DVT prophylaxis: Subcutaneous heparin GI Prophylaxis: Pepcid PT/OT: Pending Thank you for consulting us
[2020-04-02 20:42] LABS: Glucose,Whole Blood 117 mg/dL (75-99)
[2020-04-02] MEDS: SENNOSIDES-DOCUSATE SODIUM 1 EACH TAB PO SCH (21:07)
[2020-04-02] MEDS: CAPSAICIN 0.025% CREAM 60 GM TUBE TOPICAL SCH (21:07)
[2020-04-02] MEDS: TAMSULOSIN 0.4 MG CAP.ER.24H PO SCH (21:07)
[2020-04-03] MEDS: KETOROLAC 15 MG/ML 1 ML VIAL IVP SCH ×3 (01:29→12:17)
[2020-04-03] MEDS: HEPARIN SODIUM,PORCINE 5,000 UNIT/ML 1 ML VIAL SQ SCH ×4 (01:30→23:44)
[2020-04-03 05:49] LABS: Basophils % (A) 0 %; Eosinophils # (A) 0.1 k/uL (0-0.7); Eosinophils % (A) 0 %; HCT 30.9 % (39.0-53.0); HGB 10.2 gm/dL (13.0-17.5); Lymphocytes # (A) 1.3 k/uL (1.0-4.8); Lymphocytes % (A) 9 %; MCHC 33.1 g/dL (31.0-37.0); MCV 90.7 fL (80.0-100.0); Mean Platelet Volume 8.9; Monocytes # (A) 0.8 k/uL (0-1.0); Monocytes % (A) 6 %; Neutrophils % (A) 82 %; Platelet Count 155 k/uL (150-450); RBC 3.41 m/uL (4.30-5.90); RDW 13.3 % (11.5-15.5); WBC 14.6 k/uL (3.8-10.6)
[2020-04-03] MEDS: PANTOPRAZOLE 40 MG TABLET PO SCH (06:04)
[2020-04-03] MEDS: LEVOTHYROXINE 125 MCG TAB PO SCH (06:04)
[2020-04-03 06:29] LABS: ALT 17 U/L (4-49); AST 52 U/L (17-59); African American GFR (CKD) >90 (>60 ml/min/1.73 sqM); Albumin 3.3 g/dL (3.5-5.0); Alkaline Phosphatase 62 U/L (38-126); Anion Gap 7 mmol/L; Blood Urea Nitrogen 20 mg/dL (9-20); Calcium 7.9 mg/dL (8.4-10.2); Carbon Dioxide 26 mmol/L (22-30); Chloride 100 mmol/L (98-107); Glucose 108 mg/dL (74-99); Non-African American GFR(CKD) >90 (>60 ml/min/1.73 sqM); Potassium 4.5 mmol/L (3.5-5.1); Sodium 133 mmol/L (137-145); Total Bilirubin 0.9 mg/dL (0.2-1.3); Total Protein 5.5 g/dL (6.3-8.2)
[2020-04-03] MEDS: INSULIN ASPART (NovoLOG) 100 UNIT/ML VIAL SQ SCH ×4 (06:45→21:14)
--- NOTE | 2020-04-03 06:55 | XR ---
EXAMINATION TYPE: XR chest 1V portable DATE OF EXAM: 04/03/2020 CLINICAL HISTORY: Tube placement TECHNIQUE: Portable upright view of the chest COMPARISON: 04/02/2020 chest radiograph FINDINGS: Sternotomy wires and left atrial appendage clip. Redemonstrated left-sided chest tube. Int erval removal of mediastinal drain. Likely right internal jugular [place]-Pati sheath. Mild elevation of the left hemidiaphragm. Heart size unchanged. Mildly improved atelectasis of the bilateral lung base s. Persistent small bilateral pleural effusions. No pneumothorax. IMPRESSION: 1. Interval removal of mediastinal drain. Persistent left-sided chest tube. No evidence of pneumothor ax. 2. Small bilateral pleural effusions.
[2020-04-03] MEDS ORDERED: FUROSEMIDE 10 MG/ML 2 ML VIAL IV STA (07:09)
--- NOTE | 2020-04-03 07:53 | P.PN ---
Subjective Progress Note Date: 04/03/20 Principal diagnosis: Coronary artery disease. 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 POD #3 Coronary artery bypass grafting x4 with left internal mammary artery to left anterior descending artery, reverse saphenous vein grafts off the artery to the diagonal artery, right coronary artery and the posterior descending artery with right greater saphenous vein endoscopic vein harvesting, clip ligation of the left atrial appendage with a 35 mm AtriClip and intraoperative FRANCISCO. Postoperative A. fib with RVR, unexpected but common outcome of cardiac surgery, currently sinus rhythm The patient was seen and examined sitting up in the chair in the intensive care unit in no acute distress. States pain is controlled on current medication regimen, denies shortness of breath. Does complain of lack of sleep. Remains in normal sinus rhythm, no further episodes of A. fib, hemodynamically stable. Patient's Marrero was discontinued yesterday, he did have to have straight cath for residual after voiding. No other new concerns Objective - Vital Signs Vital signs: Vital Signs Temp 98.3 F 04/03/20 04:00 Pulse 72 04/03/20 07:00 Resp 13 04/03/20 07:00 BP 138/77 04/03/20 07:00 Pulse Ox 93 L 04/03/20 07:00 Intake & Output 04/02/20 04/03/20 04/03/20 18:59 06:59 18:59 Intake Total 1109.5 373.3 20 Output Total 430 750 0 Balance 679.5 -376.7 20 Intake: IV 243 340 20 Amiodarone 300 mg In 100 Dextrose 5% in Water 250 ml @ 0.5 MG/MIN 25 mls/hr IV .Q10H PRN Rx#: [id number] Lactated Ringers 1,000 ml 240 240 20 @ 20 mls/hr IV .Q24H JO[facility] Rx#:[id number] Pressure Bag 3 Intake, IV Titration 466.5 33.3 Amount Amiodarone 360 mg In 166.5 33.3 Dextrose 5% in Water 200 ml @ 1 MG/MIN 33.333 mls/ hr IV .Q6H PRN Rx#: [id number] Dextrose 5% in Water 100 300 ml @ 618 mls/hr IV .Q10M PRN with Amiodarone 150 mg Rx#:[id number] Oral 400 Output: Chest Tube Drainage 80 100 Chest Tube Left Pleural/ 80 100 Mediastinal Urine 350 650 0 Other: # Voids 0 0 ABP, PAP, CO, CI - Last Documented Arterial Blood Pressure 120/49 Pulmonary Artery Pressure 15/2 Cardiac Output 5.5 Cardiac Index 2.7 - Constitutional General appearance: Present: cooperative, no acute distress - Respiratory Details: Lung sounds diminished bilaterally. Respiration even, non-labored. Currently on room air with oxygen saturation 93%. Able to achieve 5853-7509 mL on his incentive spirometry. Strong cough. Left pleural chest tube present to continuous wall suction, 90 mL serosanguinous drainage overnight, 210 mL in the last 24 hours. No air leaks present. - Cardiovascular Details: S1/S2 present. Regular rate and rhythm on telemetry. Sternum stable. Ventricular epicardial wire present, grounded. Palpable peripheral pulses bilaterally, trace bilateral lower extremity edema present. Heart hugger in place with patient demonstrating appropriate use. Antiembolism stockings, SCDs presnt. - Gastrointestinal Gastrointestinal Comment(s): Abdomen soft, non-tender, non-distended. Active bowel sounds x 4 quadrants. Tolerating diet. Positive belching, negative flatus - Genitourinary Genitourinary Comment(s): Marrero discontinued yesterday. Patient does straight cath this afternoon, he did void 100 mL last night and then was straight cathed for 500 mL - Integumentary Integumentary Comment(s): Skin is warm and dry with evidence of good perfusion. Anterior chest incision well approximated and covered with dry intact dressing. Left lower extremity EVH site well approximated - Neurologic Neurologic: Present: CNII-XII intact - Musculoskeletal Musculoskeletal: Present: gait normal, strength equal bilaterally - Psychiatric Psychiatric: Present: A&O x's 3, appropriate affect, intact judgment & insight - Allied health notes Allied health notes reviewed: nursing - Labs CBC & Chem 7: 04/03/20 05:18 04/03/20 05:18 Labs: Abnormal Lab Results - Last 24 Hours (Table) 04/02/20 04/02/20 04/03/20 Range/Units 16:38 20:41 05:18 WBC 14.6 H (3.8-10.6) k/uL RBC 3.41 L (4.30-5.90) m/uL Hgb 10.2 L (13.0-17.5) gm/dL Hct 30.9 L (39.0-53.0) % Neutrophils # 12.0 H (1.3-7.7) k/uL Sodium (137-145) mmol/L Glucose (74-99) mg/dL POC Glucose (mg/dL) 139 H 117 H (75-99) mg/dL Calcium (8.4-10.2) mg/dL Total Protein (6.3-8.2) g/dL Albumin (3.5-5.0) g/dL 04/03/20 Range/Units 05:18 WBC (3.8-10.6) k/uL RBC (4.30-5.90) m/uL Hgb (13.0-17.5) gm/dL Hct (39.0-53.0) % Neutrophils # (1.3-7.7) k/uL Sodium 133 L (137-145) mmol/L Glucose 108 H (74-99) mg/dL POC Glucose (mg/dL) (75-99) mg/dL Calcium 7.9 L (8.4-10.2) mg/dL Total Protein 5.5 L (6.3-8.2) g/dL Albumin 3.3 L (3.5-5.0) g/dL - Imaging and Cardiology Chest x-ray: report reviewed, image reviewed Assessment and Plan Assessment: 1. Multvessel coronary artery disease, status post four-vessel CABG 2. History of hyperlipidemia, treated 3. Hypothyroid. 4. BPH. 5. Family history of premature coronary artery disease 6. Lifelong nonsmoker 7. Preoperative nasal swab positive for MSSA 8. Postoperative A. fib with RVR, currently sinus, status post clip ligation of the left atrial appendage Plan: 1. Continue aspirin, statin, Plavix, beta george therapy. Will increase beta george as tolerated 2. Continue amiodarone for A. fib prophylaxis, will transition to oral amiodarone today. No anticoagulation unless in atrial fibrillation greater than 24 hours 3. Encourage incentive spirometry 10 times every hour while awake. Bronchodilators per pulmonology 4. Increase activity, ambulate as tolerated. PT/OT/cardiac rehab following 5. Will monitor daily labs, x-rays. Electrolyte replacement per protocol. No transfusion at this point 6. Pain control with current medication regimen 7. GI/DVT prophylaxis 8. Insulin management per primary care. Patient is not a diabetic, preoperative hemoglobin A1c 5.1% 9. Will discontinue ventricular epicardial wire. Will discontinue left pleural chest tube 10. Will give IV Lasix today. May bladder scan and straight cath for greater than [address] transfers for [facility] cardiac stepdown unit. May transfer when bed available 12. Discharge planning in progress. Anticipate discharge to home with home care this weekend 13. More recommendations to follow based on patients clinical course. Time with Patient: Greater than 30
[2020-04-03] MEDS: MAGNESIUM HYDROXIDE 2,400 MG/10 ML CUP PO SCH (07:58)
[2020-04-03] MEDS: AMIODARONE 200 MG TAB PO SCH ×2 (08:12→21:21)
[2020-04-03] MEDS: ASPIRIN 325 MG TAB PO SCH (08:12)
[2020-04-03] MEDS: CAPSAICIN 0.025% CREAM 60 GM TUBE TOPICAL SCH ×3 (08:13→23:16)
[2020-04-03] MEDS: METOPROLOL TARTRATE 25 MG TAB PO SCH ×2 (08:13→21:21)
[2020-04-03] MEDS: MULTIVITAMINS, THERA 1 EACH TAB PO SCH (08:13)
[2020-04-03] MEDS: CLOPIDOGREL 75 MG TAB PO SCH (08:13)
[2020-04-03] MEDS: MUPIROCIN 2% OINT 22 GM TUBE NASAL SCH ×2 (08:13→21:23)
[2020-04-03] MEDS: ATORVASTATIN 40 MG TAB PO SCH (08:13)
[2020-04-03] MEDS: IPRATROPIUM-ALBUTEROL 3 ML NEB INHALATION SCH ×4 (08:30→20:20)
[2020-04-03] MEDS: TROSPIUM CHLORIDE 20 MG TABLET PO SCH (08:54)
--- NOTE | 2020-04-03 08:59 | P.PN ---
Subjective Progress Note Date: 04/03/20 Principal diagnosis: Coronary artery disease, status post four-vessel bypass grafting On 04/02/2020 patient is seen in follow-up in the intensive care unit, today is postoperative day #2, status post four-vessel coronary artery bypass grafting with MATTHEWS to the LAD, reverse SVG to the diagonal, SVG to the RCA, to the PDA with right greater saphenous vein endoscopic vein harvesting, and clip ligation of the left atrial appendage with a 35 mm ATriclip. Patient is doing well, he is sitting up in the recliner, he is on room air, in no acute distress, Sox is 93%, hemodynamically stable, he is on lactated Ringer's at a rate of 20 ML per hour. No other drips. Hemodynamically patient has been stable. He is in sinus mechanism with a rate of 80 bpm. His Marrero catheter has been discontinued, CT surgery is planning on removing the Cordis and the a line, his PA catheter was discontinued yesterday, he still has a mediastinal and left pleural chest tubes Y connected as been 330 ML of thin serosanguineous output in the last 24 hours. No evidence of air leak was noted. Lung sounds are clear, no rhonchi, no wheezes no crackles. Today's chest x-ray reviewed, showing postoperative changes with bibasilar consolidation and small effusion. Today's labs have been reviewed, white blood cell count is 11.9, hemoglobin is 9.9, sodium is 133, the rest of the chest was were within normal limits, B1 is 22 creatinine 0.66 The patient is seen today 04/03/2020 in follow-up in the intensive care unit. This is postoperative day #3. Status post coronary artery bypass grafting u tilizing the MATTHEWS to LAD, reverse saphenous graft to the diagonal, RCA and PDA. He is currently sitting up in a chair at the bedside. Awake and alert in no acute distress. He is maintaining O2 saturation in the 90s on room air. He continues to work well with the incentive spirometer. He remains on amiodarone drip at 0.5 mg/m. Currently in sinus rhythm. Being transitioned to oral amiodarone today. He has lactated Ringer's at 20 ML's per hour. White count 14.6. Hemoglobin 10.2. Sodium 133. Potassium 4.5. Creatinine 0.71. Chest x- ray reveals interval removal mediastinal chest tube. Persistent left-sided chest tube. No evidence of pneumothorax. Small bilateral pleural effusions. He did receive Lasix IV 1 today. Objective - Vital Signs Vital signs: Vital Signs Temp 98.3 F 04/03/20 04:00 Pulse 72 04/03/20 07:00 Resp 13 04/03/20 07:00 BP 138/77 04/03/20 07:00 Pulse Ox 93 L 04/03/20 07:00 Intake & Output 04/02/20 04/03/20 04/03/20 18:59 06:59 18:59 Intake Total 1109.5 373.3 20 Output Total 430 750 0 Balance 679.5 -376.7 20 Weight 89.3 kg Intake: IV 243 340 20 Amiodarone 300 mg In 100 Dextrose 5% in Water 250 ml @ 0.5 MG/MIN 25 mls/hr IV .Q10H PRN Rx#: [id number] Lactated Ringers 1,000 ml 240 240 20 @ 20 mls/hr IV .Q24H [facility] Rx#:[id number] Pressure Bag 3 Intake, IV Titration 466.5 33.3 Amount Amiodarone 360 mg In 166.5 33.3 Dextrose 5% in Water 200 ml @ 1 MG/MIN 33.333 mls/ hr IV .Q6H PRN Rx#: [id number] Dextrose 5% in Water 100 300 ml @ 618 mls/hr IV .Q10M PRN with Amiodarone 150 mg Rx#:[id number] Oral 400 Output: Chest Tube Drainage 80 100 Chest Tube Left Pleural/ 80 100 Mediastinal Urine 350 650 0 Other: # Voids 0 0 ABP, PAP, CO, CI - Last Documented Arterial Blood Pressure 120/49 Pulmonary Artery Pressure 15/2 Cardiac Output 5.5 Cardiac Index 2.7 - Exam GENERAL EXAM: Alert, very pleasant, 74-year-old male patient, on room air, with a pulse ox of 93% sitting up in the recliner, comfortable in no apparent distress. HEAD: Normocephalic/atraumatic. EYES: Normal reaction of pupils, equal size. Conjunctiva pink, sclera white. NOSE: Clear with pink turbinates. THROAT: No erythema or exudates. NECK: No masses, no JVD, no thyroid enlargement, no adenopathy. CHEST: No chest wall deformity. Symmetrical expansion. Midsternal incision is clean dry and intact, covered with surgical dressing, mediastinal and left pleural chest tube sites are clean dry and intact LUNGS: Equal air entry with faint crackles in the bilateral posterior bases. CVS: Regular rate and rhythm, normal S1 and S2, no gallops, no murmurs, no rubs ABDOMEN: Soft, nontender. No hepatosplenomegaly, normal bowel sounds, no guarding or rigidity. EXTREMITIES: No clubbing, no edema, no cyanosis, 2+ pulses and upper and lower extremities. MUSCULOSKELETAL: Muscle strength and tone normal. SPINE: No scoliosis or deformity SKIN: No rashes, right leg endoscopic harvest site incision covered with a surgical dressing, clean dry and intact CENTRAL NERVOUS SYSTEM: No focal deficits, tone is normal in all 4 extremities. PSYCHIATRIC: Alert and oriented -3. Appropriate affect. Intact judgment and insight. - Labs CBC & Chem 7: 04/03/20 05:18 04/03/20 05:18 Labs: Abnormal Lab Results - Last 24 Hours (Table) 04/02/20 04/02/20 04/03/20 Range/Units 16:38 20:41 05:18 WBC 14.6 H (3.8-10.6) k/uL RBC 3.41 L (4.30-5.90) m/uL Hgb 10.2 L (13.0-17.5) gm/dL Hct 30.9 L (39.0-53.0) % Neutrophils # 12.0 H (1.3-7.7) k/uL Sodium (137-145) mmol/L Glucose (74-99) mg/dL POC Glucose (mg/dL) 139 H 117 H (75-99) mg/dL Calcium (8.4-10.2) mg/dL Total Protein (6.3-8.2) g/dL Albumin (3.5-5.0) g/dL 04/03/20 Range/Units 05:18 WBC (3.8-10.6) k/uL RBC (4.30-5.90) m/uL Hgb (13.0-17.5) gm/dL Hct (39.0-53.0) % Neutrophils # (1.3-7.7) k/uL Sodium 133 L (137-145) mmol/L Glucose 108 H (74-99) mg/dL POC Glucose (mg/dL) (75-99) mg/dL Calcium 7.9 L (8.4-10.2) mg/dL Total Protein 5.5 L (6.3-8.2) g/dL Albumin 3.3 L (3.5-5.0) g/dL Assessment and Plan Assessment: #1. Symptomatic multivessel coronary artery disease, status post four-vessel bypass grafting, with the MATTHEWS to the LAD, reverse SVG to the diagonal, SVG to the RCA, and PDA with right greater saphenous vein endoscopic vein harvesting, clip ligation of the left atrial appendage with a 35 mm H clip and intraoperative FRANCISCO, postoperative day #3 #2. Routine postoperative ventilator management, with extubation at 6 hours post surgery #3. Acute blood loss anemia, expected outcome of bypass grafting surgery #4. History of hypertension #5. History of hyperlipidemia #6. History of coronary artery disease #7. History of skin cancer #8. Hypothyroidism #9. Benign prostatic hypertrophy Plan: The patient was seen and evaluated by Dr. Morales Chest x-ray and labs reviewed Lasix 20 mg IV 1 is a.m. Doing well on room air Working well with the incentive spirometer Increase his activity as tolerated We will continue to follow I, the cosigning physician, performed a history & physical examination of the patient. Lungs sounds with faint crackles in the bilateral posterior bases. Maintaining good O2 saturations in the 90s on room air. I discussed the assessment and plan of care with my nurse practitioner, Ilene Lira. I attest to the above note as dictated by her.
--- NOTE | 2020-04-03 09:02 | P.PN ---
Subjective Progress Note Date: 04/03/20 Principal diagnosis: Coronary artery disease status post CABG This is a pleasant 74-year-old male past medical history significant for coronary artery disease with multivessel coronary artery disease, 99% mid LAD stenosis, 70% proximal OM1, 99% distal RCA and 99% mid PDA identified on heart catheterization 03/21/2020, preserved ejection fraction 55% on echo 03/13/2020, hyperlipidemia. He follows in the office with Dr. Asif in the office. We have been asked to see in consultation for cardiac care status post CABG. Patient is currently intubated status post bypass and only minimally responsive on ventilator. Per documentation patient had a MATTHEWS to LAD, SVG to diagonal, SVG to RCA and SVG to PDA performed. Blood pressures been stable with systolics in the 120s to 140s and pulmonary arterial pressures have been approximately 40/20. Per ICU staff, there was concern of dynamic EKG changes inferiorly and patient was placed on a nitroglycerin drip. Patient is on ventilator and oxygenating well on mechanical ventilation. 04/02/2020 Patient states that overall he is feeling well. He denies any chest pain or anginal type symptoms. He does have reproducible sternotomy pain. 04/03/2020 Patient states he is doing well. He did have a short run of atrial fibrillation overnight which he did feel however this converted back to normal sinus rhythm. He remains in normal sinus rhythm. He denies any chest pain or pressure. REVIEW OF SYSTEMS At the time of my exam: Denies any chest pain or pressure, shortness breath, nausea, vomiting or diarrhea PHYSICAL EXAMINATION Blood pressure 129/83 heart rate 76 afebrile and maintaining oxygen saturation on 97% on mechanical ventilation. CONSTITUTIONAL: No apparent distress, intubated and sedated, not responsive to verbal stimuli HEENT: Head is normocephalic. Pupils are equal, round. Sclerae anicteric. Mucous membranes of the mouth are moist. + Endotracheal tube, No JVD. No carotid bruit. CHEST EXAMINATION: Coarse breath sounds bilaterally, hourly diminished at bases, + chest tube bilaterally and sternotomy incision HEART EXAMINATION: Regular rate and rhythm. S1, S2 heard. No murmurs, gallops or rub. ABDOMEN: Soft, nontender. Positive bowel sounds. EXTREMITIES: 2+ peripheral pulses, no lower extremity edema and no calf tenderness. NEUROLOGIC EXAMINATION: Patient is sedated and intubated not responding to verba l stimuli ASSESSMENT 1. Coronary artery disease status post CABG postop day #2 with MATTHEWS to LAD, SVG to diagonal, SVG to RCA and SVG to PDA 2. Essential hypertension on home Imdur and Lopressor 3. Hyperlipidemia 4. Anemia and thrombocytopenia, likely related to surgery 5. Postoperative atrial fibrillation only for a short run PLAN Discussed atrial fibrillation with patient wishes, and post cardiac surgery. Continue with amiodarone and no anticoagulation at this time. We will continue to monitor for any further atrial fibrillation burden. Continue aspirin, Plavix, metoprolol 25 mg twice a day. Blood pressure appears controlled. Continue with Lipitor. Continue supportive care. Objective - Vital Signs Vital signs: Vital Signs Temp 98.3 F 04/03/20 04:00 Pulse 72 04/03/20 07:00 Resp 13 04/03/20 07:00 BP 138/77 04/03/20 07:00 Pulse Ox 93 L 04/03/20 07:00 Intake & Output 04/02/20 04/03/20 04/03/20 18:59 06:59 18:59 Intake Total 1109.5 373.3 20 Output Total 430 750 0 Balance 679.5 -376.7 20 Weight 89.3 kg Intake: IV 243 340 20 Amiodarone 300 mg In 100 Dextrose 5% in Water 250 ml @ 0.5 MG/MIN 25 mls/hr IV .Q10H PRN Rx#: [id number] Lactated Ringers 1,000 ml 240 240 20 @ 20 mls/hr IV .Q24H [facility] Rx#:[id number] Pressure Bag 3 Intake, IV Titration 466.5 33.3 Amount Amiodarone 360 mg In 166.5 33.3 Dextrose 5% in Water 200 ml @ 1 MG/MIN 33.333 mls/ hr IV .Q6H PRN Rx#: [id number] Dextrose 5% in Water 100 300 ml @ 618 mls/hr IV .Q10M PRN with Amiodarone 150 mg Rx#:[id number] Oral 400 Output: Chest Tube Drainage 80 100 Chest Tube Left Pleural/ 80 100 Mediastinal Urine 350 650 0 Other: # Voids 0 0 ABP, PAP, CO, CI - Last Documented Arterial Blood Pressure 120/49 Pulmonary Artery Pressure 15/2 Cardiac Output 5.5 Cardiac Index 2.7 - Labs CBC & Chem 7: 04/03/20 05:18 04/03/20 05:18 Labs: Abnormal Lab Results - Last 24 Hours (Table) 04/02/20 04/02/20 04/03/20 Range/Units 16:38 20:41 05:18 WBC 14.6 H (3.8-10.6) k/uL RBC 3.41 L (4.30-5.90) m/uL Hgb 10.2 L (13.0-17.5) gm/dL Hct 30.9 L (39.0-53.0) % Neutrophils # 12.0 H (1.3-7.7) k/uL Sodium (137-145) mmol/L Glucose (74-99) mg/dL POC Glucose (mg/dL) 139 H 117 H (75-99) mg/dL Calcium (8.4-10.2) mg/dL Total Protein (6.3-8.2) g/dL Albumin (3.5-5.0) g/dL 04/03/20 Range/Units 05:18 WBC (3.8-10.6) k/uL RBC (4.30-5.90) m/uL Hgb (13.0-17.5) gm/dL Hct (39.0-53.0) % Neutrophils # (1.3-7.7) k/uL Sodium 133 L (137-145) mmol/L Glucose 108 H (74-99) mg/dL POC Glucose (mg/dL) (75-99) mg/dL Calcium 7.9 L (8.4-10.2) mg/dL Total Protein 5.5 L (6.3-8.2) g/dL Albumin 3.3 L (3.5-5.0) g/dL
[2020-04-03] MEDS: TAMSULOSIN 0.4 MG CAP.ER.24H PO SCH ×2 (10:12→21:21)
[2020-04-03 11:52] LABS: Glucose,Whole Blood 144 mg/dL (75-99)
[2020-04-03] MEDS: ONDANSETRON 4 MG/2 ML VIAL IVP PRN (16:34)
[2020-04-03 16:53] LABS: Glucose,Whole Blood 100 mg/dL (75-99)
--- NOTE | 2020-04-03 19:30 | P.PN ---
Subjective This is a 74 years old male with multiple medical problems including coronary artery disease, unstable angina, hyperlipidemia, hypothyroidism, Thu and cardiac cath on 03/21 showing severe triple vessel coronary artery disease Patient underwent coronary artery bypass surgery. Today is postoperative day #1. This is a status post extubation today as well. His sitting in chair comfortable not in distress Blood pressure 123/56, heart rate 80, saturating oxygen is 97% on 2 L oxygen Left showing leukocytosis of 13.2 K, rest of BMP is unremarkable sugar control. Chest x-ray showing basilar atelectasis. Patient is currently on aspirin 325 mg, also patient is on clevidsipine drip 04/02/2020 Patient is awake and alert, is status post extubation yesterday. He denies any specific complaints. No reported chest pain or dyspnea. He is hemodynamically stable. He is off clevidipine drip labs reviewed and it looks stable as well. Remains on aspirin and Plavix, metoprolol 25 mg is added today. 04/03/2020 Patient is awake and alert, is improving gradually, no chest pain or dyspnea Hemodynamically stable and labs improving including WBC is 14 K, hemoglobin is stable at 10.9 and platelets came back to normal today at 150 5K His amiodarone was increased to 400 mg and a remains on metoprolol as well as aspirin and Plavix Patient can be transferred out of the ICU for surgery team Anticipated home discharge with home health care Objective - Vital Signs Vital signs: Vital Signs Temp 97.8 F 04/03/20 12:00 Pulse 80 04/03/20 14:00 Resp 15 04/03/20 14:00 BP 137/72 04/03/20 14:00 Pulse Ox 92 L 04/03/20 14:00 Intake & Output 04/02/20 04/03/20 04/03/20 18:59 06:59 18:59 Intake Total 1109.5 373.3 160 Output Total 799 908 7371 Balance 679.5 -376.7 -940 Weight 89.3 kg Intake: IV 243 340 160 Amiodarone 300 mg In 100 Dextrose 5% in Water 250 ml @ 0.5 MG/MIN 25 mls/hr IV .Q10H PRN Rx#: [id number] Lactated Ringers 1,000 ml 240 240 160 @ 20 mls/hr IV .Q24H [facility] Rx#:[id number] Pressure Bag 3 Intake, IV Titration 466.5 33.3 Amount Amiodarone 360 mg In 166.5 33.3 Dextrose 5% in Water 200 ml @ 1 MG/MIN 33.333 mls/ hr IV .Q6H PRN Rx#: [id number] Dextrose 5% in Water 100 300 ml @ 618 mls/hr IV .Q10M PRN with Amiodarone 150 mg Rx#:[id number] Oral 400 Output: Chest Tube Drainage 80 100 Chest Tube Left Pleural/ 80 100 Mediastinal Urine 457 993 5317 Other: Voiding Method Urinal # Voids 0 1 ABP, PAP, CO, CI - Last Documented Arterial Blood Pressure 120/49 Pulmonary Artery Pressure 15/2 Cardiac Output 5.5 Cardiac Index 2.7 - Exam GENERAL: The patient is is intubated and sedated HEENT: Pupils are round and equally reacting to light. EOMI. No scleral icterus. No conjunctival pallor. Normocephalic, atraumatic. No pharyngeal erythema. No thyromegaly. -CARDIOVASCULAR: S1 and S2 present. No murmurs, rubs, or gallops. Surgical wound is closed in dressing is in place PULMONARY: Chest is clear to auscultation, no wheezing or crackles. ABDOMEN: Soft, nontender, nondistended, normoactive bowel sounds. No palpable organomegaly. MUSCULOSKELETAL: No joint swelling or deformity. EXTREMITIES: No cyanosis, clubbing, or pedal edema. NEUROLOGICAL: Gross neurological examination did not reveal any focal deficits. SKIN: No rashes. No petechiae - Labs CBC & Chem 7: 04/03/20 05:18 04/03/20 05:18 Labs: Abnormal Lab Results - Last 24 Hours (Table) 04/02/20 04/03/20 04/03/20 Range/Units 20:41 05:18 05:18 WBC 14.6 H (3.8-10.6) k/uL RBC 3.41 L (4.30-5.90) m/uL Hgb 10.2 L (13.0-17.5) gm/dL Hct 30.9 L (39.0-53.0) % Neutrophils # 12.0 H (1.3-7.7) k/uL Sodium 133 L (137-145) mmol/L Glucose 108 H (74-99) mg/dL POC Glucose (mg/dL) 117 H (75-99) mg/dL Calcium 7.9 L (8.4-10.2) mg/dL Total Protein 5.5 L (6.3-8.2) g/dL Albumin 3.3 L (3.5-5.0) g/dL 04/03/20 04/03/20 Range/Units 11:50 16:52 WBC (3.8-10.6) k/uL RBC (4.30-5.90) m/uL Hgb (13.0-17.5) gm/dL Hct (39.0-53.0) % Neutrophils # (1.3-7.7) k/uL Sodium (137-145) mmol/L Glucose (74-99) mg/dL POC Glucose (mg/dL) 144 H 100 H (75-99) mg/dL Calcium (8.4-10.2) mg/dL Total Protein (6.3-8.2) g/dL Albumin (3.5-5.0) g/dL Assessment and Plan Assessment: Triple-vessel Coronary artery disease status post coronary artery bypass surgery. Essential hypertension Hyperlipidemia Acute blood loss anemia secondary to surgery Hypothyroidism Hyperlipidemia Plan: This is a pleasant 74 years old male status post CABG for his CAD. Continue with aspirin and Plavix, continue with metoprolol. Patient for emergency room consultants including pulmonary/critical care team, cardiology are following the patient closely. Labs and medication were reviewed.. Continue same treatment. Continue with symptomatic treatment. Resume home medication. Monitor lytes and vitals. DVT and GI prophylaxis. Further recommendations of the clinical course of the patient DVT prophylaxis: Subcutaneous heparin GI Prophylaxis: Pepcid PT/OT: Pending Thank you for consulting us
[2020-04-03 20:19] LABS: Glucose,Whole Blood 109 mg/dL (75-99)
[2020-04-03] MEDS: SENNOSIDES-DOCUSATE SODIUM 1 EACH TAB PO SCH (21:21)
[2020-04-04 04:18] VITALS: RESP 18
[2020-04-04 05:08] LABS: HGB 10.3 gm/dL (13.0-17.5); MCH 29.9 pg (25.0-35.0); MCHC 33.1 g/dL (31.0-37.0); MCV 90.2 fL (80.0-100.0); Mean Platelet Volume 8.1; Platelet Count 195 k/uL (150-450); RBC 3.44 m/uL (4.30-5.90); RDW 13.4 % (11.5-15.5); WBC 12.1 k/uL (3.8-10.6)
[2020-04-04 05:18] LABS: African American GFR (CKD) >90 (>60 ml/min/1.73 sqM); Anion Gap 4 mmol/L; Blood Urea Nitrogen 17 mg/dL (9-20); Calcium 8.3 mg/dL (8.4-10.2); Carbon Dioxide 27 mmol/L (22-30); Chloride 103 mmol/L (98-107); Glucose 101 mg/dL (74-99); Non-African American GFR(CKD) >90 (>60 ml/min/1.73 sqM); Potassium 4.2 mmol/L (3.5-5.1); Sodium 134 mmol/L (137-145)
[2020-04-04 06:53] LABS: Glucose,Whole Blood 109 mg/dL (75-99)
[2020-04-04] MEDS: INSULIN ASPART (NovoLOG) 100 UNIT/ML VIAL SQ SCH ×2 (07:17→12:27)
[2020-04-04] MEDS: PANTOPRAZOLE 40 MG TABLET PO SCH (07:33)
[2020-04-04] MEDS: LEVOTHYROXINE 125 MCG TAB PO SCH (07:34)
[2020-04-04] MEDS: IPRATROPIUM-ALBUTEROL 3 ML NEB INHALATION SCH ×2 (08:05→11:37)
--- NOTE | 2020-04-04 08:21 | P.PN ---
Subjective Progress Note Date: 04/04/20 Principal diagnosis: Coronary artery disease status post CABG This is a pleasant 74-year-old male past medical history significant for coronary artery disease with multivessel coronary artery disease, 99% mid LAD stenosis, 70% proximal OM1, 99% distal RCA and 99% mid PDA identified on heart catheterization 03/21/2020, preserved ejection fraction 55% on echo 03/13/2020, hyperlipidemia. He follows in the office with Dr. Asif in the office. We have been asked to see in consultation for cardiac care status post CABG. Patient is currently intubated status post bypass and only minimally responsive on ventilator. Per documentation patient had a MATTHEWS to LAD, SVG to diagonal, SVG to RCA and SVG to PDA performed. Blood pressures been stable with systolics in the 120s to 140s and pulmonary arterial pressures have been approximately 40/20. Per ICU staff, there was concern of dynamic EKG changes inferiorly and patient was placed on a nitroglycerin drip. Patient is on ventilator and oxygenating well on mechanical ventilation. 04/02/2020 Patient states that overall he is feeling well. He denies any chest pain or anginal type symptoms. He does have reproducible sternotomy pain. 04/03/2020 Patient states he is doing well. He did have a short run of atrial fibrillation overnight which he did feel however this converted back to normal sinus rhythm. He remains in normal sinus rhythm. He denies any chest pain or pressure. 04/04/2020 Patient seen and examined. No further episodes of atrial fibrillation. He remains in sinus rhythm. He denies any chest pain or pressure. REVIEW OF SYSTEMS At the time of my exam: Denies any chest pain or pressure, shortness breath, nausea, vomiting or diarrhea PHYSICAL EXAMINATION Blood pressure 130/76 heart rate 86 afebrile and maintaining oxygen saturation on 97% on mechanical ventilation. CONSTITUTIONAL: No apparent distress, awake and alert HEENT: Head is normocephalic. Pupils are equal, round. Sclerae anicteric. Mucous membranes of the mouth are moist. No JVD. No carotid bruit. CHEST EXAMINATION: Coarse breath sounds bilaterally, hourly diminished at bases, + chest tube bilaterally and sternotomy incision HEART EXAMINATION: Regular rate and rhythm. S1, S2 heard. No murmurs, gallops or rub. ABDOMEN: Soft, nontender. Positive bowel sounds. EXTREMITIES: 2+ peripheral pulses, no lower extremity edema and no calf tenderness. NEUROLOGIC EXAMINATION: No neurologic deficits noted ASSESSMENT 1. Coronary artery disease status post CABG with MATTHEWS to LAD, SVG to diagonal, SVG to RCA and SVG to PDA 2. Essential hypertension on home Imdur and Lopressor 3. Hyperlipidemia 4. Anemia and thrombocytopenia, improved 5. Postoperative atrial fibrillation only for a short run PLAN No further atrial fibrillation. Continue amiodarone. No anticoagulation at this time and continue to monitor. Continue aspirin, Plavix, metoprolol 25 mg twice a day. Blood pressure appears controlled. Continue with Lipitor. Continue supportive care. Objective - Vital Signs Vital signs: Vital Signs Temp 98.6 F 04/04/20 04:00 Pulse 86 04/04/20 08:07 Resp 18 04/04/20 04:00 BP 130/76 04/04/20 04:00 Pulse Ox 94 L 04/04/20 04:00 Intake & Output 04/03/20 04/04/20 04/04/20 18:59 06:59 18:59 Intake Total 160 Output Total 1100 1550 Balance -940 -1550 Weight 86 kg Intake: IV 160 Lactated Ringers 1,000 ml 160 @ 20 mls/hr IV .Q24H [facility] Rx#:[id number] Output: Urine 1100 1550 Other: Voiding Method Urinal Urinal # Voids 1 ABP, PAP, CO, CI - Last Documented Arterial Blood Pressure 120/49 Pulmonary Artery Pressure 15/2 Cardiac Output 5.5 Cardiac Index 2.7 - Labs CBC & Chem 7: 04/04/20 04:49 04/04/20 04:49 Labs: Abnormal Lab Results - Last 24 Hours (Table) 04/03/20 04/03/20 04/03/20 Range/Units 11:50 16:52 20:18 WBC (3.8-10.6) k/uL RBC (4.30-5.90) m/uL Hgb (13.0-17.5) gm/dL Hct (39.0-53.0) % Sodium (137-145) mmol/L Glucose (74-99) mg/dL POC Glucose (mg/dL) 144 H 100 H 109 H (75-99) mg/dL Calcium (8.4-10.2) mg/dL 04/04/20 04/04/20 04/04/20 Range/Units 04:49 04:49 06:51 WBC 12.1 H (3.8-10.6) k/uL RBC 3.44 L (4.30-5.90) m/uL Hgb 10.3 L (13.0-17.5) gm/dL Hct 31.0 L (39.0-53.0) % Sodium 134 L (137-145) mmol/L Glucose 101 H (74-99) mg/dL POC Glucose (mg/dL) 109 H (75-99) mg/dL Calcium 8.3 L (8.4-10.2) mg/dL
--- NOTE | 2020-04-04 08:50 | P.PN ---
Subjective Progress Note Date: 04/04/20 Principal diagnosis: Coronary artery disease, status post four-vessel bypass grafting On 04/02/2020 patient is seen in follow-up in the intensive care unit, today is postoperative day #2, status post four-vessel coronary artery bypass grafting with MATTHEWS to the LAD, reverse SVG to the diagonal, SVG to the RCA, to the PDA with right greater saphenous vein endoscopic vein harvesting, and clip ligation of the left atrial appendage with a 35 mm ATriclip. Patient is doing well, he is sitting up in the recliner, he is on room air, in no acute distress, Sox is 93%, hemodynamically stable, he is on lactated Ringer's at a rate of 20 ML per hour. No other drips. Hemodynamically patient has been stable. He is in sinus mechanism with a rate of 80 bpm. His Marrero catheter has been discontinued, CT surgery is planning on removing the Cordis and the a line, his PA catheter was discontinued yesterday, he still has a mediastinal and left pleural chest tubes Y connected as been 330 ML of thin serosanguineous output in the last 24 hours. No evidence of air leak was noted. Lung sounds are clear, no rhonchi, no wheezes no crackles. Today's chest x-ray reviewed, showing postoperative changes with bibasilar consolidation and small effusion. Today's labs have been reviewed, white blood cell count is 11.9, hemoglobin is 9.9, sodium is 133, the rest of the chest was were within normal limits, B1 is 22 creatinine 0.66 The patient is seen today 04/03/2020 in follow-up in the intensive care unit. This is postoperative day #3. Status post coronary artery bypass grafting u tilizing the MATTHEWS to LAD, reverse saphenous graft to the diagonal, RCA and PDA. He is currently sitting up in a chair at the bedside. Awake and alert in no acute distress. He is maintaining O2 saturation in the 90s on room air. He continues to work well with the incentive spirometer. He remains on amiodarone drip at 0.5 mg/m. Currently in sinus rhythm. Being transitioned to oral amiodarone today. He has lactated Ringer's at 20 ML's per hour. White count 14.6. Hemoglobin 10.2. Sodium 133. Potassium 4.5. Creatinine 0.71. Chest x- ray reveals interval removal mediastinal chest tube. Persistent left-sided chest tube. No evidence of pneumothorax. Small bilateral pleural effusions. He did receive Lasix IV 1 today. The patient is seen today 04/04/2020 in follow-up in the intensive care unit. This is postoperative day #4. He is currently sitting up in a chair at the bedside. Awake and alert in no acute distress. No shortness of breath, cough or congestion. He is maintaining O2 saturation 90s on room air. He's pulling approximately 1500 ML's on the incentive spirometer. Chest x-ray shows continued small bilateral pleural effusions. White count 12.1. Hemoglobin 10.3 . Sodium 134. Potassium 4.2. Creatinine 0.78. Only concern is a need for bowel movement. He's been up ambulating with assistance. In the shower. Objective - Vital Signs Vital signs: Vital Signs Temp 98.6 F 04/04/20 04:00 Pulse 92 04/04/20 08:17 Resp 18 04/04/20 04:00 BP 130/76 04/04/20 04:00 Pulse Ox 94 L 04/04/20 04:00 Intake & Output 04/03/20 04/04/20 04/04/20 18:59 06:59 18:59 Intake Total 160 Output Total 1100 1550 Balance -940 -1550 Weight 86 kg Intake: IV 160 Lactated Ringers 1,000 ml 160 @ 20 mls/hr IV .Q24H [facility] Rx#:[id number] Output: Urine 1100 1550 Other: Voiding Method Urinal Urinal # Voids 1 ABP, PAP, CO, CI - Last Documented Arterial Blood Pressure 120/49 Pulmonary Artery Pressure 15/2 Cardiac Output 5.5 Cardiac Index 2.7 - Exam GENERAL EXAM: Alert, very pleasant, 74-year-old male patient, on room air, sitting up in the recliner, comfortable in no apparent distress. HEAD: Normocephalic/atraumatic. EYES: Normal reaction of pupils, equal size. Conjunctiva pink, sclera white. NOSE: Clear with pink turbinates. THROAT: No erythema or exudates. NECK: No masses, no JVD, no thyroid enlargement, no adenopathy. CHEST: No chest wall deformity. Symmetrical expansion. Midsternal incision is clean dry and intact, covered with surgical dressing LUNGS: Equal air entry with faint crackles in the bilateral posterior bases. CVS: Regular rate and rhythm, normal S1 and S2, no gallops, no murmurs, no rubs ABDOMEN: Soft, nontender. No hepatosplenomegaly, normal bowel sounds, no guarding or rigidity. EXTREMITIES: No clubbing, no edema, no cyanosis, 2+ pulses and upper and lower extremities. MUSCULOSKELETAL: Muscle strength and tone normal. SPINE: No scoliosis or deformity SKIN: No rashes, right leg endoscopic harvest site incision covered with a surgical dressing, clean dry and intact CENTRAL NERVOUS SYSTEM: No focal deficits, tone is normal in all 4 extremities. PSYCHIATRIC: Alert and oriented -3. Appropriate affect. Intact judgment and insight. - Labs CBC & Chem 7: 04/04/20 04:49 04/04/20 04:49 Labs: Abnormal Lab Results - Last 24 Hours (Table) 04/03/20 04/03/20 04/03/20 Range/Units 11:50 16:52 20:18 WBC (3.8-10.6) k/uL RBC (4.30-5.90) m/uL Hgb (13.0-17.5) gm/dL Hct (39.0-53.0) % Sodium (137-145) mmol/L Glucose (74-99) mg/dL POC Glucose (mg/dL) 144 H 100 H 109 H (75-99) mg/dL Calcium (8.4-10.2) mg/dL 04/04/20 04/04/20 04/04/20 Range/Units 04:49 04:49 06:51 WBC 12.1 H (3.8-10.6) k/uL RBC 3.44 L (4.30-5.90) m/uL Hgb 10.3 L (13.0-17.5) gm/dL Hct 31.0 L (39.0-53.0) % Sodium 134 L (137-145) mmol/L Glucose 101 H (74-99) mg/dL POC Glucose (mg/dL) 109 H (75-99) mg/dL Calcium 8.3 L (8.4-10.2) mg/dL Assessment and Plan Assessment: #1. Symptomatic multivessel coronary artery disease, status post four-vessel bypass grafting, with the MATTHEWS to the LAD, reverse SVG to the diagonal, SVG to the RCA, and PDA with right greater saphenous vein endoscopic vein harvesting, clip ligation of the left atrial appendage with a 35 mm H clip and intraoperative FRANCISCO, postoperative day #4 #2. Routine postoperative ventilator management, with extubation at 6 hours post surgery #3. Acute blood loss anemia, expected outcome of bypass grafting surgery #4. History of hypertension #5. History of hyperlipidemia #6. History of coronary artery disease #7. History of skin cancer #8. Hypothyroidism #9. Benign prostatic hypertrophy Plan: The patient was seen and evaluated by Dr. Morales Chest x-ray and labs reviewed Doing well on room air Working well with the incentive spirometer Possibly home today Follow-up in the office in 1-2 weeks' time. We'll repeat a chest x-ray anirudh Booth, the cosigning physician, performed a history & physical examination of the patient. Lungs sounds with faint crackles in the bilateral posterior bases. Maintaining good O2 saturations in the 90s on room air. I discussed the assessment and plan of care with my nurse practitioner, Ilene Lira. I attest to the above note as dictated by her.
[2020-04-04] MEDS: HEPARIN SODIUM,PORCINE 5,000 UNIT/ML 1 ML VIAL SQ SCH (09:09)
[2020-04-04] MEDS: ASPIRIN 325 MG TAB PO SCH (09:10)
[2020-04-04] MEDS: MAGNESIUM HYDROXIDE 2,400 MG/10 ML CUP PO SCH (09:10)
[2020-04-04] MEDS: AMIODARONE 200 MG TAB PO SCH (09:10)
[2020-04-04] MEDS: TROSPIUM CHLORIDE 20 MG TABLET PO SCH (09:10)
[2020-04-04] MEDS: CLOPIDOGREL 75 MG TAB PO SCH (09:10)
[2020-04-04] MEDS: METOPROLOL TARTRATE 25 MG TAB PO SCH (09:10)
[2020-04-04] MEDS: TAMSULOSIN 0.4 MG CAP.ER.24H PO SCH (09:10)
[2020-04-04] MEDS: ATORVASTATIN 40 MG TAB PO SCH (09:10)
[2020-04-04] MEDS: MULTIVITAMINS, THERA 1 EACH TAB PO SCH (09:10)
[2020-04-04] MEDS: CAPSAICIN 0.025% CREAM 60 GM TUBE TOPICAL SCH (09:11)
[2020-04-04] MEDS: MUPIROCIN 2% OINT 22 GM TUBE NASAL SCH (09:12)
--- NOTE | 2020-04-04 09:44 | XR ---
EXAMINATION TYPE: XR chest 2V DATE OF EXAM: 04/04/2020 CLINICAL HISTORY: Postcardiac surgery TECHNIQUE: Frontal and lateral views of the chest are obtained. COMPARISON: 04/03/2020 chest radiograph FINDINGS: Sternotomy wires. Left atrial appendage clip. Interval removal of left-sided chest tube an d right internal jugular [place]-Pati sheath. No pneumothorax. The cardiomediastinal silhouette is uncha nged. Small bilateral pleural effusions redemonstrated. IMPRESSION: 1. Interval removal of left-sided chest tube and right internal jugular [place]-Pati sheath. No pneumoth orax. 2. Persistent small bilateral pleural effusions.
--- NOTE | 2020-04-04 11:00 | P.PN ---
Subjective Progress Note Date: 04/04/20 Principal diagnosis: Multivessel coronary artery disease. Past medical history significant for multivessel coronary artery disease, 99% mid LAD stenosis, 70% proximal OM1 stenosis, 99% distal RCA stenosis and a 99% mid PDA stenosis identified on his heart catheterization 03/21/2020, preserved ejection fraction 55% on echo 03/13/2020, hyperlipidemia, hypothyroid, BPH, family history of premature coronary artery disease with father passing of myocardial infarction at age 48. POD #4 Coronary artery bypass grafting x4 with left internal mammary artery to left anterior descending coronary artery, a reverse greater saphenous vein grafts off the aorta to the diagonal coronary artery, right coronary artery and the posterior descending coronary artery. Left greater saphenous vein endoscopic harvesting, clip ligation of the left atrial appendage with a 35 mm AtriClip and intraoperative FRANCISCO. Postoperative A. fib with RVR, unexpected but common outcome of cardiac surgery, currently sinus rhythm The patient was seen in follow-up today on 04/04/2020 at his bedside in the intensive care unit. Currently he is sitting up to the bedside chair, he is in no acute distress, he is awake, alert and oriented 3. He remains hemodynamically stable and is currently on no inotropic or pressor support. Oxygen saturations are 94% on room air and he is achieving 1500 mL on his incentive spirometry. Denies any complaints of pain or shortness of breath at this time. No further episodes of atrial fibrillation reported, the bedside monitor is currently showing normal sinus rhythm heart rate 87 BPM. No further episodes of urinary retention, urinary output in the last 8 hours was 1275 milliliters. Objective - Vital Signs Vital signs: Vital Signs Temp 98.6 F 04/04/20 04:00 Pulse 92 04/04/20 08:17 Resp 18 04/04/20 04:00 BP 130/76 04/04/20 04:00 Pulse Ox 94 L 04/04/20 04:00 Intake & Output 04/03/20 04/04/20 04/04/20 18:59 06:59 18:59 Intake Total 160 Output Total 1100 1550 Balance -940 -1550 Weight 86 kg Intake: IV 160 Lactated Ringers 1,000 ml 160 @ 20 mls/hr IV .Q24H JOSE Rx#:[id number] Output: Urine 1100 1550 Other: Voiding Method Urinal Urinal # Voids 1 ABP, PAP, CO, CI - Last Documented Arterial Blood Pressure 120/49 Pulmonary Artery Pressure 15/2 Cardiac Output 5.5 Cardiac Index 2.7 - Constitutional General appearance: Present: cooperative, no acute distress - EENT Eyes: Present: PERRLA. Absent: scleral icterus ENT: Present: hearing grossly normal - Neck Details: Neck is supple, no JVD. - Respiratory Details: Lung sounds essentially clear to his bilateral upper lobes, few scattered crackles to his bilateral bases. No wheezes or rhonchi present. Respirations are symmetrical and nonlabored. Oxygen saturation are 94% on room air. Achieving 1500 mL on his incentive spirometry. - Cardiovascular Details: Regular rhythm and rate. S1 and S2 present, negative for S3, gallop or murmur. Sternum is stable. Heart hugger is in place and he is demonstrating appropriate use. Knee-high SUMMER hose and sequential compression devices in place to his bilateral lower extremities. No edema present. - Gastrointestinal Gastrointestinal Comment(s): Abdomen is soft, nontender and nondistended. Active bowel sounds present in all 4 abdominal quadrants. No guarding or rigidity. No organomegaly appreciated. Tolerating oral intake. Passing flatus. - Genitourinary Genitourinary Comment(s): Voiding clear yellow urine. - Integumentary Integumentary Comment(s): Skin is warm and dry, no clubbing or cyanosis is present. Midline sternal incision is clean, dry and approximated. No drainage or redness is present. Gauze dressing is clean, dry and in place. Left lower extremity EVH site is clean, dry and well approximated. No drainage or redness is present. - Neurologic Neurologic: Present: CNII-XII intact - Musculoskeletal Musculoskeletal: Present: gait normal, generalized weakness, strength equal bilaterally - Psychiatric Psychiatric: Present: A&O x's 3, appropriate affect, intact judgment & insight - Allied health notes Allied health notes reviewed: nursing - Labs CBC & Chem 7: 04/04/20 04:49 04/04/20 04:49 Labs: Abnormal Lab Results - Last 24 Hours (Table) 04/03/20 04/03/20 04/03/20 Range/Units 11:50 16:52 20:18 WBC (3.8-10.6) k/uL RBC (4.30-5.90) m/uL Hgb (13.0-17.5) gm/dL Hct (39.0-53.0) % Sodium (137-145) mmol/L Glucose (74-99) mg/dL POC Glucose (mg/dL) 144 H 100 H 109 H (75-99) mg/dL Calcium (8.4-10.2) mg/dL 04/04/20 04/04/20 04/04/20 Range/Units 04:49 04:49 06:51 WBC 12.1 H (3.8-10.6) k/uL RBC 3.44 L (4.30-5.90) m/uL Hgb 10.3 L (13.0-17.5) gm/dL Hct 31.0 L (39.0-53.0) % Sodium 134 L (137-145) mmol/L Glucose 101 H (74-99) mg/dL POC Glucose (mg/dL) 109 H (75-99) mg/dL Calcium 8.3 L (8.4-10.2) mg/dL - Imaging and Cardiology Chest x-ray: image reviewed Assessment and Plan Assessment: 1. Multvessel coronary artery disease, status post four-vessel CABG 2. History of hyperlipidemia, treated 3. Hypothyroid 4. BPH 5. Family history of premature coronary artery disease 6. Lifelong nonsmoker 7. Preoperative nasal swab positive for MSSA 8. Postoperative A. fib with RVR, currently sinus, status post clip ligation of the left atrial appendage Plan: 1. Continue optimized medically with aspirin, statin, Plavix, and beta george. Will increase beta george as tolerated. 2. Continue amiodarone for atrial fibrillation prophylaxis. No anticoagulation unless in atrial fibrillation greater than 24 hours. 3. Encourage incentive spirometry use 10 times every hour while awake. Bronchodilators per pulmonology/critical care management. 4. Increase activity, ambulate as tolerated. PT/OT/cardiac rehab following. 5. Will monitor daily labs and chest x-rays. Electrolyte replacement per protocol. 6. Pain control with current medication regimen. 7. GI/DVT prophylaxis 8. Insulin management per primary care. Patient is not a diabetic, preoperative hemoglobin A1c 5.1% 9. The patient is a cardiac stepdown patient and is awaiting bed on cardiac stepdown and may transfer when bed available. 10. Discharge planning in progress. Anticipate discharge to home with home care within the next 24 hours. 11. More recommendations to follow based on patients clinical course. Time with Patient: Greater than 30
--- NOTE | 2020-04-04 11:32 | P.DS ---
Providers Date of admission: 03/31/20 05:31 Expected date of discharge: 04/04/20 Attending physician: Mihai Dodd Consults: 03/31/20 14:49 Consult Physician Routine Consulting Provider: Narayan Morales Consult Reason/Comments: Mailroom Personnel Consult: post cardiac surgery Do you want consulting provider notified?: Yes Consult Physician Routine Consulting Provider: Daniel Rodriguez Consult Reason/Comments: Agricultural Technician Consult: post cardiac surgery Do you want consulting provider notified?: Yes Consult Physician Routine Consulting Provider: Reese Ozuna Consult Reason/Comments: md gomez; [facility] patient Do you want consulting provider notified?: Yes Primary care physician: [facility] Course: FINAL DIAGNOSIS: 1. Multvessel coronary artery disease, status post four-vessel coronary artery bypass grafting surgery 2. History of hyperlipidemia, treated 3. Hypothyroid 4. Benign prostatic hypertrophy 5. Family history of premature coronary artery disease 6. Lifelong nonsmoker 7. Preoperative nasal swab positive for MSSA 8. Postoperative atrial fibrillation with rapid ventricular response, currently sinus, status post clip ligation of the left atrial appendage PRINCIPAL PROCEDURE: 1. Coronary artery bypass grafting x4 with left internal mammary artery to left anterior descending coronary artery, reverse greater saphenous vein grafts off the aorta to the diagonal coronary artery, right coronary artery and the posterior descending coronary artery. 2. Left greater saphenous vein endoscopic harvesting. 3. Clip ligation of the left atrial appendage with a 35 mm Atriclip. 4. Intraoperative transesophageal echocardiogram. HISTORY OF PRESENT ILLNESS: This is a 74-year-old gentleman who is followed by Dr. Víctor Cervantes on an outpatient basis. He has a past medical history significant for hyperlipidemia, hypothyroid, benign prostatic hypertrophy, lifelong nonsmoker, preoperative nasal swab positive for MSSA and family history of premature coronary artery disease with his father passing away at age 4848 years old from myocardial infarction. He also has a history of being very active and walking on the treadmill daily. Recently, the patient had experienced some chest discomfort/pressure and shortness of breath associated with exertion and chest pressure/discomfort was relieved with rest. He underwent a stress echocardiogram in December 2019 which demonstrated borderline EKG changes. Subsequently, for further evaluation on 03/21/2020 the patient underwent a cardiac catheterization which demonstrated a 40% stenosis to his proximal left anterior descending coronary artery, a 99% stenosis to his mid left anterior descending coronary artery, a 70% stenosis to his obtuse marginal branch of the left circumflex coronary artery, a 99% stenosis to his right coronary artery with a 99% stenosis to his posterior descending coronary artery. Also during heart catheterization a left ventriculogram was completed which showed mild anteroapical hypokinesis with an ejection fraction of 50%. Due to the findings on the heart catheterization a consult was placed to Dr. Mihai Dodd from cardiothoracic surgery for evaluation and treatment recommendations. Dr. Dodd met with the patient, discussed treatment options including myocardial revascularization surgery, with risks and benefits discussed including the STS risk score and knowing the risks and benefits of myocardial revascularization surgery wish to proceed with surgical option. HOSPITAL COURSE: The patient was admitted to the hospital on 03/31/2020, was taken to the preoperative area, prepped in the usual fashion and subsequently taken to the operating room where Dr. Mihai Dodd performed a coronary artery bypass grafting 4 with left internal mammary artery to left anterior descending coronary artery, reverse greater saphenous vein grafts off the aorta to the diagonal coronary artery, right coronary artery and to the posterior descending coronary artery. He also underwent left greater saphenous vein endoscopic harvesting, clip ligation of the left atrial appendage using a 35 mm Atriclip and an intraoperative transesophageal echocardiogram. Upon completion of the surgery the patient was transferred to the cardiovascular intensive care unit where he was recovered, monitored hemodynamically and where he progressed cardiac rehabilitation phase 1. He was extubated, all lines, tubes and supportive drips were discontinued when appropriate and transfer orders were placed to the third floor cardiac stepdown unit. Due to lack of bed kerry ilability on the cardiac stepdown unit the patient was kept in the intensive care unit as a stepdown patient until discharge. His oxygen was titrated down, he continued to work with physical, occupational therapy and cardiac rehabilitation, he was tolerating a oral diet, his pain was well-controlled and he was ready to be discharged home with [facility] care on postoperative day #4. He has received written and verbal instructions regarding his discharge medications, activity restrictions, signs and symptoms requiring physician notification and his follow-up appointment. The patient did have some postoperative atrial fibrillation which was treated accordingly. COMPLICATIONS: His postoperative period was complicated by atrial fibrillation with rapid ventricular response which was treated accordingly. CONSULTATIONS: 1. Dr. Nova for cardiology management 2. Dr. Morales and for pulmonary/critical care management. 3. Dr. Charles for medical management. DISCHARGE INSTRUCTIONS: 1. No driving for 4 weeks, or until physician gives their ok. 2. The patient should sleep in their own bed, no medical bed needed. 3. Stairs are not an issue. If the bedroom is upstairs, it is advised that the patient go up at night and down in the morning for the first week. Go slowly, using handrail and take 1 step at a time. 4. SUMMER hose are to be worn for 30 days or until physician discontinues. 5. Heart hugger is to be worn 100% of the time until physician discontinues.(except when showering) 6. No lifting, pushing, or pulling more than 10 pounds for 12 weeks. The physician will advise of any restriction changes. 7. The patient is expected to continue the prescribed walking program. 8. Continue pain control per as needed orders. 9. Continue with incentive spirometry and splinting/heart hugger until otherwise directed by the physician. 10. Must shower daily using liquid antibacterial soap and a separate white washcloth for each individual incision. 11. Routine sternal incision care. No powders, lotions, ointments on incisions. No dressings are necessary on incisions unless they are draining. Dermabond tape is to remain on sternal incision until surgeon follow-up. 12. Please call surgeon/FOX FARMER for temp greater than 101 F or purulent drainage from incisions. 13. All prescriptions given by surgeon for 30 days. Refills need to be filled through windows systems engineer/primary care physician. 14. A Red armband has been placed on the patient. It should be worn for 30 days post surgery and will be removed by the cardiac surgeons. If an ER visit is necessary, please make sure the number on the Red armband is called. 15. You have been referred to and are expected to begin Cardiac Rehab in approximately 4-6 weeks. HOME HEALTH SERVICES TO PROVIDE: RN SKILLED HOME CARE SERVICES FOR POST-OP SURGICAL PATIENTS WITH THE FOLLOWING: Coronary Artery Bypass Surgery (CABG), Mitral Valve Replacement/Repair ( MVR), Aortic Valve Replacement/Repair (AVR) RN TO CONTINUE EDUCATION FROM ``ROAD TO A HEALTH HEART PATIENT EDUCATION MANUAL (GIVEN TO PATIENT IN THE HOSPITAL) MEDICATION RECONCILIATION WITH EDUCATION NEEDED ON FIRST HOME VISIT EMPHASIZE IMPORTANCE OF WEARING BREAST SUPPORT/HEART HUGGER ENCOURAGE USE OF INCENTIVE SPIROMETER 10 X EVERY HOUR WHILE AWAKE ENCOURAGE UTILIZATION OF LOWER EXTREMITY COMPRESSION STOCKINGS/SUMMER HOSE and ELEVATE LEGS ABOVE LEVEL OF HEART WHILE AT REST. ENCOURAGE AMBULATION 3-5x/day INCREASING TOLERATES, WHILE AVOIDING EXTREMES IN TEMPERATURE FREQUENCY: RN TO OPEN THE PATIENT WITHIN 24 HOURS OF DISCHARGE FROM THE HOSPITAL WITH TELEHEALTH INSTALLED AT [facility] [place], RN TO VISIT 2-3 X A WEEK FOR 4 WEEKS ESTABLISHED BY PATIENT NEEDS. LABORATORY: CBC, CMP TO BE DRAWN ON THE THIRD DAY HOME, (RAN STAT) FAX RESULTS TO [phone]. TELEHEALTH PARAMETERS: WEIGHT: NOTIFY MD OF WEIGHT GAIN OF 2 LBS IN 24 HOURS OR 5 LBS IN ONE WEEK HR: NOTIFY MD OF HR <55 BPM OR HR>100 BPM BP: NOTIFY MD IF BP <90/55 OR BP>140/100 O2 SAT: NOTIFY MD IF PO2<93% ON ROOM AIR SEND TELEHEALTH REPORT TO ANVILSMITH AND CARDIOVASCULAR SURGEON THE FIRST WEEK OF CARE AND THEN BI-WEEKLY. PLEASE ADDITIONALLY COMMUNICATE ANY ABNORMALS AND NEW FINDINGS TO THE SURGEONS OFFICE. For any questions or concerns please call manager general Leyla @ or Don @ The patient will be discharged home on an amiodarone taper as follows, amiodarone 400 mg by mouth twice a day until 04/10/2020, then decrease amiodarone to 200 mg by mouth twice a day 7 days, then decrease to amiodarone 200 mg by mouth daily 7 days then discontinue. Plan - Discharge Summary Discharge Rx Participant: Yes New Discharge Prescriptions: New Aspirin 325 mg PO DAILY tab Amiodarone [Cordarone] 400 mg PO BID #47 tab Atorvastatin [Lipitor] 40 mg PO DAILY #30 tab Metoprolol Tartrate [Lopressor] 25 mg PO BID #60 tab Clopidogrel [Plavix] 75 mg PO DAILY #30 tab Pantoprazole [Protonix] 40 mg PO AC-BRKFST #30 tablet.dr Marcelosideoliver-Docusate Sodium [Senokot-S] 2 each PO HS #14 tab Acetaminophen Tab [Tylenol] 325 mg PO Q6HR PRN tab PRN Reason: Fever And/ Or Pain Continue Multivitamins, Thera [Multivitamin (formulary)] 1 tab PO DAILY Alfuzosin HCl [Uroxatral] 10 mg PO HS Fish Oil/Dha/Epa [Fish Oil 1,200 mg Fish Oil] 1 cap PO HS Levothyroxine Sodium [Synthroid] 125 mcg PO DAILY Fesoterodine Fumarate [Toviaz] 4 mg PO DAILY Discontinued Aspirin EC [Ecotrin Low Dose] 81 mg PO DAILY Rosuvastatin Calcium [Crestor] 5 mg PO DAILY Isosorbide Mononitrate ER [Imdur] 30 mg PO DAILY #30 tab.er.24h Nitroglycerin Sl Tabs [Nitrostat] 0.4 mg SUBLINGUAL Q5M PRN #25 tab PRN Reason: Chest Pain Metoprolol Tartrate [Lopressor] 25 mg PO BID Mupirocin 2% Oint [Bactroban 2% Oint] 1 applic NASAL BID Discharge Medication List Alfuzosin HCl [Uroxatral] 10 mg PO HS 07/13/18 [History] Fish Oil/Dha/Epa [Fish Oil 1,200 mg Fish Oil] 1 cap PO HS 07/13/18 [History] Multivitamins, Thera [Multivitamin (formulary)] 1 tab PO DAILY 07/13/18 [History] Levothyroxine Sodium [Synthroid] 125 mcg PO DAILY 01/15/19 [History] Fesoterodine Fumarate [Toviaz] 4 mg PO DAILY 03/18/20 [History] Acetaminophen Tab [Tylenol] 325 mg PO Q6HR PRN tab 04/04/20 [Rx] Amiodarone [Cordarone] 400 mg PO BID #47 tab 04/04/20 [Rx] Aspirin 325 mg PO DAILY tab 04/04/20 [Rx] Atorvastatin [Lipitor] 40 mg PO DAILY #30 tab 04/04/20 [Rx] Clopidogrel [Plavix] 75 mg PO DAILY #30 tab 04/04/20 [Rx] Metoprolol Tartrate [Lopressor] 25 mg PO BID #60 tab 04/04/20 [Rx] Pantoprazole [Protonix] 40 mg PO ANDERSFSMore #30 tablet. 04/04/20 [Rx] Sennosides-Docusate Sodium [Senokot-S] 2 each PO HS #14 tab 04/04/20 [Rx] Follow up Appointment(s)/Referral(s): Leyla Argueta NPC [Nurse Practitioner] - 04/09/20 12:45 pm Stepan Asif MD [STAFF PHYSICIAN] - 04/14/20 10:00 am Rehab [facility],Cardiac [NON-STAFF] - 4 Weeks (You will receive a phone call for Cardiac Rehab eval approximately 4-6 weeks after surgery) Víctor Cervantes DO [Primary Care Provider] - 04/15/20 2:00 pm Narayan Morales DO [Doctor of Osteopathic Medicine] - 05/01/20 10:30 am [facility], [NON-STAFF] - 1-2 Days Mihai Dodd MD [STAFF PHYSICIAN] - 4 Weeks (office will call with a follow up appointment. ) Ambulatory/Diagnostic Orders: Complete Blood Count w/diff [LAB.AMB] Time Frame: 04/07/20, Facility: [facility], Location: Laboratory [facility] Comprehensive Metabolic Panel [LAB.AMB] Time Frame: 04/07/20, Facility: [facility], Location: [facility] Activity/Diet/Wound Care/Special Instructions: DISCHARGE INSTRUCTIONS: 1. No driving for 4 weeks, or until physician gives their ok. 2. The patient should sleep in their own bed, no medical bed needed. 3. Stairs are not an issue. If the bedroom is upstairs, it is advised that the patient go up at night and down in the morning for the first week. Go slowly, using handrail and take 1 step at a time. 4. SUMMER hose are to be worn for 30 days or until physician discontinues. 5. Heart hugger is to be worn 100% of the time until physician discontinues.(except when showering) 6. No lifting, pushing, or pulling more than 10 pounds for 12 weeks. The physician will advise of any restriction changes. 7. The patient is expected to continue the prescribed walking program. 8. Continue pain control per as needed orders. 9. Continue with incentive spirometry and splinting/heart hugger until otherwise directed by the physician. 10. Must shower daily using liquid antibacterial soap and a separate white washcloth for each individual incision. 11. Routine sternal incision care. No powders, lotions, ointments on incisions. No dressings are necessary on incisions unless they are draining. Dermabond tape is to remain on sternal incision until surgeon follow-up. 12. Please call surgeon/FOX FARMER for temp greater than 101 F or purulent drainage from incisions. 13. All prescriptions given by surgeon for 30 days. Refills need to be filled through windows systems engineer/primary care physician. 14. A Red armband has been placed on the patient. It should be worn for 30 days post surgery and will be removed by the cardiac surgeons. If an ER visit is necessary, please make sure the number on the Red armband is called. 15. You have been referred to and are expected to begin Cardiac Rehab in approximately 4-6 weeks. HOME HEALTH SERVICES TO PROVIDE: RN SKILLED HOME CARE SERVICES FOR POST-OP SURGICAL PATIENTS WITH THE FOLLOWING: Coronary Artery Bypass Surgery (CABG), Mitral Valve Replacement/Repair ( MVR), Aortic Valve Replacement/Repair (AVR) RN TO CONTINUE EDUCATION FROM ``ROAD TO A HEALTH HEART PATIENT EDUCATION MANUAL (GIVEN TO PATIENT IN THE HOSPITAL) MEDICATION RECONCILIATION WITH EDUCATION NEEDED ON FIRST HOME VISIT EMPHASIZE IMPORTANCE OF WEARING BREAST SUPPORT/HEART HUGGER ENCOURAGE USE OF INCENTIVE SPIROMETER 10 X EVERY HOUR WHILE AWAKE ENCOURAGE UTILIZATION OF LOWER EXTREMITY COMPRESSION STOCKINGS/SUMMER HOSE and ELEVATE LEGS ABOVE LEVEL OF HEART WHILE AT REST. ENCOURAGE AMBULATION 3-5x/day INCREASING TOLERATES, WHILE AVOIDING EXTREMES IN TEMPERATURE FREQUENCY: RN TO OPEN THE PATIENT WITHIN 24 HOURS OF DISCHARGE FROM THE HOSPITAL WITH TELEHEALTH INSTALLED AT [facility], RN TO VISIT 2-3 X A WEEK FOR 4 WEEKS ESTABLISHED BY PATIENT NEEDS. LABORATORY: CBC, CMP TO BE DRAWN ON THE THIRD DAY HOME, (RAN STAT) FAX RESULTS TO [phone]. TELEHEALTH PARAMETERS: WEIGHT: NOTIFY MD OF WEIGHT GAIN OF 2 LBS IN 24 HOURS OR 5 LBS IN ONE WEEK HR: NOTIFY MD OF HR <55 BPM OR HR>100 BPM BP: NOTIFY MD IF BP <90/55 OR BP>140/100 O2 SAT: NOTIFY MD IF PO2<93% ON ROOM AIR SEND TELEHEALTH REPORT TO ANVILSMITH AND CARDIOVASCULAR SURGEON THE FIRST WEEK OF CARE AND THEN BI-WEEKLY. PLEASE ADDITIONALLY COMMUNICATE ANY ABNORMALS AND NEW FINDINGS TO THE SURGEONS OFFICE. For any questions or concerns please call manager general Leyla @ or Don @ Discharge Disposition: HOME WITH HOME HEALTH SERVICES
[2020-04-04 11:51] LABS: Glucose,Whole Blood 114 mg/dL (75-99)
[2020-04-04 12:22] VITALS: BP 129/63; PULSE 88; TEMP 98.2
--- NOTE | 2020-04-05 00:17 | P.PN ---
Subjective This is a 74 years old male with multiple medical problems including coronary artery disease, unstable angina, hyperlipidemia, hypothyroidism, Thu and cardiac cath on 03/21 showing severe triple vessel coronary artery disease Patient underwent coronary artery bypass surgery. Today is postoperative day #1. This is a status post extubation today as well. His sitting in chair comfortable not in distress Blood pressure 123/56, heart rate 80, saturating oxygen is 97% on 2 L oxygen Left showing leukocytosis of 13.2 K, rest of BMP is unremarkable sugar control. Chest x-ray showing basilar atelectasis. Patient is currently on aspirin 325 mg, also patient is on clevidsipine drip 04/02/2020 Patient is awake and alert, is status post extubation yesterday. He denies any specific complaints. No reported chest pain or dyspnea. He is hemodynamically stable. He is off clevidipine drip labs reviewed and it looks stable as well. Remains on aspirin and Plavix, metoprolol 25 mg is added today. 04/03/2020 Patient is awake and alert, is improving gradually, no chest pain or dyspnea Hemodynamically stable and labs improving including WBC is 14 K, hemoglobin is stable at 10.9 and platelets came back to normal today at 150 5K His amiodarone was increased to 400 mg and a remains on metoprolol as well as aspirin and Plavix Patient can be transferred out of the ICU for surgery team Anticipated home discharge with home health care 04/04/2020 Patient sitting in chair comfortable, fully awake oriented, no chest pain or dyspnea. Tolerating diet well.. His vitals are stable. Labs are reviewed, walking with no problem. His complains from some constipation and his been treated by prone juice. Several consult on the case Patient is medically stable. Objective - Vital Signs Vital signs: Vital Signs Temp 98.2 F 04/04/20 12:00 Pulse 88 04/04/20 12:00 Resp 18 04/04/20 12:00 BP 129/63 04/04/20 12:00 Pulse Ox 94 L 04/04/20 12:00 Intake & Output 04/03/20 04/04/20 04/04/20 18:59 06:59 18:59 Intake Total 160 Output Total 1100 1550 125 Balance -940 -1550 -125 Weight 86 kg Intake: IV 160 Lactated Ringers 1,000 ml 160 @ 20 mls/hr IV .Q24H [facility] Rx#:[id number] Output: Urine 1100 1550 125 Other: Voiding Method Urinal Urinal Urinal # Voids 1 ABP, PAP, CO, CI - Last Documented Arterial Blood Pressure 120/49 Pulmonary Artery Pressure 15/2 Cardiac Output 5.5 Cardiac Index 2.7 - Exam GENERAL: The patient is is intubated and sedated HEENT: Pupils are round and equally reacting to light. EOMI. No scleral icterus. No conjunctival pallor. Normocephalic, atraumatic. No pharyngeal erythema. No thyromegaly. -CARDIOVASCULAR: S1 and S2 present. No murmurs, rubs, or gallops. Surgical wound is closed in dressing is in place PULMONARY: Chest is clear to auscultation, no wheezing or crackles. ABDOMEN: Soft, nontender, nondistended, normoactive bowel sounds. No palpable organomegaly. MUSCULOSKELETAL: No joint swelling or deformity. EXTREMITIES: No cyanosis, clubbing, or pedal edema. NEUROLOGICAL: Gross neurological examination did not reveal any focal deficits. SKIN: No rashes. No petechiae - Labs CBC & Chem 7: 04/04/20 04:49 04/04/20 04:49 Labs: Abnormal Lab Results - Last 24 Hours (Table) 04/03/20 04/03/20 04/04/20 Range/Units 16:52 20:18 04:49 WBC 12.1 H (3.8-10.6) k/uL RBC 3.44 L (4.30-5.90) m/uL Hgb 10.3 L (13.0-17.5) gm/dL Hct 31.0 L (39.0-53.0) % Sodium (137-145) mmol/L Glucose (74-99) mg/dL POC Glucose (mg/dL) 100 H 109 H (75-99) mg/dL Calcium (8.4-10.2) mg/dL 04/04/20 04/04/20 04/04/20 Range/Units 04:49 06:51 11:39 WBC (3.8-10.6) k/uL RBC (4.30-5.90) m/uL Hgb (13.0-17.5) gm/dL Hct (39.0-53.0) % Sodium 134 L (137-145) mmol/L Glucose 101 H (74-99) mg/dL POC Glucose (mg/dL) 109 H 114 H (75-99) mg/dL Calcium 8.3 L (8.4-10.2) mg/dL Assessment and Plan Assessment: Triple-vessel Coronary artery disease status post coronary artery bypass surger y. Essential hypertension Hyperlipidemia Acute blood loss anemia secondary to surgery Hypothyroidism Hyperlipidemia Plan: This is a pleasant 74 years old male status post CABG for his CAD. Continue with aspirin and Plavix, continue with metoprolol. Patient for emergency room consultants including pulmonary/critical care team, cardiology are following the patient closely. Labs and medication were reviewed.. Continue same treatment. Continue with symptomatic treatment. Resume home medication. Monitor lytes and vitals. DVT and GI prophylaxis. Further recommendations of the clinical course of the patient DVT prophylaxis: Subcutaneous heparin GI Prophylaxis: Pepcid PT/OT: Pending Thank you for consulting us
--- NOTE | 2020-04-06 08:09 | CDI ---
Documentation Clarification Form Date: 04/06/20 From: Effie Cabrera Phone: If you have a question about this query, please contact Wen Calvert, Purchase Request Editor at [phone] between 8am and 5pm. Admit Date: 03/31/20 Discharge Date:04/04/20 Patient Name: Luis Felipe Faith Visit Number: [id number] ATTENTION: The Clinical Documentation Specialists (CDI) and [facility] Coding Staff appreciate your assistance in clarifying documentation. Please respond to the clarification below the line at the bottom and electronically sign. The CDI & [facility] Coding staff will review the response and follow-up if needed. Please note: Queries are made part of the Legal Health Record. If you have any questions, please contact the author of this message via ITS. Dear Dr. Dodd Atrial Fibrillation is documented in Dr. Kaur's 04/[address] Kaur documented postoperative atrial fibrillation only for a short run in her 04/03 - 04/04 progress notes. Documentation in the discharge summary states postoperative period was complicated by atrial fibrillation with rapid ventricular response.. History/Risk Factors: CAD, unstable angina, CABG x 4, clip ligtion of the left atrial appendage Clinical Indicators: Elevated heart rate EKG/Telemetry: Regular rate and rhythm on telemetry is documented. Treatment: IV Amiodarone In your professional opinion, can you please clarify the type of Atrial Fibrillation, if known? Chronic/Permanent Paroxysmal Persistent Other, please specify Unable to determine See Discharge Summary addendum MTDD
== END 2020-04-04 15:35 | disposition home health service (06) | DRG 236 ==
LOC: 2ORMAIN 05:31 → 2SICU 12:40
PROVIDERS: ADMIT Thoracic Surgery (Cardiothoracic Vascular Surgery); ATTEND Thoracic Surgery (Cardiothoracic Vascular Surgery)
PROC: 5A1221Z Performance of Cardiac Output, Continuous (ICD-10-PCS; principal; 2020-03-31 08:00)
PROC: 02L70CK Occlusion of Left Atrial Appendage with Extraluminal Device, Open Approach (ICD-10-PCS; principal; 2020-03-31 08:00)
PROC: 02100Z9 Bypass Coronary Artery, One Artery from Left Internal Mammary, Open Approach (ICD-10-PCS; principal; 2020-03-31 08:00)
PROC: 06BP4ZZ Excision of Right Saphenous Vein, Percutaneous Endoscopic Approach (ICD-10-PCS; principal; 2020-03-31 08:00)
PROC: B24BZZ4 Ultrasonography of Heart with Aorta, Transesophageal (ICD-10-PCS; principal; 2020-03-31 08:00)
PROC: 021209W Bypass Coronary Artery, Three Arteries from Aorta with Autologous Venous Tissue, Open Approach (ICD-10-PCS; principal; 2020-03-31 08:00)
DX: I25.110 Atherosclerotic heart disease of native coronary artery with unstable angina pectoris (principal); D62 Acute posthemorrhagic anemia; J98.11 Atelectasis; J90 Pleural effusion, not elsewhere classified; I97.190 Other postprocedural cardiac functional disturbances following cardiac surgery; D69.59 Other secondary thrombocytopenia; E03.9 Hypothyroidism, unspecified; I48.0 Paroxysmal atrial fibrillation; E78.5 Hyperlipidemia, unspecified; I10 Essential (primary) hypertension; R33.9 Retention of urine, unspecified; K59.00 Constipation, unspecified; N40.0 Benign prostatic hyperplasia without lower urinary tract symptoms; Z79.82 Long term (current) use of aspirin; Z79.890 Hormone replacement therapy; Z79.899 Other long term (current) drug therapy; Z85.828 Personal history of other malignant neoplasm of skin; Z88.6 Allergy status to analgesic agent; Z22.321 Carrier or suspected carrier of Methicillin susceptible Staphylococcus aureus; Z82.49 Family history of ischemic heart disease and other diseases of the circulatory system; Y83.2 Surgical operation with anastomosis, bypass or graft as the cause of abnormal reaction of the patient, or of later complication, without mention of misadventure at the time of the procedure
CPT/HCPCS: 71045; 71046; 80048; 80053; 82330; 82805; 83735; 84132; 85025; 85027; 85520; 85610; 85730; 86850; 86891; 86900; 86901; 86920; 94002; 94640

== ENCOUNTER 2024-05-04 12:29 | Day surgery (SDC) | payer MEDICARE ==
[2024-05-04 12:57] VITALS: RESP 16; TEMP 97.4
[2024-05-04] MEDS: LACTATED RINGERS 1,000 ML IV SCH (13:09)
[2024-05-04] MEDS: IV FLUID CONTINUATION 1,000 ML IV ONE (13:09)
[2024-05-04] MEDS ORDERED: PROPOFOL 10 MG/ML 20 ML VIAL IV ONE (14:12)
--- NOTE | 2024-05-04 14:34 | P.PCN ---
Date of Procedure: 05/04/24 Procedure(s) Performed: BRIEF HISTORY: Patient is a 78-year-old pleasant white male scheduled for an elective colonoscopy as a part of screening for colon cancer. PROCEDURE PERFORMED: Colonoscopy with biopsy. PREOPERATIVE DIAGNOSIS: Screening for colon cancer. IV sedation per Anesthesia. PROCEDURE: After informed consent was obtained, the patient, was brought into the endoscopy unit. IV sedation was administered by Anesthesia under continuous monitoring. Digital rectal examination was normal. Initially the Olympus CF-160 flexible video colonoscope was then inserted in the rectum, gradually advanced into the cecum without any difficulty. Careful examination was performed as the scope was gradually being withdrawn. Ileocecal valve and the appendiceal orifice were visualized and appeared normal. Prep was fair. Mucosa of the cecum, ascending colon, appeared normal. The transverse colon there was a 4 mm sessile polyp removed by cold biopsy. In the descending colon there was a 5 mm sessile polyp removed by cold biopsy. Rest of the transverse colon, descending colon, sigmoid colon, and rectum appeared normal. Retroflexion was performed in the rectum and no lesions were seen. The patient tolerated the procedure well. IMPRESSION: 4 mm transverse colon polyp status post cold biopsy 5 mm descending colon polyp status post cold biopsy RECOMMENDATIONS: Findings of this examination were discussed with the patient as well as his family. He was advised to follow with the biopsy results. If the biopsy reveals adenoma he can have repeat colonoscopy in 5 years.
[2024-05-04 15:02] VITALS: BP 142/68; PULSE 70
== END 2024-05-04 15:12 | disposition home or self-care (01) ==
LOC: ORWHC2ENDO 12:29
PROVIDERS: ATTEND Internal Medicine Gastroenterology
DX: Z12.11 Encounter for screening for malignant neoplasm of colon
CPT/HCPCS: 45380

== ENCOUNTER 2024-12-25 14:39 | Emergency (ER) | payer MEDICARE ==
[2024-12-25] MEDS: SODIUM CHLORIDE 0.9% 1,000 ML IV ONE (15:56)
--- NOTE | 2024-12-25 15:58 | ED ---
Dizziness HPI - General Chief Complaint: Dizziness Stated Complaint: Dizziness Time Seen by Provider: 12/25/24 15:30 Source: patient, RN notes reviewed, old records reviewed Mode of arrival: ambulatory Limitations: no limitations - History of Present Illness Initial Comments: This is a 79-year-old male to the ER for evaluation of feeling off balance and dizzy lightheaded. Patient does have history of CABG, no history of prior CVA does take aspirin every day patient states his symptoms began yesterday but he did miss his medications whole day medications a day before he thought it might be related to that symptoms mildly persisted today with just some balance issues, patient has no headache chest pain shortness of breath or abdominal pain currently no other complaints MD Complaint: dizziness, difficulty walking -: days(s) Timing: gradual onset, intermittent Description: off-balance History of Same: No History of Trauma: No Severity: mild Worsens With: nothing Associated Symptoms: denies other symptoms - Related Data Home Medications Medication Instructions Recorded Confirmed Alfuzosin HCl [Uroxatral] 10 mg PO HS 07/13/18 12/25/24 Multivitamins, Thera [Multivitamin 1 tab PO DAILY 07/13/18 12/25/24 (formulary)] Levothyroxine Sodium [Synthroid] 88 mcg PO DAILY 01/15/19 12/25/24 Gabapentin [Neurontin] 200 mg PO TID 05/01/24 12/25/24 Aspirin EC [Ecotrin Low Dose] 81 mg PO DAILY 12/25/24 12/25/24 Fesoterodine Fumarate [Toviaz] 4 mg PO HS 12/25/24 12/25/24 Metoprolol Tartrate [Lopressor] 25 mg PO HS 12/25/24 12/25/24 Rosuvastatin [Crestor] 10 mg PO HS 12/25/24 12/25/24 Sennosides-Docusate Sodium 2 tab PO DAILY 12/25/24 12/25/24 [Senokot-S] Allergies Allergy/AdvReac Type Severity Reaction Status Date / Time acetaminophen [From Tylenol] AdvReac Mild Congestion,Head Verified 12/25/24 18:29 Cold Review of Systems ROS Statement: Those systems with pertinent positive or pertinent negative responses have been documented in the HPI. ROS Other: All systems not noted in ROS Statement are negative. Past Medical History Past Medical History: Coronary Artery Disease (CAD), Cancer, Chest Pain / Angina, Hyperlipidemia, Prostate Disorder, Thyroid Disorder Additional Past Medical History / Comment(s): SKIN CANCER, had some abnormal kidney function labs in the past but no recent problems per pt. History of Any Multi-Drug Resistant Organisms: None Reported Past Surgical History: Coronary Bypass/CABG, Heart Catheterization, Hernia Repair Additional Past Surgical History / Comment(s): 4 vessel bypass Past Anesthesia/Blood Transfusion Reactions: No Reported Reaction Past Psychological History: No Psychological Hx Reported Smoking Status: Never smoker - Past Family History Mother Family Medical History: Congestive Heart Failure (CHF) Father Family Medical History: Coronary Artery Disease (CAD), Myocardial Infarction (HI) Additional Family Medical History / Comment(s): Father at 48 years old from myocardial infarction General Exam Limitations: no limitations General appearance: alert, in no apparent distress Head exam: Present: atraumatic, normocephalic, normal inspection Eye exam: Present: normal appearance, PERRL, EOMI. Absent: scleral icterus, conjunctival injection, periorbital swelling ENT exam: Present: normal exam, mucous membranes moist Neck exam: Present: normal inspection. Absent: tenderness, meningismus, lymphadenopathy Respiratory exam: Present: normal lung sounds bilaterally. Absent: respiratory distress, wheezes, rales, rhonchi, stridor Cardiovascular Exam: Present: regular rate, normal rhythm, normal heart sounds. Absent: systolic murmur, diastolic murmur, rubs, gallop, clicks GI/Abdominal exam: Present: soft, normal bowel sounds. Absent: distended, tenderness, guarding, rebound, rigid Extremities exam: Present: normal inspection, full ROM, normal capillary refill. Absent: tenderness, pedal edema, joint swelling, calf tenderness Back exam: Present: normal inspection Neurological exam: Present: alert, oriented X3, CN II-XII intact Psychiatric exam: Present: normal affect, normal mood Skin exam: Present: warm, dry, intact, normal color. Absent: rash Course Vital Signs 12/25/24 12/25/24 12/25/24 14:49 15:58 18:15 Temperature 98.0 F 97.7 F Pulse Rate 70 64 63 Respiratory 20 18 17 Rate Blood Pressure 131/70 152/73 153/79 O2 Sat by Pulse 97 96 96 Oximetry - Reevaluation(s) Reevaluation #1: 12/25/24 17:54 Medical records reviewed with the help Reevaluation #2: 12/25/24 17:55 Patient's symptoms improved able to ambulate here in the ER Reevaluation #3: 12/25/24 17:55 Patient informed of results and questions answered Reevaluation #4: Was pt. sent in by a medical professional or institution (, [facility], [facility], urgent care, hospital, or senior care...) When possible be specific @ -no Did you speak to anyone other than the patient for history (EMS, parent, family, police, friend...)? What history was obtained from this source @ -no Did you review nursing and triage notes (agree or disagree)? Why? @ -agree Are old charts reviewed (outside hosp., previous admission, EMS record, old EKG, old radiological studies, urgent care reports/EKG's, senior care records)? Report findings @ -yes Differential Diagnosis (chest pain, altered mental status, abdominal pain women, abdominal pain men, vaginal bleeding, weakness, fever, dyspnea, syncope, headache, dizziness, GI bleed, back pain, seizure, CVA, palpatations, mental health, musculoskeletal)? @ -prior EKG interpreted by me (3pts min.). @ -yes X-rays interpreted by me (1pt min.). @ -no CT interpreted by me (1pt min.). @ -yes negative for acute disease U/S interpreted by me (1pt. min.). @ -no What testing was considered but not performed or refused? (CT, X-rays, U/S, labs)? Why? @ -none What meds were considered but not given or refused? Why? @ -none Did you discuss the management of the patient with other professionals (professionals i.e. [facility] Lopez, [facility], lab, RT, psych nurse, high school social science teacher, hydroelectric plant electrical engineer, teacher, special forces officer, case picker)? Give summary @ -no Was smoking cessation discussed for >3mins.? @ -no Was critical care preformed (if so, how long)? @ -no Were there social determinants of health that impacted care today? How? (Homelessness, low income, unemployed, alcoholism, drug addiction, transportation, low edu. Level, literacy, decrease access to med. care, intermediate, rehab)? @ -none Was there de-escalation of care discussed even if they declined (Discuss DNR or withdrawal of care, Hospice)? DNR status @ -no What co-morbidities impacted this encounter? (DM, HTN, Smoking, COPD, CAD, Cancer, CVA, ARF, Chemo, Hep., AIDS, mental health diagnosis, sleep apnea, morbid obesity)? @ -none Was patient admitted / discharged? Hospital course, mention meds given and route, prescriptions, significant lab abnormalities, going to OR and other pertinent info. @ - 79 male to ER for evaluation of significant vertigo symptoms dizziness and off-balance did miss a day of medications 2 days ago symptoms began yesterday but improving here in the ER no nausea vomiting no other significant neurological complaints. Patient will continue to watch for signs or symptoms of severe ataxia but has normal CT scanning here in the ER and can be discharged home Discharge Undiagnosed new problem with uncertain prognosis? @ -no Drug Therapy requiring intensive monitoring for toxicity (Heparin, Nitro, Insulin, Cardizem)? @ -no Were any procedures done? @ -no Diagnosis/symptom? @ -Vertigo Acute, or Chronic, or Acute on Chronic? @ -Acute Uncomplicated (without systemic symptoms) or Complicated (systemic symptoms)? @ -Complicated Side effects of treatment? @ -no Exacerbation, Progression, or Severe Exacerbation? @ -exacerbation Poses a threat to life or bodily function? How? (Chest pain, USA, HI, pneumonia, PE, COPD, DKA, ARF, appy, cholecystitis, CVA, Diverticulitis, Homicidal, Suicidal, threat to staff... and all critical care pts) @ -yes with extremes of age Reevaluation #5: Differential Dizziness: Benign paroxysmal positional Vertigo, Meniere's disease, otitis media, acoustic neuroma, vertebrobasilar insufficiency, cerebellar stroke, encephalitis, hypovolemic, arrhythmia, coronary artery syndrome, anemia, this is not meant to be an all-inclusive list EKG Findings - EKG Comments: EKG Findings:: EKG is sinus 63 MT 158 QRS 105 QTc 426 - EKG Results: EKG: interpreted by YAQUELIN Medical Decision Making - Medical Decision Making 79 male to ER for evaluation of significant vertigo symptoms dizziness and off- balance did miss a day of medications 2 days ago symptoms began yesterday but improving here in the ER no nausea vomiting no other significant neurological complaints. Patient will continue to watch for signs or symptoms of severe ataxia but has normal CT scanning here in the ER and can be discharged home - Lab Data Result diagrams: 12/25/24 15:56 12/25/24 15:56 Lab Results 12/25/24 12/25/24 12/25/24 Range/Units 15:56 15:56 15:56 WBC 7.42 (4.50-10.00) 10*3/uL RBC 4.72 (4.40-5.60) 10*6/uL Hgb 14.7 (13.0-17.0) g/dL Hct 42.3 (39.6-50.0) % MCV 89.6 (80.0-97.0) fL MCH 31.1 (27.0-32.0) pg MCHC 34.8 (32.0-37.0) g/dL Plt Count 219 (140-440) 10*3/uL MPV 10.6 (9.5-12.2) fL Immature Gran % (Auto) 0.1 % Neutrophils % 49.8 % Lymphocytes % 25.2 % Monocytes % 8.0 % Eosinophils % 16.0 % Basophils % 0.9 % Immature Gran # 0.01 (0.00-0.04) 10*3/uL Neutrophils # 3.69 (1.80-7.70) 10*3/uL Lymphocytes # 1.87 (0.90-5.00) 10*3/uL Monocytes # 0.59 (0.20-1.00) 10*3/uL Eosinophils # 1.19 H (0.04-0.35) 10*3/uL Basophils # 0.07 (0.00-0.10) 10*3/uL PT 11.3 (10.0-12.5) sec INR 1.0 (<1.2) APTT 25.3 (22.0-30.0) sec Sodium 140 (137-145) mmol/L Potassium 4.2 (3.5-5.1) mmol/L Chloride 108 H (98-107) mmol/L Carbon Dioxide 24 (22-30) mmol/L Anion Gap 8 mmol/L BUN 19 (9-20) mg/dL Creatinine 1.05 (0.66-1.25) mg/dL Est GFR (CKD-EPI)AfAm 79 (>60 ml/min/1.73 sqM) Est GFR (CKD-EPI)NonAf 69 (>60 ml/min/1.73 sqM) Glucose 104 H (74-99) mg/dL Plasma Lactic Acid Joss (0.7-2.0) mmol/L Calcium 8.8 (8.4-10.2) mg/dL Phosphorus 3.5 (2.5-4.5) mg/dL Magnesium 2.2 (1.6-2.3) mg/dL Total Bilirubin 0.7 (0.2-1.3) mg/dL AST 36 (17-59) U/L ALT 33 (4-49) U/L Alkaline Phosphatase 90 (38-126) U/L Troponin I (0.000-0.034) ng/mL Total Protein 7.0 (6.3-8.2) g/dL Albumin 4.1 (3.5-5.0) g/dL 12/25/24 12/25/24 Range/Units 15:56 15:56 WBC (4.50-10.00) 10*3/uL RBC (4.40-5.60) 10*6/uL Hgb (13.0-17.0) g/dL Hct (39.6-50.0) % MCV (80.0-97.0) fL MCH (27.0-32.0) pg MCHC (32.0-37.0) g/dL Plt Count (140-440) 10*3/uL MPV (9.5-12.2) fL Immature Gran % (Auto) % Neutrophils % % Lymphocytes % % Monocytes % % Eosinophils % % Basophils % % Immature Gran # (0.00-0.04) 10*3/uL Neutrophils # (1.80-7.70) 10*3/uL Lymphocytes # (0.90-5.00) 10*3/uL Monocytes # (0.20-1.00) 10*3/uL Eosinophils # (0.04-0.35) 10*3/uL Basophils # (0.00-0.10) 10*3/uL PT (10.0-12.5) sec INR (<1.2) APTT (22.0-30.0) sec Sodium (137-145) mmol/L Potassium (3.5-5.1) mmol/L Chloride (98-107) mmol/L Carbon Dioxide (22-30) mmol/L Anion Gap mmol/L BUN (9-20) mg/dL Creatinine (0.66-1.25) mg/dL Est GFR (CKD-EPI)AfAm (>60 ml/min/1.73 sqM) Est GFR (CKD-EPI)NonAf (>60 ml/min/1.73 sqM) Glucose (74-99) mg/dL Plasma Lactic Acid Joss 1.1 (0.7-2.0) mmol/L Calcium (8.4-10.2) mg/dL Phosphorus (2.5-4.5) mg/dL Magnesium (1.6-2.3) mg/dL Total Bilirubin (0.2-1.3) mg/dL AST (17-59) U/L ALT (4-49) U/L Alkaline Phosphatase (38-126) U/L Troponin I <0.012 (0.000-0.034) ng/mL Total Protein (6.3-8.2) g/dL Albumin (3.5-5.0) g/dL - Radiology Data Radiology results: report reviewed (CT brain CTA negative for acute disease), image reviewed Disposition Clinical Impression: Dehydration, Vertigo Disposition: HOME SELF-CARE Condition: Good Instructions (If sedation given, give patient instructions): Vertigo (ED) Is patient prescribed a controlled substance at d/c from ED?: No Referrals: Víctor Cervantes DO [Primary Care Provider] - 1-2 days Time of Disposition: 18:00
[2024-12-25 16:08] LABS: Basophils # (A) 0.07 10*3/uL (0.00-0.10); Basophils % (A) 0.9 %; Eosinophils # (A) 1.19 10*3/uL (0.04-0.35); HCT 42.3 % (39.6-50.0); HGB 14.7 g/dL (13.0-17.0); Lymphocytes # (A) 1.87 10*3/uL (0.90-5.00); Lymphocytes % (A) 25.2 %; MCH 31.1 pg (27.0-32.0); MCHC 34.8 g/dL (32.0-37.0); MCV 89.6 fL (80.0-97.0); Mean Platelet Volume 10.6 fL (9.5-12.2); Monocytes # (A) 0.59 10*3/uL (0.20-1.00); Neutrophils # (A) 3.69 10*3/uL (1.80-7.70); Neutrophils % (A) 49.8 %; Platelet Count 219 10*3/uL (140-440); RBC 4.72 10*6/uL (4.40-5.60); RDW 13.1 % (11.5-14.5); WBC 7.42 10*3/uL (4.50-10.00)
[2024-12-25 16:20] LABS: ALT 33 U/L (4-49); AST 36 U/L (17-59); African American GFR (CKD) 79 (>60 ml/min/1.73 sqM); Albumin 4.1 g/dL (3.5-5.0); Alkaline Phosphatase 90 U/L (38-126); Anion Gap 8 mmol/L; Blood Urea Nitrogen 19 mg/dL (9-20); Calcium 8.8 mg/dL (8.4-10.2); Carbon Dioxide 24 mmol/L (22-30); Chloride 108 mmol/L (98-107); Glucose 104 mg/dL (74-99); Magnesium 2.2 mg/dL (1.6-2.3); Non-African American GFR(CKD) 69 (>60 ml/min/1.73 sqM); Phosphorus 3.5 mg/dL (2.5-4.5); Potassium 4.2 mmol/L (3.5-5.1); Sodium 140 mmol/L (137-145); Total Bilirubin 0.7 mg/dL (0.2-1.3)
[2024-12-25 16:23] LABS: Partial Thromboplastin Time 25.3 sec (22.0-30.0); Prothrombin Time 11.3 sec (10.0-12.5)
--- NOTE | 2024-12-25 17:12 | CT ---
EXAMINATION TYPE: CT brain wo con CT DLP: 1101 mGycm, Automated exposure control for dose reduction was used. DATE OF EXAM: 12/25/2024 5:00 PM COMPARISON: MR Pituitary 07/25/2018 CLINICAL INDICATION:Male, 79 years old with history of vertigo, dizziness TECHNIQUE: Brain: Multiple axial CT images of the brain were obtained without IV contrast. . Coronal and sagitta l reformats reviewed. FINDINGS: Brain: Extra-axial spaces: No abnormal extra-axial fluid collections. Ventricular system: Within normal limits Cerebral parenchyma: No acute intraparenchymal hemorrhage or mass effect. The rosas-white junction is well differentiated. Empty sella morphology redemonstrated. Cerebellum: Unremarkable. Mass effect: No evidence of midline shift. Intracranial vasculature: Atherosclerotic calcifications of the intracranial vessels. Soft tissues: Normal. Calvarium/osseous structures: No depressed skull fracture. Paranasal sinuses and mastoid air cells: The mastoid air cells are clear. Minimal mucosal thickening in the ethmoid sinuses. The remaining paranasal sinuses are clear. Visualized orbits: Bilateral aphakia IMPRESSION: No acute intracranial process. [facility], , 12/25/2024 5:09 PM
--- NOTE | 2024-12-25 17:33 | CT ---
EXAMINATION TYPE: CT angio head neck CT DLP: 317 mGycm, Automated exposure control for dose reduction was used. DATE OF EXAM: 12/25/2024 5:14 PM COMPARISON: CT brain 12/25/2024, carotid ultrasound 03/21/2020. CLINICAL INDICATION:Male, 79 years old with history of vertigo; PHH, dizziness TECHNIQUE: Axially acquired helical CT angiogram of the head and neck was obtained with contrast util izing 75 cc of Isovue-370 administered intravenously. Axial images are supplemented with 3D reconstru ctions which were post-processed at an independent workstation. NASCET criteria used. MIP imaging performed on a separate workstation and submitted for review. FINDINGS: CTA HEAD: No evidence of acute intracranial hemorrhage, mass effect, or midline shift. The ventricles, sulci, a nd cisterns are unremarkable. The visualized portions of the internal carotid arteries, middle cerebral arteries, anterior cerebral arteries, and posterior cerebral arteries are patent. The basilar and vertebral arteries are patent. CTA NECK: Right Carotid System: The common carotid artery and external carotid artery are patent. The carotid bifurcation demonstrate s no evidence of hemodynamically significant stenosis. The remaining portions of the internal carotid artery demonstrate normal size without significant narrowing. Left Carotid System: The common carotid artery and external carotid artery are patent. The carotid bifurcation demonstrate s no evidence of hemodynamically significant stenosis. The remaining portions of the internal carotid artery demonstrate normal size without significant narrowing. Vertebral arteries are patent without evidence hemodynamically significant stenosis. The vertebral ar teries are codominant. There is a three-vessel aortic arch. The origins of the great vessels are patent. No evidence of hemo dynamically significant stenosis. Post-CABG changes with sternotomy wires. Cervical degenerative disc disease. Couple of nonspecific mi ldly prominent superior mediastinal lymph nodes. IMPRESSION: 1. No evidence of dissection of the cervical internal carotid arteries or vertebral arteries or any e vidence of significant stenosis at the carotid bifurcations. 2. No evidence of high-grade stenosis or intracranial aneurysm. [facility], , 12/25/2024 5:31 PM
[2024-12-25 18:41] VITALS: BP 153/79; PULSE 63; RESP 17; TEMP 97.7
== END 2024-12-25 18:41 | disposition home or self-care (01) ==
LOC: EC 14:39
DX: E86.0 Dehydration (principal); Z88.6 Allergy status to analgesic agent; Z79.82 Long term (current) use of aspirin
CPT/HCPCS: 36415; 93005; 80053; 83605; 83735; 84100; 84484; 85025; 85610; 85730; 70496; 70450; 70498; 99284; 96360; Q9967